=== PATIENT | female | born 1960 | race Caucasian/White ===

== ENCOUNTER 2019-07-09 09:11 | Outpatient (CLI) | payer OTHER, SELFPAY ==
--- NOTE | 2019-07-09 10:08 | CT_ITS ---
WS: [id number] CT CHEST TECHNIQUE: Contrast enhanced CT of the chest with coronal and sagittal reformatted images. CLINICAL INFORMATION: SMOKING HISTORY COMPARISON: None. DLP: 583.[address] scans at [facility] use at least one of these dose optimization techniques: automat ed exposure control; mA and/or kV adjustment per patient size (includes targeted exams where dose is matched to clinical indication); or iterative reconstruction. FINDINGS: Mild chronic emphysematous changes. No acute pulmonary infiltrates. No suspicious pulmonary parenchym al opacities. No pleural fluid. No mediastinal or hilar lymphadenopathy. Small hepatic cyst left hepa tic lobe measuring 8 mm. Mild diffuse fatty infiltration of the liver. Small esophageal hiatal hernia . Normal caliber thoracic aorta. Proximal pulmonary arteries appear normal. Laminectomy defects lower thoracic spine. CT/CT chest w con* [id number] IMPRESSION: 1. No suspicious pulmonary parenchymal opacities today. 2. No acute pulmonary infiltrates. No consolidation or pleural fluid. 3. No mediastinal or hilar lymphadenopathy. 4. Small esophageal hiatal hernia. 5. Mild diffuse infiltration of the liver with a stable small left hepatic cys t measuring 8 mm. 6. No other significant changes from previous.
[2019-07-09] MEDS: iohexol 300 mg/mL 100 mL Btl IV (11:16)
== END 2019-07-09 09:12 | disposition home or self-care (01) ==
LOC: RAD 09:17
PROVIDERS: Family Provider Family Medicine; PCP Family Medicine; Visit Provider Family Medicine
DX: Z87.891 Personal history of nicotine dependence (principal); K44.9 Diaphragmatic hernia without obstruction or gangrene; K76.89 Other specified diseases of liver
CPT/HCPCS: 71260

== ENCOUNTER 2019-10-16 09:20 | Emergency (ER) | payer OTHER, SELFPAY ==
[2019-10-16 09:25] VITALS: BMI 32.0
--- NOTE | 2019-10-16 09:28 | XR_ITS ---
WS: [id number] RIGHT SHOULDER: 3 VIEW(S) TECHNIQUE: Internal and external rotation with Y view. HISTORY: shoulder and arm pain COMPARISON: None available. No fracture or dislocation or soft tissue abnormality. Mild AC joint and glenohumeral joint arthritis. XR/XR shoulder RT min 2V* [id number] IMPRESSION: Mild AC joint and glenohumeral joint arthritis.
[2019-10-16 09:34] VITALS: BP 175/121; PULSE 89; RESP 18; TEMP 36.9; O2SAT 98
--- NOTE | 2019-10-16 10:05 | ED_ITS ---
HPI - Extremity Problem General: Chief complaint: Extremity Problem,Nontraumatic Stated complaint: RIGHT ARM PAIN Time Seen by Provider: 10/16/19 09:22 History of Present Illness: HPI Narrative: Severe right shoulder pain radiates down the right arm. This started 3 days ago. Patient does not give a history of any trauma. Complaint: extremity pain Onset (ago): day(s) Pain Consistency: constant Location: right and upper extremity Quality: burning, aching and constant Radiation: distal Relieving factors: nothing Exacerbating factors: range of motion Associated symptoms: Reports arthralgias Review of Systems General: Reports: 10 or more systems reviewed and unremarkable except in HPI and below Musc: Reports: extremity pain, joint pain, joint stiffness and limited range of motion PFSH ED PFSH: Social History Smoking and tobacco status: current every day smoker Physical Exam Extremity: COMMON NORMALS: normal capillary refill and no clubbing, cyanosis or edema RIGHT UPPER EXTREMITY: Yes shoulder joint Right shoulder: Yes pa lpation and Yes ROM (Decreased due to pain) Course Vital Signs: Vital signs: Vital Signs Temperature 98.4 F 10/16/19 09:34 Pulse Rate 89 10/16/19 09:34 Respiratory Rate 18 10/16/19 09:34 Blood Pressure 175/121 10/16/19 09:34 Pulse Oximetry 98 10/16/19 09:34 Discharge Plan Discharge Patient Disposition: Home, Self-Care Clinical Impression: Degenerative joint disease of right shoulder Qualifiers: Osteoarthritis type: primary Qualified Code(s): M19.011 - Primary o steoarthritis, right shoulder Condition: Stable Prescriptions: New cyclobenzaprine 10 mg tablet 10 mg PO Q8H PRN (Reason: muscle spasm) Qty: 20 RF: 0 hydrocodone-acetaminophen 5-325 mg tablet 1 tab PO Q4H PRN (Reason: pain) Qty: 10 RF: 0 No Action gabapentin RF: 0 Ativan RF: 0 ibuprofen 800 mg Tablet RF: 0 Imitrex RF: 0 atenolol RF: 0 metformin RF: 0 Discharge Orders: Discharge Order (Routine); Ordered 10/16/19 Ordered By: David Loving Referrals: Alli Barbour MD [Primary Care Provider] - Patient Instructions: Arthralgia (ED) Coding Level of Care Code ED Computer Engineering Technician for Chg Fwd Exam Problem Focused
[2019-10-16 10:24] VITALS: BP 213/122; PULSE 83; RESP 18; O2SAT 98
[2019-10-16 10:28] VITALS: BP 213/122; PULSE 83; RESP 18; O2SAT 98
== END 2019-10-16 10:15 | disposition home or self-care (01) ==
PROVIDERS: Emergency Provider Family Medicine; Family Provider Family Medicine; PCP Family Medicine
DX: M19.011 Primary osteoarthritis, right shoulder (principal); F17.210 Nicotine dependence, cigarettes, uncomplicated
CPT/HCPCS: 12345; 73030; 99281; 99282

== ENCOUNTER 2020-02-26 16:11 | Outpatient (CLI) | payer OTHER, SELFPAY ==
--- NOTE | 2020-02-26 16:29 | MR_ITS ---
WS: [id number] MRI LEFT HIP NONCONTRAST TECHNIQUE: Axial T1, axial T2 fat sat, coronal T1, coronal STIR, sagittal T2 fat sat, sagittal T1, an d sagittal T2 fat sat, of both hips. CLINICAL INFORMATION: LEFT HIP PAIN COMPARISON: None. FINDINGS: Normal anatomic alignment. No acute fractures. Normal bone marrow signal in the femoral heads and nec ks. Proximal femurs demonstrate normal bone marrow signal. Sacrum and sacral ala are normal. Mild deg enerative arthritis with joint space narrowing. No evidence of avascular necrosis or subchondral racheal apse. No significant joint effusion. Normal acetabulum. Normal visualized soft tissues. No drainable fluid collection or subcutaneous edema. Sigmoid diverticulosis. No evidence of acute diverticulitis. No inguinal lymphadenopathy. MR/MR hip LT wo con* [id number] IMPRESSION: 1. Mild joint space narrowing both hips. No acute fractures. 2. No evidence of subchondral edema or subchondral collapse. No evidence of av ascular necrosis. 3. No edema in the left femoral head or neck. 4. Normal subcutaneous soft tissues. 5. No significant joint effusion.
== END 2020-02-26 16:12 | disposition home or self-care (01) ==
LOC: RADSHAW 16:16
PROVIDERS: Family Provider Family Medicine; PCP Family Medicine; Visit Provider Family Medicine
DX: M25.552 Pain in left hip (principal)
CPT/HCPCS: 73721

== ENCOUNTER → 2020-03-05 08:46 | Outpatient (BNVA) | payer OTHER, SELFPAY | PROVIDERS: Family Provider Family Medicine; PCP Family Medicine; Referring Provider Family Medicine; Visit Provider Podiatrist Foot & Ankle Surgery | DX: M79.671 Pain in right foot (principal) | CPT/HCPCS: 73630 ==

== ENCOUNTER 2020-04-06 09:28 | Emergency (ER) | payer OTHER, SELFPAY ==
--- NOTE | 2020-04-06 09:31 | XRR_ITS ---
PROCEDURE INFORMATION: Exam: XR Chest, 1 View Exam date and time: 04/06/2020 10:07 AM Age: 59 years old Clinical indication: Shortness of breath; Additional info: Covid and SOB TECHNIQUE: Imaging protocol: XR of the chest Views: 1 view. COMPARISON: CT chest w con* [id number] 07/09/2019 11:22 AM FINDINGS: Lungs: Unremarkable. No consolidation. Pleural space: Unremarkable. No evidence of pleural effusion or pneumothorax. Heart/Mediastinum: Unremarkable. No cardiomegaly. Bones/joints: Unremarkable. XR/XR chest 1V portable [id number] IMPRESSION: No acute findings.
[2020-04-06 09:41] VITALS: BP 166/81; PULSE 85; RESP 17; O2SAT 98; BMI 31.6
--- NOTE | 2020-04-06 09:49 | W.ED.SOB ---
HPI - SOB/Dyspnea General: Chief Complaint: Shortness of Breath/Dyspnea Stated Complaint: SOB/COVID+ Time Seen by Provider: 04/06/20 09:30 Source: patient Mode of arrival: ambulatory Limitations: no limitations History of Present Illness: HPI Narrative: 59-year-old female who tested positive for COVID 2 days ago. She states she has been checking her oxygen and this morning got below 95% she was concerned. Patient's here room air oxygen is 98%. She has had a mild fever and cough. She does have a history of COPD. Patient is able speak in full senses. She denies any chest pain. Associated symptoms: Deny abdominal pain, chest pain, fever(s), nausea or vomiting Review of Systems Const: Denies: fever(s), chills, body aches or change in appetite Eyes: Denies: blurry vision or eye discomfort ENMT: Denies: throat pain or dental pain Card: Denies: chest pain Resp: Reports: dyspnea and non-productive cough GI: Denies: abdominal pain, nausea, vomiting or diarrhea : Denies: dysuria Musc: Denies: neck pain or back pain Skin/Breast: Denies: rash Neuro: Denies: headache(s) Psych: Denies: depression Dayne/Lymph: Denies: easy bruising All/Imm: Denies: urticaria PFSH ED PFSH: Medical History COPD (chronic obstructive pulmonary disease) Diabetes Hypertension Tumor Surgical History H/O: hysterectomy History of appendectomy Hx of tonsillectomy Social History Smoking and tobacco status: current every day smoker Physical Exam Const: COMMON NORMALS: no acute distress, patient oriented x3 and healthy appearing HENMT: COMMON NORMALS: normocephalic and atraumatic HEAD & SCALP: normocephalic and atraumatic Eye: COMMON NORMALS: Equal, round and reactive pupils present and EOMs intact bilaterally PUPIL: Yes Equal, round and reactive pupils present Neck/C-Spine: COMMON NORMALS: full ROM and supple Chest: COMMONS NORMALS: normal inspection of the chest and normal palpation of entire chest wall Resp: COMMON NORMALS: normal respiratory effort, No retractions, No use of accessory muscles and clear to auscultation bilaterally AUSCULTATION: clear to auscultation bilaterally Cardio: COMMON NORMALS: regular rate, regular rhythm and No murmurs present (Cardio) RATE: regular rate RHYTHM: regular rhythm GI: COMMON NORMALS: Normal to inspection, nondistended, normoactive bowel sounds present, Soft to palpation, non-tender and no masses PALPATION: Yes Soft to palpation Extremity: COMMON NORMALS: normal to inspection and full ROM Neuro: COMMON NORMALS: patient oriented x3, moves all extremities and no focal motor deficits Psych: COMMON NORMALS: mental status grossly normal, Normal thought process present and cooperative THOUGHT PROCESS: Normal thought process present Skin: COMMON NORMALS: no rashes or lesions noted and no wounds GENERAL SKIN EXAM: no rashes or lesions noted Course Vital Signs: Vital signs: Vital Signs Pulse Rate 85 04/06/20 09:41 Respiratory Rate 17 04/06/20 09:41 Blood Pressure 166/81 04/06/20 09:41 Pulse Oximetry 98 04/06/20 09:41 MDM - SOB/Dyspnea MDM Narrative: Medical decision making narrative: Patient presents here with coronavirus. Patient is well-appearing here and oxygenation saturations have been in the mid 90s. She is in minimal distress here. We will give her Decadron and sent her home on albuterol. She has no signs of severe pneumonia. She is stable for discharge and is to follow-up with her PCP in 3 to 5 days and return if worsening. She is to continue to monitor her oxygen at home. Discharge Plan Discharge Patient Disposition: Home Clinical Impression: Pneumonia due to COVID-19 virus Condition: Stable Prescriptions: New albuterol sulfate 2.5 mg /3 mL (0.083 %) solution for nebulization 2.5 mg INHALATION Q4H PRN (Reason: shortness of breath or wheezing) Qty: 90 RF: 0 No Action (DME) Sole supports See Rx Instructions .Route .MEDSUPPLY Qty: 1 RF: 0 gabapentin RF: 0 Ativan RF: 0 ibuprofen 800 mg Tablet RF: 0 Imitrex RF: 0 atenolol RF: 0 metformin RF: 0 cyclobenzaprine 10 mg tablet 10 mg PO Q8H PRN (Reason: muscle spasm) Qty: 20 RF: 0 hydrocodone-acetaminophen 5-325 mg tablet 1 tab PO Q4H PRN (Reason: pain) Qty: 10 RF: 0 Discharge Orders: Discharge Order (Routine); Ordered 04/06/20 Ordered By: Abdoul Munson Referrals: Alli Barbour MD [Primary Care Provider] - 1-3 days Discharge Diet: Advance as tolerated Discharge Activity: Resume usual activity Patient Instructions: Upper Respiratory Infection (ED) Coding Level of Care Code ED Behavior Support Specialist for Chg Fwd Exam Comprehensive
[2020-04-06 10:21] VITALS: PULSE 78; RESP 18; O2SAT 93
[2020-04-06] MEDS: albuterol 8 gm MDI 2 PUFF INHALATION (10:21)
[2020-04-06 10:34] VITALS: BP 135/83; PULSE 84; RESP 18; O2SAT 98
== END 2020-04-06 10:35 | disposition home or self-care (01) ==
LOC: ER 10:11
PROVIDERS: Emergency Provider Emergency Medicine; PCP Family Medicine
DX: J44.0 Chronic obstructive pulmonary disease with (acute) lower respiratory infection (principal); U07.1 COVID-19; J12.89 Other viral pneumonia; E11.9 Type 2 diabetes mellitus without complications; I10 Essential (primary) hypertension; F17.210 Nicotine dependence, cigarettes, uncomplicated
CPT/HCPCS: 12345; 71045; 94640; 99281; 99283; J3535

== ENCOUNTER 2020-04-11 09:45 | Inpatient (IN) | payer OTHER, SELFPAY ==
[2020-04-11] VITALS (12 sets, daily range): BP systolic 99–157; BP diastolic 64–95; PULSE 61–90; RESP 18–24; TEMP 36.3–37.3; O2SAT 91–96; BMI 30.7
--- NOTE | 2020-04-11 10:09 | XR_ITS ---
WS: [id number] Portable AP upright chest, 04/11/2020 Clinical Data: dyspnea/COVID + Comparison: Portable chest, 04/06/2020. Findings: No nodules, masses or effusions are seen. The heart is normal. The pulmonary vascularity is not increased. No pneumonia or pneumothorax is seen. XR/XR chest 1V portable [id number] Impression: Negative chest.
[2020-04-11 10:29] LABS: ABG PCO2 31.7 mmHg (35-45); ABG PH Result 7.46 (7.35-7.45); Arterial Blood Gas Hematocrit 44.4 % (37-47); Base Excess ABG -0.5 mmol/L (-2.0-2.0); Blood Gas Allen Test Pos; Blood Gas Operator Identificat CAK; Blood Gas Sample Site Radial, left; Blood Gas Sample Type Arterial; HCO3 ABG 22.5 mmol/L (22-26); Oxygen Device ROOM AIR; PO2 ABG 60.2 mmHg (80.0-100.0)
--- NOTE | 2020-04-11 10:45 | W.ED.FEVER ---
HPI - Fever General: Chief Complaint: Fever Stated Complaint: covid symptoms Time Seen by Provider: 04/11/20 09:51 History of Present Illness: HPI Narrative: Pleasant 59-year-old female patient presents to the emergency department, tested positive for COVID-19 on 04/05/2020 at [place]. She was seen in the emergency department on 04/06/2020 due to O2 saturation monitoring at home readings of less than 95% yet greater than 90. She reports onset of hypoxia, O2 saturations maintaining in the 80s at home. She reports increased shortness of breath past 12 hours. She is diabetic, takes metformin for her diabetes. She reports nausea, decreased appetite. MD elicited complaint: fever and weakness Exacerbating factors: exertion Relieving factors: rest Associated symptoms: Reports chills, cough, nausea and weight loss; Deny abdominal pain, chest pain, diarrhea, dysuria, headache(s) or vomiting Review of Systems General: Reports: 10 or more systems reviewed and unremarkable except in HPI and below Const: Reports: fever(s), chills, fatigue and malaise Eyes: Denies: blurry vision or eye redness ENMT: Denies: throat pain, dental pain or disequilibrium Card: Denies: chest pain, palpitations or irregular heart rhythm Resp: Denies: dyspnea, productive cough, non-productive cough or wheezing GI: Reports: nausea; Denies: abdominal pain, vomiting or diarrhea : Denies: difficulty voiding or dysuria Musc: Reports: muscle weakness; Denies: neck pain or back pain Skin/Breast: Denies: rash or pruritus Neuro: Denies: headache(s), weakness in extremities or behavioral changes Psych: Reports: anxiety (Related to COVID diagnosis) Dayne/Lymph: Denies: easy bruising [facility] ED PFSH: Medical History (Updated 04/11/20 @ 17:31 by Deirdre Rodgers DO) COPD (chronic obstructive pulmonary disease) Diabetes Hypertension Tumor Surgical History H/O: hysterectomy History of appendectomy Hx of tonsillectomy Social History Smoking and tobacco status: current every day smoker Physical Exam Const: COMMON NORMALS: no acute distress, patient oriented x3 and alert GENERAL APPEARANCE: cooperative, frail appearing and well hydrated NUTRITIONAL APPEARANCE: obese ORIENTATION/CONSCIOUSNESS: Yes awake, Yes oriented to person, Yes oriented to place and Yes oriented to time HENMT: COMMON NORMALS: normocephalic and Normal external nose present HEAD & SCALP: normocephalic NOSE: Normal external nose present MOUTH: other (Dry mucous membranes present) Eye: COMMON NORMALS: Equal, round and reactive pupils present and EOMs intact bilaterally GENERAL EYE: appearance normal, both eyes and all related structures PUPIL: Yes Equal, round and reactive pupils present Neck/C-Spine: COMMON NORMALS: full ROM and no lymphadenopathy GENERAL: Yes normal visual inspection, Yes trachea midline and No lymphadenopathy CERVICAL SPINE: Yes cervical ROM normal and No Cervical spine tenderness Lymph: LYMPHATIC: no lymphadenopathy noted Chest: COMMONS NORMALS: normal inspection of the chest and normal palpation of entire chest wall Resp: COMMON NORMALS: normal respiratory effort EFFORT & INSPECTION: Yes able to speak in complete sentences, Yes labored and Yes uses accessory muscles (Mild) AUSCULTATION: rhonchi and diminished lung sounds (Bases) Cardio: COMMON NORMALS: regular rhythm, S1 normal heart sound present, S2 normal heart sound present and Peripheral pulses 2+ throughout RHYTHM: regular rhythm HEART SOUNDS: S1 normal heart sound present and S2 normal heart sound present PERIPHERAL PULSES: Peripheral pulses 2+ throughout GI: COMMON NORMALS: Normal to inspection, nondistended, normoactive bowel sounds present, Soft to palpation and non-tender INSPECTION: Yes normal to inspection PALPATION: Yes Soft to palpation : COMMON NORMALS: Yes no CVA tenderness BLADDER/KIDNEY EXAM: Yes no CVA tenderness Back/Pelvis: COMMON NORMALS: no CVA tenderness and thoracic and lumbar spine normal to inspection Extremity: COMMON NORMALS: normal to inspection and capillary refill normal Neuro: COMMON NORMALS: patient oriented x3 and no focal motor deficits SENSORIUM/ORIENTATION: Yes alert, Yes oriented to person, Yes oriented to place and Yes oriented to time Psych: COMMON NORMALS: mental status grossly normal, Normal thought process present and cooperative ACTIVITY/MOTOR BEHAVIOR: Yes appropriate eye contact THOUGHT PROCESS: Normal thought process present Skin: COMMON NORMALS: no rashes or lesions noted GENERAL SKIN EXAM: no rashes or lesions noted and turgor decreased Course ED course: Case discussed Dr. Bautista, patient will need admission secondary to hypoxia with supplemental O2, positive COVID, transfer of care Vital Signs: Vital signs: Vital Signs Temperature 97.7 F 04/11/20 16:06 Pulse Rate 64 04/11/20 16:06 Respiratory Rate 20 H 04/11/20 16:06 Blood Pressure 133/64 04/11/20 16:06 Pulse Oximetry 96 04/11/20 16:06 MDM - Fever Lab Data: Labs: Lab Results 04/11/20 04/11/20 04/11/20 Range/Units 10:18 10:35 10:35 WBC 5.9 (4.0-10.0) 10^3/ uL RBC 4.85 (4.1-5.3) 10^6/u L Hgb 14.6 (11.5-15.3) g/dL Hct 43.5 (37.0-47.0) % MCV 89.7 (81-99) fL MCH 30.1 (28.0-34.0) pg MCHC 33.6 (30.0-36.0) g/dL RDW 12.6 (12.1-15.1) % Plt Count 113 L (130-400) 10^3/c mm MPV 10.9 H (7.4-10.4) fL Neut % (Auto) 51.3 % Lymph % (Auto) 34.4 % Alexander % (Auto) 12.8 % Eos % (Auto) 0.3 % Baso % (Auto) 0.3 % Neut # (Auto) 3.02 (1.8-7.7) 10^3/u L Lymph # (Auto) 2.0 (0.8-4.8) 10^3/u L Alexander # (Auto) 0.8 (0.2-0.9) 10^3/u L Eos # (Auto) 0.0 (0.0-0.8) 10^3/u L Baso # (Auto) 0.0 (0.0-0.1) 10^3/u L Nucleated RBC % (a uto) 0 % Nucleated RBCs # 0.0 /100WBC PT 12.80 (12.1-14.9) SECO NDS INR 0.94 (0.8-1.2) APTT 29.0 (23.9-36.7) SECO NDS Fibrinogen 548 H (174-498) mg/dL D-Dimer 0.45 (0-0.59) ug/mIFE U Specimen Type Arterial Sample Site Radial, left ABG pH 7.46 H (7.35-7.45) ABG pCO2 31.7 L (35-45) mmHg ABG pO2 60.2 L (80.0-100.0) mmH g ABG HCO3 22.5 (22-26) mmol/L ABG Base Excess -0.5 (-2.0-2.0) mmol/ L Jensen Test Pos Hematocrit 44.4 (37-47) % O2 Delivery Device Room air FiO2 21.0 % Gis Physical Scientist ID Cak Sodium (136-145) mmol/L Potassium (3.5-5.1) mmol/L Chloride (98-107) mmol/L Carbon Dioxide (22-29) mmol/L Anion Gap (5-19) BUN (8-23) mg/dL Creatinine (0.5-0.9) mg/dL GFR Calculation (90-130) mL/min Glucose (65-115) mg/dL Calculated Osmolal ity (285-295) mOsm/k g Lactic Acid (0.5-2.2) mmol/L Calcium (8.5-10.5) mg/dL Magnesium (1.7-2.3) mg/dL Ferritin (15-150) ng/mL Total Bilirubin (0.15-1.2) mg/dL AST (0-32) U/L ALT (0-33) U/L Alkaline Phosphata se (35-105) IU/L Lactate Dehydrogen ase (135-214) U/L Creatine Kinase (26-192) U/L C-Reactive Protein (0.0-4.9) mg/L Total Protein (6.6-8.7) g/dL Albumin (3.5-5.2) g/dL Globulin (1.3-4.6) g/dL Procalcitonin (0-0.5) ng/mL SARS-CoV-2 Ag (Rap id) (Negative) 04/11/20 04/11/20 04/11/20 Range/Units 10:35 10:35 11:25 WBC (4.0-10.0) 10^3/ uL RBC (4.1-5.3) 10^6/u L Hgb (11.5-15.3) g/dL Hct (37.0-47.0) % MCV (81-99) fL MCH (28.0-34.0) pg MCHC (30.0-36.0) g/dL RDW (12.1-15.1) % Plt Count (130-400) 10^3/c mm MPV (7.4-10.4) fL Neut % (Auto) % Lymph % (Auto) % Alexander % (Auto) % Eos % (Auto) % Baso % (Auto) % Neut # (Auto) (1.8-7.7) 10^3/u L Lymph # (Auto) (0.8-4.8) 10^3/u L Alexander # (Auto) (0.2-0.9) 10^3/u L Eos # (Auto) (0.0-0.8) 10^3/u L Baso # (Auto) (0.0-0.1) 10^3/u L Nucleated RBC % (a uto) % Nucleated RBCs # /100WBC PT (12.1-14.9) SECO NDS INR (0.8-1.2) APTT (23.9-36.7) SECO NDS Fibrinogen (174-498) mg/dL D-Dimer (0-0.59) ug/mIFE U Specimen Type Sample Site ABG pH (7.35-7.45) ABG pCO2 (35-45) mmHg ABG pO2 (80.0-100.0) mmH g ABG HCO3 (22-26) mmol/L ABG Base Excess (-2.0-2.0) mmol/ L Jensen Test Hematocrit (37-47) % O2 Delivery Device FiO2 % Gis Physical Scientist ID Sodium 139 (136-145) mmol/L Potassium 3.0 L (3.5-5.1) mmol/L Chloride 104 (98-107) mmol/L Carbon Dioxide 22 (22-29) mmol/L Anion Gap 16.0 (5-19) BUN 16 (8-23) mg/dL Creatinine 0.6 (0.5-0.9) mg/dL GFR Calculation 102.0 (90-130) mL/min Glucose 106 (65-115) mg/dL Calculated Osmolal ity 290 (285-295) mOsm/k g Lactic Acid 1.2 (0.5-2.2) mmol/L Calcium 8.9 (8.5-10.5) mg/dL Magnesium 2.1 (1.7-2.3) mg/dL Ferritin 271 H (15-150) ng/mL Total Bilirubin 0.4 (0.15-1.2) mg/dL AST 22 (0-32) U/L ALT 20 (0-33) U/L Alkaline Phosphata se 88 (35-105) IU/L Lactate Dehydrogen ase 173 (135-214) U/L Creatine Kinase 47 (26-192) U/L C-Reactive Protein 17.4 H (0.0-4.9) mg/L Total Protein 7.0 (6.6-8.7) g/dL Albumin 4.1 (3.5-5.2) g/dL Globulin 2.9 (1.3-4.6) g/dL Procalcitonin 0.03 (0-0.5) ng/mL SARS-CoV-2 Ag (Rap id) Positive H (Negative) Discharge Plan Discharge Prescriptions: No Action albuterol sulfate 2.5 mg /3 mL (0.083 %) solution for nebulization 2.5 mg INHALATION Q4H PRN (Reason: shortness of breath or wheezing) Qty: 90 RF: 0 gabapentin 600 mg Tablet 600 mg PO TID RF: 0 metformin 500 mg Tablet 500 mg PO BID RF: 0 ibuprofen 800 mg Tablet 800 mg PO TID PRN (Reason: Fever) RF: 0 sumatriptan succinate 25 mg Tablet 25 mg PO Q2H PRN (Reason: Migraine Headache) RF: 0 lorazepam 1 mg Tablet 1 mg PO DAILY PRN (Reason: Anxiety) RF: 0 cyclobenzaprine 10 mg tablet 10 mg PO Q8H PRN (Reason: muscle spasm) Qty: 20 RF: 0 atorvastatin 80 mg tablet 80 mg PO BEDTIME RF: 0 atenolol-chlorthalidone 50-25 mg tablet 1 tab PO DAILY RF: 0 venlafaxine 150 mg capsule,extended release 24hr 150 mg PO DAILY RF: 0 acetaminophen 500 mg Tablet 500 - 1,000 mg PO BID PRN (Reason: Fever) RF: 0 trazodone 100 mg tablet 100 mg PO BEDTIME RF: 0 albuterol sulfate 90 mcg/actuation Hfa Aerosol Inhaler 1 inh INHALATION QID PRN (Reason: Shortness Of Breath) RF: 0 lisinopril 40 mg tablet 40 mg PO DAILY RF: 0 topiramate 50 mg tablet 50 mg PO BID RF: 0 Mucinex 600 mg Tablet Extended Release 12hr 600 mg PO Q12H PRN (Reason: Congestion) RF: 0 Coding Level of Care Code ED Security Systems Specialist for Chg Fwd Exam Comprehensive
[2020-04-11 10:47] LABS: Basophils % 0.3 %; Eosinophils % 0.3 %; Hematocrit 43.5 % (37.0-47.0); Hemoglobin 14.6 g/dL (11.5-15.3); Lymphocytes % 34.4 %; Mean Corpuscular HGB Conc 33.6 g/dL (30.0-36.0); Mean Corpuscular Hemoglobin 30.1 pg (28.0-34.0); Mean Corpuscular Volume 89.7 fL (81-99); Mean Platelet Volume 10.9 fL (7.4-10.4); Monocytes # 0.8 10^3/uL (0.2-0.9); Monocytes % 12.8 %; Neutrophils # 3.02 10^3/uL (1.8-7.7); Neutrophils % 51.3 %; Nucleated Red Blood Cells % 0 %; Platelet Count 113 10^3/cmm (130-400); Red Blood Count 4.85 10^6/uL (4.1-5.3); Red Cell Distribution Width 12.6 % (12.1-15.1); White Blood Count 5.9 10^3/uL (4.0-10.0)
[2020-04-11] MEDS: sodium chloride 0.9% 1,000 ML 999 ML IV ×2 (10:49→12:23)
[2020-04-11 10:58] LABS: INR 0.94 (0.8-1.2)
[2020-04-11 10:59] LABS: Fibrinogen 548 mg/dL (174-498)
[2020-04-11 11:02] LABS: D Dimer 0.45 ug/mIFEU (0-0.59)
[2020-04-11 11:05] LABS: Lactic Sepsis W/Reflex 1.2 mmol/L (0.5-2.2)
[2020-04-11 11:13] LABS: Procalcitonin 0.03 ng/mL (0-0.5)
[2020-04-11 11:25] LABS: Alanine Aminotransferase 20 U/L (0-33); Albumin Level 4.1 g/dL (3.5-5.2); Alkaline Phosphatase 88 IU/L (35-105); Aspartate Amino Transferase 22 U/L (0-32); Blood Urea Nitrogen 16 mg/dL (8-23); C Reactive Protein 17.4 mg/L (0.0-4.9); Calcium 8.9 mg/dL (8.5-10.5); Carbon Dioxide 22 mmol/L (22-29); Chloride 104 mmol/L (98-107); Creatine Phosphokinase 47 U/L (26-192); Ferritin 271 ng/mL (15-150); Globulin 2.9 g/dL (1.3-4.6); Glucose 106 mg/dL (65-115); Lactate Dehydrogenase 173 U/L (135-214); Magnesium 2.1 mg/dL (1.7-2.3); Osmolality Calculated 290 mOsm/kg (285-295); Sodium 139 mmol/L (136-145); Total Bilirubin 0.4 mg/dL (0.15-1.2)
[2020-04-11 12:13] LABS: SARS Covid-2 Antigen Positive (Negative)
[2020-04-11] MEDS: acetaminophen 500 mg Tablet 1000 MG PO (12:22)
--- NOTE | 2020-04-11 17:27 | PM.HP ---
Providers/Chief Complaint Primary Care Provider: Alli Barbour MD Chief Complaint: covid symptoms History of Present Illness Mary Ann Donohue is a 59 year old female with a past medical history of hypertension, migraine headaches and COPD that presents to the emergency department today for increasing shortness of breath. Patient reported that she has been having symptoms over the past 1 week. She stated that she was tested for COVID-19 and returned positive. She believes that it is community spread. She reports increasing cough, nonproductive, no hemoptysis. Stated that she lives at home with her and he has not had any symptoms. She also reports loss of taste and smell as well as diarrhea. Decreased appetite over the past 1 week. Reports she has not been taking any of her medications this week due to not feeling well. Patient was sent home with a pulse oxygen monitor and noted that her oxygen level went into the 80s therefore she came back into the hospital for further evaluation and treatment. Patient reported that she quit smoking 2 days ago Review of Systems Const: Reports: fever(s), body aches, fatigue and malaise; Denies: chills Eyes: Denies: change in vision ENMT: Reports: nasal congestion Card: Denies: chest pain, palpitations or edema Resp: Reports: dyspnea and non-productive cough; Denies: productive cough or hemoptysis GI: Reports: diarrhea; Denies: abdominal pain, nausea, vomiting, constipation, hematochezia or melena : Denies: dysuria or hematuria Musc: Denies: extremity pain or muscle cramps Skin/Breast: Denies: rash or new lesions Neuro: Denies: headache(s) or dizziness Psych: Denies: anxiety or depression Endo: Denies: polyuria or hot flashes Dayne/Lymph: Denies: easy bruising or easy bleeding Medications/Allergies Home Medications Medication Instructions Recorded Confirmed Last Taken Type cyclobenzaprine 10 mg PO Q8H PRN #20 tab 10/16/19 04/11/20 Unknown Rx gabapentin 600 mg PO TID 10/16/19 04/11/20 Unknown History ibuprofen 800 mg PO TID PRN 10/16/19 04/11/20 04/10/20 History lorazepam 1 mg PO DAILY PRN 10/16/19 04/11/20 Unknown History metformin 500 mg PO BID 10/16/19 04/11/20 Unknown History sumatriptan succinate 25 mg PO Q2H PRN 10/16/19 04/11/20 Unknown History albuterol sulfate 2.5 mg INHALATION Q4H PRN #90 ml 04/06/20 04/11/20 04/11/20 Rx acetaminophen 500 - 1,000 mg PO BID PRN 04/11/20 04/11/20 04/10/20 History albuterol sulfate 1 inh INHALATION QID PRN 04/11/20 04/11/20 04/11/20 History atenolol-chlorthalidone 1 tab PO DAILY 04/11/20 04/11/20 Unknown History atorvastatin 80 mg PO BEDTIME 04/11/20 04/11/20 04/10/20 History guaifenesin [Mucinex] 600 mg PO Q12H PRN 04/11/20 04/11/20 04/11/20 History lisinopril 40 mg PO DAILY 04/11/20 04/11/20 Unknown History topiramate 50 mg PO BID 04/11/20 04/11/20 Unknown History trazodone 100 mg PO BEDTIME 04/11/20 04/11/20 Unknown History venlafaxine 150 mg PO DAILY 04/11/20 04/11/20 Unknown History Allergies Allergy/AdvReac Type Severity Reaction Status Date / Time No Known Allergies Allergy Verified 04/11/20 10:01 PFSH Acute PFSH: Medical History COPD (chronic obstructive pulmonary disease) Diabetes Hypertension Tumor Surgical History H/O: hysterectomy History of appendectomy Hx of tonsillectomy Social History Smoking and tobacco status: current every day smoker Vitals/I&O/Wt Last Vital Signs Temp 97.7 F 04/11/20 16:06 Pulse 64 04/11/20 16:06 Resp 20 H 04/11/20 16:06 BP 133/64 04/11/20 16:06 Pulse Ox 96 04/11/20 16:06 04/11/20 04/11/20 04/11/20 06:59 14:59 22:59 Intake Total 1000 / 1000 Balance 1000 / 1000 Weight last 48 hrs Weight 76.204 kg Physical Exam Const: COMMON NORMALS: patient oriented x3 and alert GENERAL APPEARANCE: cooperative ORIENTATION/CONSCIOUSNESS: Yes awake, Yes oriented to person, Yes oriented to place and Yes oriented to time HENMT: COMMON NORMALS: normocephalic and atraumatic HEAD & SCALP: normocephalic and atraumatic Eye: COMMON NORMALS: Equal, round and reactive pupils present PUPIL: Yes Equal, round and reactive pupils present Neck/C-Spine: COMMON NORMALS: supple GENERAL: Yes normal visual inspection Resp: EFFORT & INSPECTION: Yes tachypneic and Yes uses accessory muscles AUSCULTATION: clear to auscultation bilaterally, no rhonchi and wheezes Cardio: COMMON NORMALS: regular rate, regular rhythm and No murmurs present (Cardio) RATE: regular rate RHYTHM: regular rhythm GI: COMMON NORMALS: Soft to palpation and non-tender INSPECTION: No abdominal distension AUSCULTATION: Yes normoactive bowel sounds PALPATION: Yes Soft to palpation Extremity: COMMON NORMALS: no clubbing, cyanosis or edema and no calf tenderness Neuro: COMMON NORMALS: patient oriented x3, CN's II-XII intact bilaterally, moves all extremities and no focal motor deficits SENSORIUM/ORIENTATION: Yes alert, Yes oriented to person, Yes oriented to place and Yes oriented to time SPEECH: speech normal Psych: COMMON NORMALS: mental status grossly normal and cooperative Skin: COMMON NORMALS: no rashes or lesions noted GENERAL SKIN EXAM: no rashes or lesions noted Data : 04/11/20 10:35 04/11/20 10:35 CXR: I personally reviewed and interpreted this imaging study as follows: Radiologist's impression: Portable AP upright chest, 04/11/2020 Clinical Data: dyspnea/COVID + Comparison: Portable chest, 04/06/2020. Findings: No nodules, masses or effusions are seen. The heart is normal. The pulmonary vascularity is not increased. No pneumonia or pneumothorax is seen. XR/XR chest 1V portable [id number] Impression: Negative chest. A&P Assessment and plan (1) Pneumonia due to COVID-19 virus: Admit to medical floor Isolation precautions with droplet and contact precautions On COVID-19 precautions patient tested positive prior to admission Continue with respiratory therapy to assess and treat, oxygen per protocol We will start on room?severe and dexamethasone, discussed with patient and her via telephone conference the risk and benefits of medication, they verbalized understanding and agreed with plan. Status: Acute (2) Diabetes: Low-dose sliding scale insulin as needed, hold home metformin Status: Acute (3) COPD (chronic obstructive pulmonary disease): With COVID-19 viral pneumonia as noted above, plan as above Status: Acute (4) Hypertension: Patient has been off of her lisinopril with decreased oral intake over the past week, continue on atenolol along with chlorthalidone, hold lisinopril Status: Acute Additional A&P Information Prophylaxis: Lovenox Diet: Carbohydrate consistent CODE STATUS: Do Not Resuscitate/DNI this was discussed with patient on admission, her was on face time during this conversation, no further questions at this time Attestations Medical Necessity Statement*: Patient requires hospitalization due to COVID-19 viral pneumonia Coding Level of Care Code 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
[2020-04-11] MEDS: dexamethasone 4 mg/mL INJ 6 MG IVP (18:23)
[2020-04-11] MEDS: enoxaparin 40 mg/0.4 mL Syringe SUBCUT (18:23)
[2020-04-11 19:36] LABS: Thyroid Stimulating Hormone 2.97 uIU/mL (0.27-4.20)
[2020-04-11 21:17] LABS: Glucose Point of Care 116 mg/dL (70-110)
[2020-04-11] MEDS: gabapentin 300 mg Capsule 600 MG PO (22:14)
[2020-04-11] MEDS: trazodone 100 mg Tablet PO (22:14)
[2020-04-11] MEDS: topiramate 100 mg Tablet 50 MG PO ×2 (22:25→22:44)
[2020-04-11] MEDS: sodium chloride 0.9% 1,000 ML 50 ML IV (22:29)
[2020-04-12] VITALS (10 sets, daily range): BP systolic 111–134; BP diastolic 69–81; PULSE 54–71; RESP 16–22; TEMP 36.4–36.9; O2SAT 89–98
[2020-04-12 06:23] LABS: Basophils % 0.3 %; Hematocrit 41.1 % (37.0-47.0); Hemoglobin 13.6 g/dL (11.5-15.3); Lymphocytes # 1.2 10^3/uL (0.8-4.8); Lymphocytes % 32.2 %; Mean Corpuscular HGB Conc 33.1 g/dL (30.0-36.0); Mean Corpuscular Hemoglobin 30.8 pg (28.0-34.0); Mean Platelet Volume 11.6 fL (7.4-10.4); Monocytes # 0.1 10^3/uL (0.2-0.9); Monocytes % 3.3 %; Neutrophils # 2.28 10^3/uL (1.8-7.7); Neutrophils % 63.4 %; Nucleated Red Blood Cells % 0 %; Platelet Count 139 10^3/cmm (130-400); Red Blood Count 4.42 10^6/uL (4.1-5.3); Red Cell Distribution Width 12.9 % (12.1-15.1); White Blood Count 3.6 10^3/uL (4.0-10.0)
[2020-04-12 06:40] LABS: Alanine Aminotransferase 22 U/L (0-33); Albumin Level 3.8 g/dL (3.5-5.2); Alkaline Phosphatase 87 IU/L (35-105); Aspartate Amino Transferase 24 U/L (0-32); Blood Urea Nitrogen 12 mg/dL (8-23); Calcium 8.4 mg/dL (8.5-10.5); Carbon Dioxide 20 mmol/L (22-29); Chloride 109 mmol/L (98-107); Creatinine Clr Calc Pharmacy 144.4443; Globulin 3.1 g/dL (1.3-4.6); Glomerular Filtration Rate 162.8 mL/min (90-130); Glucose 138 mg/dL (65-115); Osmolality Calculated 292 mOsm/kg (285-295); Sodium 140 mmol/L (136-145); Total Bilirubin 0.2 mg/dL (0.15-1.2); Total Protein 6.9 g/dL (6.6-8.7)
[2020-04-12] MEDS: albuterol 8 gm MDI 2 PUFF INHALATION ×2 (09:50→16:14)
[2020-04-12] MEDS: chlorthalidone 25 mg Tablet PO (10:00)
[2020-04-12] MEDS: atenolol 50 mg Tablet PO (10:00)
[2020-04-12] MEDS: topiramate 100 mg Tablet 50 MG PO ×2 (10:01→17:09)
[2020-04-12] MEDS: gabapentin 300 mg Capsule 600 MG PO ×3 (10:01→21:23)
[2020-04-12] MEDS: venlafaxine ER (24HR) 150 mg Capsule PO (10:01)
[2020-04-12 10:25] LABS: Glucose Point of Care 128 mg/dL (70-110)
--- NOTE | 2020-04-12 11:31 | PM.PN ---
Subjective Subjective: Interval history: Patient awake sitting in the chair at time of exam today. She reported some continued cough and shortness of breath. Reported continued loss of taste and smell. Stated that she was able to drink a little bit of water and eat some crackers today. Diarrhea has resolved. Vitals/I&O/Wt Last Vital Signs Temp 97.5 F L 04/12/20 07:19 Pulse 63 04/12/20 09:50 Resp 18 04/12/20 09:50 BP 128/69 04/12/20 07:19 Pulse Ox 94 04/12/20 09:50 04/11/20 04/12/20 04/12/20 22:59 06:59 14:59 Intake Total 120 / 120 Output Total 300 / 300 200 / 500 550 / 550 Balance -300 / 700 -200 / 500 -430 / -430 Weight last 48 hrs Weight 77.791 kg Weight 76.204 kg Physical Exam Const: COMMON NORMALS: patient oriented x3 and alert GENERAL APPEARANCE: cooperative ORIENTATION/CONSCIOUSNESS: Yes awake, Yes oriented to person, Yes oriented to place and Yes oriented to time HENMT: COMMON NORMALS: normocephalic and atraumatic HEAD & SCALP: normocephalic and atraumatic Eye: COMMON NORMALS: Equal, round and reactive pupils present PUPIL: Yes Equal, round and reactive pupils present Neck/C-Spine: COMMON NORMALS: supple GENERAL: Yes normal visual inspection Resp: COMMON NORMALS: clear to auscultation bilaterally EFFORT & INSPECTION: Yes tachypneic and Yes uses accessory muscles AUSCULTATION: clear to auscultation bilaterally, no rhonchi and wheezes Cardio: COMMON NORMALS: regular rate, regular rhythm and No murmurs present (Cardio) RATE: regular rate RHYTHM: regular rhythm Extremity: COMMON NORMALS: no clubbing, cyanosis or edema and no calf tenderness Neuro: COMMON NORMALS: patient oriented x3, CN's II-XII intact bilaterally, moves all extremities and no focal motor deficits SENSORIUM/ORIENTATION: Yes alert, Yes oriented to person, Yes oriented to place and Yes oriented to time SPEECH: speech normal Psych: COMMON NORMALS: mental status grossly normal and cooperative Data : 04/12/20 05:50 04/12/20 05:50 A&P Assessment and plan (1) Pneumonia due to COVID-19 virus: Isolation precautions with droplet and contact precautions On COVID-19 precautions patient tested positive prior to admission Continue with respiratory therapy to assess and treat, oxygen per protocol Continue on Remdesivir and dexamethasone. Status: Acute (2) Diabetes: Low-dose sliding scale insulin as needed, hold home metformin Status: Acute (3) COPD (chronic obstructive pulmonary disease): With COVID-19 viral pneumonia as noted above, plan as above Status: Acute (4) Hypertension: Patient has been off of her lisinopril with decreased oral intake over the past week, continue on atenolol along with chlorthalidone, hold lisinopril Status: Acute Additional A&P Information Prophylaxis: Lovenox Diet: Carbohydrate consistent CODE STATUS: Do Not Resuscitate/DNI this was discussed with patient on admission, her was on face time during this conversation, no further questions at this time Attestations Medical Necessity Statement*: Patient requires further hospitalization due to COVID-19 viral pneumonia Coding Level of Care Code 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
[2020-04-12 11:52] LABS: Glucose Point of Care 107 mg/dL (70-110)
[2020-04-12 16:54] LABS: Glucose Point of Care 108 mg/dL (70-110)
[2020-04-12] MEDS: dexamethasone 4 mg/mL INJ 6 MG IVP (17:09)
[2020-04-12] MEDS: enoxaparin 40 mg/0.4 mL Syringe SUBCUT (17:13)
[2020-04-12 20:35] LABS: Glucose Point of Care 160 mg/dL (70-110)
[2020-04-12] MEDS: ondansetron 4 MG Tablet PO (20:47)
[2020-04-12] MEDS: trazodone 100 mg Tablet PO (21:23)
[2020-04-13] VITALS (8 sets, daily range): BP systolic 97–119; BP diastolic 60–69; PULSE 48–69; RESP 14–23; TEMP 36.3–36.9; O2SAT 92–96
[2020-04-13 06:03] LABS: Hematocrit 38.9 % (37.0-47.0); Hemoglobin 12.8 g/dL (11.5-15.3); Lymphocytes # 1.5 10^3/uL (0.8-4.8); Lymphocytes % 35.8 %; Mean Corpuscular HGB Conc 32.9 g/dL (30.0-36.0); Mean Corpuscular Hemoglobin 30.3 pg (28.0-34.0); Mean Platelet Volume 11.5 fL (7.4-10.4); Monocytes # 0.4 10^3/uL (0.2-0.9); Monocytes % 9.1 %; Neutrophils # 2.28 10^3/uL (1.8-7.7); Neutrophils % 54.4 %; Nucleated Red Blood Cells % 0 %; Platelet Count 128 10^3/cmm (130-400); Red Blood Count 4.23 10^6/uL (4.1-5.3); White Blood Count 4.2 10^3/uL (4.0-10.0)
[2020-04-13 06:28] LABS: Alanine Aminotransferase 17 U/L (0-33); Albumin Level 3.8 g/dL (3.5-5.2); Alkaline Phosphatase 79 IU/L (35-105); Anion Gap 13.1 (5-19); Aspartate Amino Transferase 16 U/L (0-32); Blood Urea Nitrogen 13 mg/dL (8-23); Carbon Dioxide 24 mmol/L (22-29); Chloride 107 mmol/L (98-107); Globulin 2.6 g/dL (1.3-4.6); Glucose 147 mg/dL (65-115); Osmolality Calculated 293 mOsm/kg (285-295); Potassium 4.1 mmol/L (3.5-5.1); Sodium 140 mmol/L (136-145); Total Bilirubin 0.2 mg/dL (0.15-1.2); Total Protein 6.4 g/dL (6.6-8.7)
[2020-04-13 06:46] LABS: Glucose Point of Care 130 mg/dL (70-110)
--- NOTE | 2020-04-13 09:24 | PM.PN ---
Subjective Subjective: Interval history: Patient awake in bed at time of exam this morning. She denied any chest pain. Reported continued cough, scant amount of sputum production reported. Patient noted able to slightly taste her food today. Denied any further diarrhea. Vitals/I&O/Wt Last Vital Signs Temp 97.8 F 04/13/20 08:00 Pulse 67 04/13/20 08:47 Resp 22 H 04/13/20 08:47 BP 114/68 04/13/20 08:00 Pulse Ox 94 04/13/20 08:47 04/12/20 04/13/20 04/13/20 22:59 06:59 14:59 Intake Total 1460 / 1580 Output Total 880 / 1730 400 / 2130 Balance 580 / -150 -400 / -550 Weight last 48 hrs Weight 77.791 kg Weight 77.791 kg Weight 76.204 kg Physical Exam Const: COMMON NORMALS: patient oriented x3 and alert GENERAL APPEARANCE: cooperative ORIENTATION/CONSCIOUSNESS: Yes awake, Yes oriented to person, Yes oriented to place and Yes oriented to time HENMT: COMMON NORMALS: normocephalic and atraumatic HEAD & SCALP: normocephalic and atraumatic Eye: COMMON NORMALS: Equal, round and reactive pupils present PUPIL: Yes Equal, round and reactive pupils present Neck/C-Spine: COMMON NORMALS: supple GENERAL: Yes normal visual inspection Resp: COMMON NORMALS: clear to auscultation bilaterally EFFORT & INSPECTION: Yes tachypneic and Yes uses accessory muscles AUSCULTATION: clear to auscultation bilaterally, no rhonchi and wheezes Cardio: COMMON NORMALS: regular rate, regular rhythm and No murmurs present (Cardio) RATE: regular rate RHYTHM: regular rhythm Extremity: COMMON NORMALS: no clubbing, cyanosis or edema and no calf tenderness Neuro: COMMON NORMALS: patient oriented x3, CN's II-XII intact bilaterally, moves all extremities and no focal motor deficits SENSORIUM/ORIENTATION: Yes alert, Yes oriented to person, Yes oriented to place and Yes oriented to time SPEECH: speech normal Psych: COMMON NORMALS: mental status grossly normal and cooperative Data : 04/13/20 05:53 04/13/20 05:53 A&P Assessment and plan (1) Pneumonia due to COVID-19 virus: Isolation precautions with droplet and contact precautions On COVID-19 precautions patient tested positive prior to admission Continue with respiratory therapy to assess and treat, oxygen per protocol Continue on Remdesivir and dexamethasone. Currently on 1 L of oxygen, will continue to wean as tolerated Status: Acute (2) Diabetes: Low-dose sliding scale insulin as needed, hold home metformin Status: Acute (3) COPD (chronic obstructive pulmonary disease): With COVID-19 viral pneumonia as noted above, plan as above Goal oxygen saturation of 90 to 92% due to underlying COPD Status: Acute (4) Hypertension: Patient has been off of her lisinopril with decreased oral intake over the past week, continue on atenolol along with chlorthalidone, hold lisinopril Status: Acute Additional A&P Information Thrombocytopenia: Continue to monitor closely, no evidence of any active bleeding Prophylaxis: Lovenox Diet: Carbohydrate consistent CODE STATUS: Do Not Resuscitate/DNI this was discussed with patient on admission, her was on face time during this conversation, no further questions at this time Attestations Medical Necessity Statement*: Patient requires continued hospitalization due to COVID-19 viral pneumonia Coding Level of Care Code 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
[2020-04-13] MEDS: venlafaxine ER (24HR) 150 mg Capsule PO (10:15)
[2020-04-13] MEDS: chlorthalidone 25 mg Tablet PO (10:16)
[2020-04-13] MEDS: gabapentin 300 mg Capsule 600 MG PO ×3 (10:16→21:27)
[2020-04-13] MEDS: topiramate 100 mg Tablet 50 MG PO ×2 (10:17→17:03)
[2020-04-13] MEDS: atenolol 50 mg Tablet PO (10:19)
[2020-04-13 10:40] LABS: Glucose Point of Care 119 mg/dL (70-110)
[2020-04-13] MEDS: dexamethasone 4 mg/mL INJ 6 MG IVP (17:04)
[2020-04-13 17:16] LABS: Glucose Point of Care 111 mg/dL (70-110)
[2020-04-13] MEDS: enoxaparin 40 mg/0.4 mL Syringe SUBCUT (18:42)
[2020-04-13] MEDS: trazodone 100 mg Tablet PO (21:27)
[2020-04-13 21:32] LABS: Glucose Point of Care 164 mg/dL (70-110)
[2020-04-14] VITALS (8 sets, daily range): BP systolic 92–108; BP diastolic 56–68; PULSE 43–71; RESP 14–21; TEMP 36.5–37.1; O2SAT 1–94
[2020-04-14 06:17] LABS: Glucose Point of Care 129 mg/dL (70-110)
[2020-04-14] MEDS: albuterol 8 gm MDI 2 PUFF INHALATION ×2 (08:04→20:00)
[2020-04-14] MEDS: topiramate 100 mg Tablet 50 MG PO ×2 (08:27→17:44)
[2020-04-14] MEDS: gabapentin 300 mg Capsule 600 MG PO ×3 (08:27→20:33)
[2020-04-14] MEDS: venlafaxine ER (24HR) 150 mg Capsule PO (08:27)
[2020-04-14 11:46] LABS: Glucose Point of Care 92 mg/dL (70-110)
[2020-04-14] MEDS: sodium chloride 0.9% 500 ML IV (13:09)
[2020-04-14] MEDS: guaiFENesin 600 mg Tablet PO (13:09)
[2020-04-14] MEDS: phenol oral Spray 177 mL 3 SPRAY MUCOUS MEM (13:09)
--- NOTE | 2020-04-14 15:13 | PC.RESP ---
SMOKING CESSATION AND PULMONARY REHAB INFORMATION SENT TO PATIENT.
--- NOTE | 2020-04-14 16:32 | PM.PN ---
Subjective Subjective: Interval history: Patient awake in bed at time of exam. Reported feeling lightheaded and dizzy this afternoon. Reported continued cough, no sputum production. Vitals/I&O/Wt Last Vital Signs Temp 98.3 F 04/14/20 12:00 Pulse 51 L 04/14/20 12:00 Resp 21 H 04/14/20 12:00 BP 92/56 04/14/20 12:00 Pulse Ox 1 L 04/14/20 12:00 04/14/20 04/14/20 04/14/20 06:59 14:59 22:59 Intake Total 600 / 600 Output Total 800 / 1625 Balance -800 / -865 600 / 600 Weight last 48 hrs Weight 77.428 kg Weight 77.791 kg Physical Exam Const: COMMON NORMALS: patient oriented x3 and alert GENERAL APPEARANCE: cooperative ORIENTATION/CONSCIOUSNESS: Yes awake, Yes oriented to person, Yes oriented to place and Yes oriented to time HENMT: COMMON NORMALS: normocephalic and atraumatic HEAD & SCALP: normocephalic and atraumatic Eye: COMMON NORMALS: Equal, round and reactive pupils present PUPIL: Yes Equal, round and reactive pupils present Neck/C-Spine: COMMON NORMALS: supple GENERAL: Yes normal visual inspection Resp: EFFORT & INSPECTION: Yes tachypneic and Yes uses accessory muscles AUSCULTATION: no rhonchi OTHER: Diminished breath sounds bilaterally, no appreciable wheezing today Cardio: COMMON NORMALS: regular rate, regular rhythm and No murmurs present (Cardio) RATE: regular rate RHYTHM: regular rhythm GI: COMMON NORMALS: Soft to palpation and non-tender INSPECTION: No abdominal distension AUSCULTATION: Yes normoactive bowel sounds PALPATION: Yes Soft to palpation Extremity: COMMON NORMALS: no clubbing, cyanosis or edema and no calf tenderness Neuro: COMMON NORMALS: patient oriented x3, CN's II-XII intact bilaterally, moves all extremities and no focal motor deficits SENSORIUM/ORIENTATION: Yes alert, Yes oriented to person, Yes oriented to place and Yes oriented to time SPEECH: speech normal Psych: COMMON NORMALS: mental status grossly normal and cooperative Skin: COMMON NORMALS: no rashes or lesions noted GENERAL SKIN EXAM: no rashes or lesions noted Data : 04/13/20 05:53 04/13/20 05:53 A&P Assessment and plan (1) Pneumonia due to COVID-19 virus: Isolation precautions with droplet and contact precautions On COVID-19 precautions patient tested positive prior to admission Continue with respiratory therapy to assess and treat, oxygen per protocol Continue on Remdesivir and dexamethasone. Currently still requiring some oxygen, will continue to wean as tolerated Status: Acute (2) Diabetes: Low-dose sliding scale insulin as needed, hold home metformin Status: Acute (3) COPD (chronic obstructive pulmonary disease): With COVID-19 viral pneumonia as noted above, plan as above Goal oxygen saturation of 90 to 92% due to underlying COPD Status: Acute (4) Hypertension: Patient has been off of her lisinopril with decreased oral intake over the past week, hold atenolol along with chlorthalidone, continue holding lisinopril Status: Acute Additional A&P Information Thrombocytopenia: Continue to monitor closely, no evidence of any active bleeding Hypotension: Given bolus of IV fluids today, continue close monitoring. 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
[2020-04-14] MEDS: dexamethasone 4 mg/mL INJ 6 MG IVP (17:43)
[2020-04-14] MEDS: enoxaparin 40 mg/0.4 mL Syringe SUBCUT (17:44)
[2020-04-14 18:06] LABS: Glucose Point of Care 90 mg/dL (70-110)
[2020-04-14] MEDS: trazodone 100 mg Tablet PO (20:33)
[2020-04-14 20:45] LABS: Glucose Point of Care 149 mg/dL (70-110)
[2020-04-15] VITALS (8 sets, daily range): BP systolic 88–114; BP diastolic 57–67; PULSE 44–68; RESP 16–18; TEMP 36.3–36.8; O2SAT 85–98
[2020-04-15 06:15] LABS: Basophils % 0.2 %; Hemoglobin 13.8 g/dL (11.5-15.3); Lymphocytes # 1.9 10^3/uL (0.8-4.8); Lymphocytes % 28.9 %; Mean Corpuscular HGB Conc 32.1 g/dL (30.0-36.0); Mean Corpuscular Hemoglobin 30.4 pg (28.0-34.0); Mean Corpuscular Volume 94.7 fL (81-99); Mean Platelet Volume 11.9 fL (7.4-10.4); Monocytes # 0.4 10^3/uL (0.2-0.9); Monocytes % 6.3 %; Neutrophils # 4.18 10^3/uL (1.8-7.7); Neutrophils % 63.8 %; Nucleated Red Blood Cells % 0 %; Platelet Count 129 10^3/cmm (130-400); Red Blood Count 4.54 10^6/uL (4.1-5.3); Red Cell Distribution Width 12.9 % (12.1-15.1); White Blood Count 6.5 10^3/uL (4.0-10.0)
[2020-04-15 06:19] LABS: Glucose Point of Care 134 mg/dL (70-110)
[2020-04-15 06:48] LABS: Blood Urea Nitrogen 17 mg/dL (8-23); Calcium 9.3 mg/dL (8.5-10.5); Carbon Dioxide 21 mmol/L (22-29); Chloride 107 mmol/L (98-107); Glucose 119 mg/dL (65-115); Osmolality Calculated 297 mOsm/kg (285-295); Sodium 142 mmol/L (136-145)
[2020-04-15 06:51] LABS: Anion Gap 17.8 (5-19); Potassium 3.8 mmol/L (3.5-5.1)
[2020-04-15] MEDS: venlafaxine ER (24HR) 150 mg Capsule PO (08:29)
[2020-04-15] MEDS: topiramate 100 mg Tablet 50 MG PO (08:30)
[2020-04-15] MEDS: gabapentin 300 mg Capsule 600 MG PO ×2 (08:31→15:39)
--- NOTE | 2020-04-15 09:30 | PM.DCS ---
Discharge Providers Date of Admission: 04/11/20 17:40 Date of Discharge: April 15, 2020 Attending Provider at Admission: Deirdre Rodgers DO Attending Provider at Discharge: Deirdre Rodgers DO Primary Care Provider: Alli Barbour MD Diagnoses at Discharge Discharge Diagnosis (1) Pneumonia due to COVID-19 virus: Status: Acute (2) Diabetes: Status: Acute (3) COPD (chronic obstructive pulmonary disease): Status: Acute (4) Hypertension: Status: Acute Reason for Visit Reason for Visit: covid symptoms Hospital Course Hospital Course: Patient was seen and evaluated in the emergency department noted to have concern for COVID-19 viral pneumonia. She was noted to have hypoxia and admitted to the hospital for further evaluation and treatment. Patient was educated on medications on emergency use authorization and after discussion with her on risk and benefits she agreed to treatment with dexamethasone and remdesivir. She was placed on 4 L of oxygen by nasal cannula and this was gradually weaned down over the course of her hospital stay. Patient was started on IV fluids and her home antihypertensives were held. She was noted to have some bradycardia but she remained asymptomatic, blood pressures continued to show improvement. Oxygen levels also continued to show improvement and she had improvement and developed sense of taste and smell. Patient completed course of remdesivir. And was also on dexamethasone during hospital stay. Discussed with her on date of discharge plan for discharge to home with [facility] for 2 weeks, discussed with her risk and benefits of medications including risk of bleeding, she verbalized understanding and agreed with plan. Patient reported that she was feeling much better and felt comfortable with discharge to home. Home oxygen evaluation was performed and patient qualified for 2L by NE with activity. Physical Exam Const: COMMON NORMALS: patient oriented x3 and alert GENERAL APPEARANCE: cooperative ORIENTATION/CONSCIOUSNESS: Yes awake, Yes oriented to person, Yes oriented to place and Yes oriented to time HENMT: COMMON NORMALS: normocephalic and atraumatic HEAD & SCALP: normocephalic and atraumatic Eye: COMMON NORMALS: Equal, round and reactive pupils present PUPIL: Yes Equal, round and reactive pupils present Neck/C-Spine: COMMON NORMALS: supple GENERAL: Yes normal visual inspection Resp: COMMON NORMALS: normal respiratory effort EFFORT & INSPECTION: Yes able to speak in complete sentences, Yes symmetric chest movement and Yes uses accessory muscles AUSCULTATION: no rhonchi OTHER: Diminished breath sounds bilaterally, no appreciable wheezing Cardio: COMMON NORMALS: regular rate, regular rhythm and No murmurs present (Cardio) RATE: regular rate RHYTHM: regular rhythm GI: COMMON NORMALS: Soft to palpation and non-tender INSPECTION: No abdominal distension AUSCULTATION: Yes normoactive bowel sounds PALPATION: Yes Soft to palpation Extremity: COMMON NORMALS: no clubbing, cyanosis or edema and no calf tenderness Neuro: COMMON NORMALS: patient oriented x3, CN's II-XII intact bilaterally, moves all extremities and no focal motor deficits SENSORIUM/ORIENTATION: Yes alert, Yes oriented to person, Yes oriented to place and Yes oriented to time SPEECH: speech normal Psych: COMMON NORMALS: mental status grossly normal and cooperative Skin: COMMON NORMALS: no rashes or lesions noted GENERAL SKIN EXAM: no rashes or lesions noted Discharge Data Data Completed and Pending: Completed Studies During Hospitalization Category Date Time Status XR chest 1V rachel ble [id number] Stat Exams 04/11/20 10:09 Completed Pending at discharge Category Date Time Status Sputum Culture an d Gram Stain Stat Lab 04/14/20 20:43 Received Labs from last 24 hours 04/15/20 04/15/20 04/15/20 06:11 05:40 05:40 WBC 6.5 RBC 4.54 Hgb 13.8 Hct 43.0 MCV 94.7 MCH 30.4 MCHC 32.1 RDW 12.9 Plt Count 129 L MPV 11.9 H Neut % (Auto) 63.8 Lymph % (Auto) 28.9 [place] % (Auto) 6.3 Eos % (Auto) 0.0 Baso % (Auto) 0.2 Neut # (Auto) 4.18 Lymph # (Auto) 1.9 [place] # (Auto) 0.4 Eos # (Auto) 0.0 Baso # (Auto) 0.0 Nucleated RBC % (a uto) 0 Nucleated RBCs # 0.0 Sodium 142 Potassium 3.8 Chloride 107 Carbon Dioxide 21 L Anion Gap 17.8 BUN 17 Creatinine 0.6 GFR Calculation 102.0 Glucose 119 H POC Glucose 134 Calculated Osmolal ity 297 H Calcium 9.3 04/14/20 04/14/20 04/14/20 20:36 17:49 11:43 WBC RBC Hgb Hct MCV MCH MCHC RDW Plt Count MPV Neut % (Auto) Lymph % (Auto) [place] % (Auto) Eos % (Auto) Baso % (Auto) Neut # (Auto) Lymph # (Auto) [place] # (Auto) Eos # (Auto) Baso # (Auto) Nucleated RBC % (a uto) Nucleated RBCs # Sodium Potassium Chloride Carbon Dioxide Anion Gap BUN Creatinine GFR Calculation Glucose POC Glucose 149 90 92 Calculated Osmolal ity Calcium Vitals: Last Vital Signs Temp 97.4 F L 04/15/20 07:50 Pulse 54 L 04/15/20 07:50 Resp 18 04/15/20 07:50 BP 114/64 04/15/20 07:50 Pulse Ox 94 04/15/20 07:50 Discharge Plan Discharge Patient Disposition: Home Condition: Stable Prescriptions: New dexamethasone 6 mg tablet 6 mg PO DAILY 2 Days Qty: 2 RF: 0 Eliquis 5 mg tablet 5 mg PO BID 14 Days Qty: 28 RF: 0 Continued albuterol sulfate 2.5 mg /3 mL (0.083 %) solution for nebulization 2.5 mg INHALATION Q4H PRN (Reason: shortness of breath or wheezing) Qty: 90 RF: 0 gabapentin 600 mg Tablet 600 mg PO TID RF: 0 metformin 500 mg Tablet 500 mg PO BID RF: 0 sumatriptan succinate 25 mg Tablet 25 mg PO Q2H PRN (Reason: Migraine Headache) RF: 0 lorazepam 1 mg Tablet 1 mg PO DAILY PRN (Reason: Anxiety) RF: 0 cyclobenzaprine 10 mg tablet 10 mg PO Q8H PRN (Reason: muscle spasm) Qty: 20 RF: 0 atorvastatin 80 mg tablet 80 mg PO BEDTIME RF: 0 venlafaxine 150 mg capsule,extended release 24hr 150 mg PO DAILY RF: 0 acetaminophen 500 mg Tablet 500 - 1,000 mg PO BID PRN (Reason: Fever) RF: 0 trazodone 100 mg tablet 100 mg PO BEDTIME RF: 0 albuterol sulfate 90 mcg/actuation Hfa Aerosol Inhaler 1 inh INHALATION QID PRN (Reason: Shortness Of Breath) RF: 0 topiramate 50 mg tablet 50 mg PO BID RF: 0 Mucinex 600 mg Tablet Extended Release 12hr 600 mg PO Q12H PRN (Reason: Congestion) RF: 0 Held atenolol-chlorthalidone 50-25 mg tablet 1 tab PO DAILY RF: 0 Hold Instructions: Resume on 04/22/20. lisinopril 40 mg tablet 40 mg PO DAILY RF: 0 Hold Instructions: Resume on 04/22/20. Discontinued ibuprofen 800 mg Tablet 800 mg PO TID PRN (Reason: Fever) RF: 0 Discharge Orders: Discharge Order (Routine); Ordered 04/15/20 Ordered By: Deirdre Rodgers Other Ambulatory Orders: DME: Oxygen (Order) Location: None Selected Ordered By: Deirdre Rodgers Referrals: [facility] [Outside] Alli Barbour MD [Primary Care Provider] - 04/16/20 11:00 am (appt on 04-16 at 1100. Jason Fajardo asks that you pull around to the backside of the building to be seen in your vehicle for COVID follow up ) Discharge Diet: Advance as tolerated Discharge Activity: Increase activity as tolerated and Oxygen as instructed Patient Instructions: COPD, Corticosteroids (By mouth), Apixaban (By mouth), COPD Stoplight, Pneumonia - Viral, Using Oxygen at Home Activity Restrictions/Additional Instructions: Follow-up with primary care provider in 24 to 48 hours with telehealth visit Continue with 2 L of oxygen as prescribed with activity Discharge to home on steroids, dexamethasone, 6 mg for an additional 2 days Completed course of Remdesivir Continue to encourage tobacco cessation Continue with inhalers as previously prescribed Continue to hold off on chlorthalidone, atenolol and lisinopril until follow-up with primary care provider and instructed to restart Discharge to home on Eliquis, blood thinner, for an additional 2 weeks. This was discussed on date of discharge to help minimize the risk of any DVT or PE during this acute period. Call your physician or present to the ED for any acute illness or concern Discharge Attestations Time Spent in Discharge Care*: greater than 30 min Specific Discharge Activities: Specific discharge activities: educating patient, educating and/or supporting family/caregiver, discussing with correctional case records supervisor/social workers/dc planners and documenting/other paperwork Time Spent in Smoking Cessation: Time spent discussing smoking cessation with patient: more than 10 minutes Details of Smoking Cessation Education: Discussion of COPD and need for tobacco cessation Quality Metrics Clinical Quality Measures During this hospital stay, did patient experience: None Coding Level of Care Code Acute Assistant Banquet Manager for Chg Fwd Exam Comprehensive 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
[2020-04-15 10:45] LABS: Glucose Point of Care 133 mg/dL (70-110)
== END 2020-04-15 17:43 | disposition home or self-care (01) | DRG 177 ==
LOC: ER 17:05 → MEDSURG 18:29
PROVIDERS: Admitting Provider Family Medicine; Emergency Provider Family Medicine; PCP Family Medicine; Visit Provider Family Medicine
DX: U07.1 COVID-19 (principal); J12.89 Other viral pneumonia; I10 Essential (primary) hypertension; J44.9 Chronic obstructive pulmonary disease, unspecified; F17.210 Nicotine dependence, cigarettes, uncomplicated; E11.9 Type 2 diabetes mellitus without complications; Z66 Do not resuscitate; D69.6 Thrombocytopenia, unspecified; I95.9 Hypotension, unspecified; Z79.51 Long term (current) use of inhaled steroids; Z79.84 Long term (current) use of oral hypoglycemic drugs
CPT/HCPCS: 12345; 36415; 36416; 36600; 71045; 80048; 80053; 82550; 82728; 82803; 82962; 83605; 83615; 83735; 84145; 84443; 85025; 85378; 85384; 85610; 85730; 86140; 87070; 87205; 87426; 94640; 94664; 96372; 96375; 99284; J1100; J1650; J1815; J3535; J7030; J7040; Q0162

== ENCOUNTER 2020-05-06 13:58 | Outpatient (CLI) | payer OTHER, SELFPAY | END 2020-05-06 13:59 | disposition home or self-care (01) | LOC: SPT 13:58 | PROVIDERS: PCP Family Medicine; Visit Provider Podiatrist Foot & Ankle Surgery | DX: Z46.89 Encounter for fitting and adjustment of other specified devices (principal); M19.072 Primary osteoarthritis, left ankle and foot | CPT/HCPCS: L3030 ==

== ENCOUNTER 2020-05-26 11:34 | Emergency (ER) | payer OTHER, SELFPAY ==
[2020-05-26] VITALS (8 sets, daily range): BP systolic 162–180; BP diastolic 116–117; PULSE 88–114; RESP 16–22; TEMP 37.5; O2SAT 87–95; BMI 24.2
--- NOTE | 2020-05-26 11:45 | XR_ITS ---
WS: [id number] XR chest 1V portable [id number] REASON FOR EXAM: SOB FINDINGS: The chest is unchanged compared to previous examination of 04/11/2020. The heart and mediastinum are w ithin normal limits for age. No active pulmonary parenchymal or pleural disease is noted. Mild changes of degenerative spondylosis in the mid and lower thoracic spine. XR/XR chest 1V portable [id number] IMPRESSION: No acute chest abnormality.
--- NOTE | 2020-05-26 12:22 | ED_ITS ---
HPI - SOB/Dyspnea General: Chief Complaint: Shortness of Breath/Dyspnea Stated Complaint: SOB/Unsteady O2 Time Seen by Provider: 05/26/20 11:57 Source: patient Mode of arrival: ambulatory Limitations: no limitations History of Present Illness: HPI Narrative: 59-year-old female who has a history of COPD and has recently gotten over Covid she tested positive early April. She states that over the last 4 to 5 days she started having an dry cough with increased wheezing and shortness of breath. Patient's pulse ox currently is 92% on room air. She denies any fever. Denies any worsening or improving factors. Associated symptoms: Deny abdominal pain, chest pain, fever(s), nausea or vomiting Review of Systems Const: Denies: fever(s), chills, body aches or change in appetite Eyes: Denies: blurry vision or eye discomfort ENMT: Denies: throat pain or dental pain Card: Denies: chest pain Resp: Reports: dyspnea and non-productive cough GI: Denies: abdominal pain, nausea, vomiting or diarrhea : Denies: dysuria Musc: Denies: neck pain or back pain Skin/Breast: Denies: rash Neuro: Denies: headache(s) Psych: Denies: depression Dayne/Lymph: Denies: easy bruising All/Imm: Denies: urticaria PFSH ED PFSH: Medical History COPD (chronic obstructive pulmonary disease) Diabetes Hypertension Pneumonia due to COVID-19 virus Tumor Surgical History H/O: hysterectomy History of appendectomy Hx of tonsillectomy Social History Smoking and tobacco status: current every day smoker Physical Exam Const: COMMON NORMALS: no acute distress, patient oriented x3 and healthy appearing HENMT: COMMON NORMALS: normocephalic and atraumatic HEAD & SCALP: normocephalic and atraumatic Eye: COMMON NORMALS: Equal, round and reactive pupils present and EOMs intact bilaterally PUPIL: Yes Equal, round and reactive pupils present Neck/C-Spine: COMMON NORMALS: full ROM and supple Chest: COMMONS NORMALS: normal inspection of the chest and normal palpation of entire chest wall Resp: COMMON NORMALS: normal respiratory effort, No retractions and No use of accessory muscles AUSCULTATION: wheezes Cardio: COMMON NORMALS: regular rate, regular rhythm and No murmurs present (Cardio) RATE: regular rate RHYTHM: regular rhythm GI: COMMON NORMALS: Normal to inspection, nondistended, normoactive bowel sounds present, Soft to palpation, non-tender and no masses PALPATION: Yes Soft to palpation Extremity: COMMON NORMALS: normal to inspection and full ROM Neuro: COMMON NORMALS: patient oriented x3, moves all extremities and no focal motor deficits Psych: COMMON NORMALS: mental status grossly normal, Normal thought process present and cooperative THOUGHT PROCESS: Normal thought process present Skin: COMMON NORMALS: no rashes or lesions noted and no wounds GENERAL SKIN EXAM: no rashes or lesions noted Course Vital Signs: Vital signs: Vital Signs Temperature 99.5 F 05/26/20 11:45 Pulse Rate 88 05/26/20 13:12 Respiratory Rate 16 05/26/20 13:10 Blood Pressure 180/117 05/26/20 12:40 Pulse Oximetry 87 L 05/26/20 13:39 MDM - SOB/Dyspnea MDM Narrative: Medical decision making narrative: Simran presents here with dyspnea likely COPD exacerbation with post Covid inflammation. She is well- appearing here and blood work and x-ray are normal. Her D-dimer is negative no signs of pulmonary embolism. She is slightly hypoxic we will set her up for home oxygen. We will start her on steroids. She is to follow-up with her PCP in 3 to 5 days return to ER if worsening. She understands agrees to plan. Lab Data: Labs: Lab Results 05/26/20 05/26/20 05/26/20 Range/Units 12:23 12:23 12:23 WBC 10.0 (4.0-10.0) 10^3/ uL RBC 4.72 (4.1-5.3) 10^6/u L Hgb 14.0 (11.5-15.3) g/dL Hct 43.0 (37.0-47.0) % MCV 91.1 (81-99) fL MCH 29.7 (28.0-34.0) pg MCHC 32.6 (30.0-36.0) g/dL RDW 13.4 (12.1-15.1) % Plt Count 195 (130-400) 10^3/c mm MPV 10.1 (7.4-10.4) fL Neut % (Auto) 70.8 % Lymph % (Auto) 14.6 % [place] % (Auto) 9.2 % Eos % (Auto) 4.5 % Baso % (Auto) 0.6 % Neut # (Auto) 7.05 (1.8-7.7) 10^3/u L Lymph # (Auto) 1.5 (0.8-4.8) 10^3/u L [place] # (Auto) 0.9 (0.2-0.9) 10^3/u L Eos # (Auto) 0.5 (0.0-0.8) 10^3/u L Baso # (Auto) 0.1 (0.0-0.1) 10^3/u L Nucleated RBC % (a uto) 0 % Nucleated RBCs # 0.0 /100WBC D-Dimer 0.30 (0-0.59) ug/mIFE U Sodium 142 (136-145) mmol/L Potassium 4.1 (3.5-5.1) mmol/L Chloride 106 (98-107) mmol/L Carbon Dioxide 24 (22-29) mmol/L Anion Gap 16.1 (5-19) BUN 11 (8-23) mg/dL Creatinine 0.5 (0.5-0.9) mg/dL GFR Calculation 125.9 (90-130) mL/min Glucose 111 (65-115) mg/dL Calculated Osmolal ity 294 (285-295) mOsm/k g Calcium 9.3 (8.5-10.5) mg/dL Total Bilirubin 0.7 (0.15-1.2) mg/dL AST 19 (0-32) U/L ALT 23 (0-33) U/L Alkaline Phosphata se 97 (35-105) IU/L NT-Pro-B Natriuret Pep 173 H (0-125) pg/mL Total Protein 7.4 (6.6-8.7) g/dL Albumin 4.6 (3.5-5.2) g/dL Globulin 2.8 (1.3-4.6) g/dL Imaging Data^: CXR: Attestation: I personally reviewed and interpreted this imaging study as follows: Radiologist's impression: [address] [address] XRay Report Signed Patient: Mary Ann Floyd Unit #: [id number] : 1960 Age/Sex: 59 / F ADM Date: 05/26/20 Loc: ER Room/Bed: Attending Dr: Ordering Provider/Ordering MD: Abdoul Munson MD Date of Service: 05/26/20 Procedure(s): XR chest 1V portable [id number] Accession Number(s): [id number] Report Number: [id number] WS: [id number] XR chest 1V portable [id number] REASON FOR EXAM: SOB FINDINGS: The chest is unchanged compared to previous examination of 04/11/2020. The heart and mediastinum are within normal limits for age. No active pulmonary parenchymal or pleural disease is noted. Mild changes of degenerative spondylosis in the mid and lower thoracic spine. XR/XR chest 1V portable [id number] IMPRESSION: No acute chest abnormality. Discharge Plan Discharge Patient Disposition: Home Clinical Impression: COPD (chronic obstructive pulmonary disease) Qualifiers: COPD type: COPD with acute exacerbation Qualified Code(s): J44.1 - Chronic obstructive pulmonary disease with (acute) exacerbation Condition: Stable Prescriptions: New Keflex 500 mg capsule 500 mg PO Q6H 7 Days Qty: 28 RF: 0 prednisone 50 mg tablet 50 mg PO DAILY Qty: 5 RF: 0 No Action (DME) Sole Supports See Rx Instructions .ROUTE .MEDSUPPLY Qty: 1 RF: 0 albuterol sulfate 2.5 mg /3 mL (0.083 %) solution for nebulization 2.5 mg INHALATION Q4H PRN (Reason: shortness of breath or wheezing) Qty: 90 RF: 0 gabapentin 600 mg Tablet 600 mg PO TID RF: 0 metformin 500 mg Tablet 500 mg PO BID RF: 0 sumatriptan succinate 25 mg Tablet 25 mg PO Q2H PRN (Reason: Migraine Headache) RF: 0 lorazepam 1 mg Tablet 1 mg PO DAILY PRN (Reason: Anxiety) RF: 0 cyclobenzaprine 10 mg tablet 10 mg PO Q8H PRN (Reason: muscle spasm) Qty: 20 RF: 0 atorvastatin 80 mg tablet 80 mg PO BEDTIME RF: 0 atenolol-chlorthalidone 50-25 mg tablet 1 tab PO DAILY RF: 0 Hold Instructions: Resume on 04/22/20. venlafaxine 150 mg capsule,extended release 24hr 150 mg PO DAILY RF: 0 acetaminophen 500 mg Tablet 500 - 1,000 mg PO BID PRN (Reason: Fever) RF: 0 trazodone 100 mg tablet 100 mg PO BEDTIME RF: 0 albuterol sulfate 90 mcg/actuation Hfa Aerosol Inhaler 1 inh INHALATION QID PRN (Reason: Shortness Of Breath) RF: 0 lisinopril 40 mg tablet 40 mg PO DAILY RF: 0 Hold Instructions: Resume on 04/22/20. topiramate 50 mg tablet 50 mg PO BID RF: 0 Mucinex 600 mg Tablet Extended Release 12hr 600 mg PO Q12H PRN (Reason: Congestion) RF: 0 Discharge Orders: Discharge Order (Routine); Ordered 05/26/20 Ordered By: Abdoul Munson Other Ambulatory Orders: DME: Oxygen (Order) Location: None Selected Ordered By: Abdoul Munson Referrals: Alli Barbour MD [Primary Care Provider] - 1-3 days Discharge Diet: Advance as tolerated Discharge Activity: Resume usual activity Coding Level of Care Code ED Automotive Electrician Helper for Chg Fwd Exam Comprehensive
[2020-05-26 12:34] LABS: Basophils # 0.1 10^3/uL (0.0-0.1); Basophils % 0.6 %; Eosinophils # 0.5 10^3/uL (0.0-0.8); Eosinophils % 4.5 %; Lymphocytes # 1.5 10^3/uL (0.8-4.8); Lymphocytes % 14.6 %; Mean Corpuscular HGB Conc 32.6 g/dL (30.0-36.0); Mean Corpuscular Hemoglobin 29.7 pg (28.0-34.0); Mean Corpuscular Volume 91.1 fL (81-99); Mean Platelet Volume 10.1 fL (7.4-10.4); Monocytes # 0.9 10^3/uL (0.2-0.9); Monocytes % 9.2 %; Neutrophils # 7.05 10^3/uL (1.8-7.7); Neutrophils % 70.8 %; Nucleated Red Blood Cells % 0 %; Platelet Count 195 10^3/cmm (130-400); Red Blood Count 4.72 10^6/uL (4.1-5.3); Red Cell Distribution Width 13.4 % (12.1-15.1)
[2020-05-26 13:01] LABS: Alanine Aminotransferase 23 U/L (0-33); Albumin Level 4.6 g/dL (3.5-5.2); Alkaline Phosphatase 97 IU/L (35-105); Anion Gap 16.1 (5-19); Aspartate Amino Transferase 19 U/L (0-32); Blood Urea Nitrogen 11 mg/dL (8-23); Calcium 9.3 mg/dL (8.5-10.5); Carbon Dioxide 24 mmol/L (22-29); Chloride 106 mmol/L (98-107); Creatinine Clr Calc Pharmacy 118.6139; Globulin 2.8 g/dL (1.3-4.6); Glomerular Filtration Rate 125.9 mL/min (90-130); Glucose 111 mg/dL (65-115); NT Pro B Type Natriuretic Pept 173 pg/mL (0-125); Osmolality Calculated 294 mOsm/kg (285-295); Potassium 4.1 mmol/L (3.5-5.1); Sodium 142 mmol/L (136-145); Total Bilirubin 0.7 mg/dL (0.15-1.2); Total Protein 7.4 g/dL (6.6-8.7)
[2020-05-26] MEDS: albuterol 8 gm MDI 2 PUFF INHALATION (13:09)
== END 2020-05-26 17:27 | disposition home or self-care (01) ==
PROVIDERS: Emergency Provider Emergency Medicine; PCP Family Medicine
DX: J44.1 Chronic obstructive pulmonary disease with (acute) exacerbation (principal); J44.9 Chronic obstructive pulmonary disease, unspecified; E11.9 Type 2 diabetes mellitus without complications; Z79.84 Long term (current) use of oral hypoglycemic drugs; I10 Essential (primary) hypertension; F17.210 Nicotine dependence, cigarettes, uncomplicated
CPT/HCPCS: 12345; 71045; 80053; 83880; 85025; 85378; 94640; 96374; 99283; J2930; J3535

== ENCOUNTER 2021-12-02 16:58 | Inpatient (IN) | payer OTHER, MEDICARE, SELFPAY ==
--- NOTE | 2021-12-02 17:00 | XRR_ITS ---
PROCEDURE INFORMATION: Exam: XR Chest Exam date and time: 12/02/2021 6:36 PM Age: 61 years old Clinical indication: Chest wall pain; Additional info: Chest pain TECHNIQUE: Imaging protocol: XR of the chest. Views: 1 view. COMPARISON: CR XR chest 1V portable [id number] 05/26/2020 11:54 AM FINDINGS: Lungs: No consolidation. Pleural spaces: Unremarkable. No pleural effusion. No pneumothorax. Heart/Mediastinum: No cardiomegaly. Bones/joints: No acute findings. XR/XR chest 1V portable [id number] IMPRESSION: No acute findings.
--- NOTE | 2021-12-02 17:00 | ECG_ITS ---
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 Measurements Intervals [place] Rate: 59 P: 58 [place]: 151 QRS: 33 QRSD: 90 T: 65 QT: 427 QTc: 426 Interpretive Statements SINUS BRADYCARDIA No previous ECG available for comparison Electronically Signed On 12-02-2021 19:45:18 CDT by Seda Dia M.D. [email or web address]
[2021-12-02 17:12] VITALS: BP 185/125; PULSE 56; RESP 16; TEMP 36.9; O2SAT 98
--- NOTE | 2021-12-02 19:00 | ECG_ITS ---
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 Measurements Intervals [place] Rate: 55 P: 65 [place]: 136 QRS: 64 QRSD: 93 T: 74 QT: 439 QTc: 421 Interpretive Statements SINUS BRADYCARDIA NONSPECIFIC T-WAVE ABNORMALITY Compared to ECG 12/02/2021 17:11:43 T-wave abnormality now present Electronically Signed On 12-03-2021 9:34:19 CDT by Ad Dodson M.D. [id number]
[2021-12-02 19:43] LABS: Basophils # 0.1 10^3/uL (0.0-0.1); Basophils % 0.7 %; Eosinophils # 0.3 10^3/uL (0.0-0.8); Eosinophils % 2.8 %; Hematocrit 47.2 % (37.0-47.0); Hemoglobin 15.3 g/dL (11.5-15.3); Lymphocytes # 4.7 10^3/uL (0.8-4.8); Lymphocytes % 42.9 %; Mean Corpuscular HGB Conc 32.4 g/dL (30.0-36.0); Mean Corpuscular Hemoglobin 29.7 pg (28.0-34.0); Mean Corpuscular Volume 91.5 fl (81-99); Mean Platelet Volume 10.5 fL (7.4-10.4); Monocytes # 0.8 10^3/uL (0.2-0.9); Monocytes % 7.1 %; Neutrophils # 5.02 10^3/uL (1.8-7.7); Nucleated Red Blood Cells % 0 %; Platelet Count 253 10^3/cmm (130-400); Red Blood Count 5.16 10^6/uL (4.1-5.3); Red Cell Distribution Width 14.3 % (12.1-15.1); White Blood Count 10.9 10^3/uL (4.0-10.0)
--- NOTE | 2021-12-02 19:51 | ED_ITS ---
HPI - General Adult General: Chief complaint: General Medical Stated complaint: High bp, numbness in legs, heaviness in chest Time Seen by Provider: 12/02/21 19:46 History of Present Illness: Patient is a 61-year-old female with a history of hypertension, hyperlipidemia, COPD, former smoking diabetes who presents to the emergency room for concerns of chest pressure and elevated blood pressure x1 day. Patient noticed chest pressure initially earlier this morning that is worse with exertion. Patient says the chest pressure still present and currently 7 out of 10. Patient denies any nausea/vomiting, diaphoresis, radiation to the back or pleuritic pain. Patient denies any fever or chills, cough runny still sore throat. In addition, patient also noted that her blood pressure has been running high today. Patient tells me that all pressure has been reading in the systolics over 200s. Patient tells me that he she normally takes atenolol for blood pressure has not skipped a dose today. Patient also reports exertional dyspnea for the last 3 days. No other complaints at this time Onset: chest pressure x 1 day Duration: ongoing Location:home Severity:moderate Associated symptoms: Deny chest pain, dyspnea, nausea, rash, palpitations or vomiting Review of Systems Const: Denies: fever(s) or chills Eyes: Denies: change in vision ENMT: Denies: mouth pain Card: Denies: chest pain or palpitations Resp: Denies: dyspnea or non-productive cough GI: Denies: abdominal pain, nausea, vomiting or diarrhea : Denies: dysuria Musc: Denies: extremity pain Skin/Breast: Denies: rash or new lesions Neuro: Denies: weakness in extremities Psych: Reports: other (Normal mood) Dayne/Lymph: Denies: easy bruising PFSH ED PFSH: Medical History COPD (chronic obstructive pulmonary disease) Diabetes Hypertension Pneumonia due to COVID-19 virus Tumor Surgical History H/O: hysterectomy History of appendectomy Hx of tonsillectomy Social History Smoking and tobacco status: current every day smoker Physical Exam Const: COMMON NORMALS: alert HENMT: COMMON NORMALS: atraumatic HEAD & SCALP: atraumatic MOUTH: moist mucous membranes not abnormal Eye: COMMON NORMALS: EOMs intact bilaterally and conjunctivae normal CONJUNCTIVA: Yes conjunctivae normal Neck/C-Spine: COMMON NORMALS: full ROM and supple Resp: COMMON NORMALS: normal respiratory effort and clear to auscultation bilaterally AUSCULTATION: clear to auscultation bilaterally Cardio: COMMON NORMALS: regular rate RATE: regular rate GI: COMMON NORMALS: Soft to palpation and non-tender PALPATION: Yes Soft to palpation Extremity: COMMON NORMALS: full ROM Neuro: SENSORIUM/ORIENTATION: Yes alert MOTOR EXAM: No Abnormal motor strength present and Other motor observations present (no focal motor deficits) Psych: COMMON NORMALS: speech normal SPEECH: Yes normal speech MOOD & AFFECT: Yes euthymic mood Course Vital Signs: Vital signs: Vital Signs Temperature 98.4 F 12/02/21 17:12 Pulse Rate 54 L 12/02/21 21:15 Respiratory Rate 16 12/02/21 21:15 Blood Pressure 192/94 12/02/21 21:15 Pulse Oximetry 95 12/02/21 21:15 MDM - General Adult Medical Decision Making 61-year-old female with history hypertension diabetes, COPD presents emergency room with chest pressure x 1 day. 01/10 currently. Patient received aspirin/nitro/morphine with mild improvement chest pain-free EKG is nonischemic, does not show any signs of ST elevation. Troponin x2 with delta less than 5. Patient continues to have elevated blood pressure despite multiple medications. CTA negative for any PE or dissection. Given heart score 4 (age, story, risk factors) persistent chest pain, have offered admission at this time, patient tells me she would like to come into the hospital. Disposition: admission Lab Data : 12/02/21 19:35 12/02/21 19:35 Radiology Impressions Chest X-Ray 12/02/21 17:00 IMPRESSION: No acute findings. Laboratory Results WBC 10.9 10^3/uL (4.0-10.0) H 12/02/21 19:35 RBC 5.16 10^6/uL (4.1-5.3) 12/02/21 19:35 Hgb 15.3 g/dL (11.5-15.3) 12/02/21 19:35 Hct 47.2 % (37.0-47.0) H 12/02/21 19:35 MCV 91.5 fl (81-99) 12/02/21 19:35 MCH 29.7 pg (28.0-34.0) 12/02/21 19:35 MCHC 32.4 g/dL (30.0-36.0) 12/02/21 19:35 RDW 14.3 % (12.1-15.1) 12/02/21 19:35 Plt Count 253 10^3/cmm (130-400) 12/02/21 19:35 MPV 10.5 fL (7.4-10.4) H 12/02/21 19:35 Neut % (Auto) 46.0 % 12/02/21 19:35 Lymph % (Auto) 42.9 % 12/02/21 19:35 [place] % (Auto) 7.1 % 12/02/21 19:35 Eos % (Auto) 2.8 % 12/02/21 19:35 Baso % (Auto) 0.7 % 12/02/21 19:35 Neut # (Auto) 5.02 10^3/uL (1.8-7.7) 12/02/21 19:35 Lymph # (Auto) 4.7 10^3/uL (0.8-4.8) 12/02/21 19:35 [place] # (Auto) 0.8 10^3/uL (0.2-0.9) 12/02/21 19:35 Eos # (Auto) 0.3 10^3/uL (0.0-0.8) 12/02/21 19:35 Baso # (Auto) 0.1 10^3/uL (0.0-0.1) 12/02/21 19:35 Nucleated RBC % (auto) 0 % 12/02/21 19:35 Nucleated RBCs # 0.0 /100WBC 12/02/21 19:35 Sodium 140 mmol/L (136-145) 12/02/21 19:35 Potassium 4.2 mmol/L (3.5-5.1) 12/02/21 19:35 Chloride 105 mmol/L (98-107) 12/02/21 19:35 Carbon Dioxide 22 mmol/L (22-29) 12/02/21 19:35 Anion Gap 17.2 (5-19) 12/02/21 19:35 BUN 10 mg/dL (8-23) 12/02/21 19:35 Creatinine 0.6 mg/dL (0.5-0.9) 12/02/21 19:35 GFR Calculation 101.3 mL/min (90-130) 12/02/21 19:35 Glucose 97 mg/dL (65-115) 12/02/21 19:35 Calculated Osmolality 289 mOsm/kg (285-295) 12/02/21 19:35 Calcium 9.4 mg/dL (8.5-10.5) 12/02/21 19:35 Troponin T Baseline 6 ng/L (0-10) 12/02/21 19:35 Troponin T 120 Minute 6.53 ng/L (0-10) 12/02/21 20:37 Imaging Data Other Imaging: Radiologist's impression: [place] [address] XRay Report Signed Patient: Mar yAnn Floyd Unit #: [id number] : 1960 Age/Sex: 61 / F ADM Date: 12/02/21 Loc: ER Room/Bed: Attending Dr: Ordering Provider/Ordering MD: Taye Raza MD Date of Service: 12/02/21 Procedure(s): XR chest 1V portable [id number] Accession Number(s): [id number] Report Number: [id number] PROCEDURE INFORMATION: Exam: XR Chest Exam date and time: 12/02/2021 6:36 PM Age: 61 years old Clinical indication: Chest wall pain; Additional info: Chest pain TECHNIQUE: Imaging protocol: XR of the chest. Views: 1 view. COMPARISON: CR XR chest 1V portable [id number] 05/26/2020 11:54 AM FINDINGS: Lungs: No consolidation. Pleural spaces: Unremarkable. No pleural effusion. No pneumothorax. Heart/Mediastinum: No cardiomegaly. Bones/joints: No acute findings.? XR/XR chest 1V portable [id number] IMPRESSION: No acute findings. ? 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
--- NOTE | 2021-12-02 19:59 | ECG_ITS ---
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 Measurements Intervals [place] Rate: 51 P: 65 HI: 137 QRS: 49 QRSD: 90 T: 63 QT: 386 QTc: 358 Interpretive Statements SINUS BRADYCARDIA Compared to ECG 12/02/2021 20:01:40 No significant changes Electronically Signed On 12-04-2021 22:36:37 CDT by Franky Deleon M.D. [id number]
[2021-12-02 20:02] LABS: Troponin(5th) Baseline 6 ng/L (0-10)
[2021-12-02 20:03] LABS: Blood Urea Nitrogen 10 mg/dL (8-23); Calcium 9.4 mg/dL (8.5-10.5); Carbon Dioxide 22 mmol/L (22-29); Chloride 105 mmol/L (98-107); Glomerular Filtration Rate 101.3 mL/min (90-130); Glucose 97 mg/dL (65-115); Osmolality Calculated 289 mOsm/kg (285-295); Sodium 140 mmol/L (136-145)
[2021-12-02] MEDS: aspirin 325 mg Tablet PO (20:24)
[2021-12-02] MEDS: NIFEdipine ER (24 hr) 30 mg Tablet 60 MG PO (20:26)
[2021-12-02 20:28] VITALS: RESP 20
[2021-12-02] MEDS: morphine 4 mg/mL SDV 1 mL IVP (20:28)
[2021-12-02 20:30] VITALS: BP 235/110; PULSE 58; RESP 15; O2SAT 96
[2021-12-02 20:34] LABS: Anion Gap 17.2 (5-19); Potassium 4.2 mmol/L (3.5-5.1)
[2021-12-02 21:00] VITALS: BP 234/116; PULSE 52; RESP 21; O2SAT 95
[2021-12-02 21:15] VITALS: BP 192/94; PULSE 54; RESP 16; O2SAT 95
[2021-12-02 21:17] LABS: Troponin 5 2HR 6.53 ng/L (0-10)
--- NOTE | 2021-12-02 21:20 | CTR_ITS ---
PROCEDURE INFORMATION: Exam: CTA Chest With Contrast Exam date and time: 12/02/2021 10:02 PM Age: 61 years old Clinical indication: Pain; Patient HX: C/O chest pressure with hypertension. ; Additional info: Chest pain TECHNIQUE: Imaging protocol: Computed tomographic angiography of the chest with contrast. 3D rendering (Not supervised by radiologist): MIP and/or 3D reconstructed images were created by the technologist. Radiation optimization: All CT scans at this facility use at least one of these dose optimization techniques: automated exposure control; mA and/or kV adjustment per patient size (includes targeted exams where dose is matched to clinical indication); or iterative reconstruction. Contrast material: OMNI 350; Contrast volume: 50 ml; Contrast route: INTRAVENOUS (IV); COMPARISON: CT chest w con* [id number] 07/09/2019 11:22 AM RADIATION DOSE METRICS: Total DLP (mGy-cm): 508.5 FINDINGS: Pulmonary arteries: Normal. No pulmonary emboli. Aorta: Unremarkable. No aortic aneurysm. No aortic dissection. Lungs: There is probable atelectasis/scar in the lungs. No lung mass or significant consolidation. Pleural spaces: Unremarkable. No pneumothorax. No pleural effusion. Heart: Cardiomegaly is identified. Lymph nodes: Unremarkable. No enlarged lymph nodes. Bones/joints: Degenerative change is identified in the spine. There is no evidence for acute fracture or malalignment. Soft tissues: Unremarkable. CT/CT angio chest PE protcl [id number] IMPRESSION: There are no acute concerning abnormalities.
[2021-12-02] MEDS: iohexol 350 mg/mL 100 mL Btl IV (22:03)
--- NOTE | 2021-12-02 22:48 | P.HP_ITS ---
Providers/Chief Complaint Admitting Physician: Enmanuel Amaro MD Primary Care Provider: Alli Barbour MD Chief Complaint: High bp, numbness in legs, heaviness in chest History of Present Illness Mary Ann Donohue is a 61 year old female with a past medical history of hypertension, hyperlipidemia, COPD, type 2 diabetes mellitus, who presents [facility] due to elevated blood pressures and chest pain and paresthesias. Patient tells me that 2 years ago she had COVID, after she had COVID, she had low blood pressures so she was taken off a lot of her blood pressure medications, now slowly her blood pressures have been elevated so they have been slowly adding blood pressure medications. She tells me that her blood pressures have been quite high for the last few days, she is taking atenolol with chlorthalidone, she is taking lisinopril. She tells me that with her L her blood pressure she has been having paresthesias in bilateral upper extremities and in her feet for some period of time. No facial droop, no slurring of words, no focal weakness. But she is also been having severe substernal chest pain, like something squeezing on her chest, she describes it as a vice, nonradiating, no shortness of breath, no lightheadedness, no dizziness, she tells me the pain is becoming more severe, more persistent. She decided to come to the emergency room today, because of chest pain has been persisting since 11 AM, Review of Systems Const: Denies: fever(s) Eyes: Denies: change in vision Resp: Denies: dyspnea, productive cough, non-productive cough or wheezing GI: Denies: abdominal pain, nausea, vomiting or hematemesis : Denies: dysuria Musc: Denies: back pain Neuro: Denies: headache(s), dizziness or vertigo Endo: Denies: polyuria or polydipsia Medications/Allergies Home Medications Medication Instructions Recorded Confirmed Last Taken Type cyclobenzaprine 10 mg tablet 10 mg PO Q8H PRN #20 tab 10/16/19 04/11/20 Unknown Rx gabapentin 600 mg tablet 600 mg PO TID 10/16/19 04/11/20 Unknown History lorazepam 1 mg tablet 1 mg PO DAILY PRN 10/16/19 04/11/20 Unknown History metformin 500 mg tablet 500 mg PO BID 10/16/19 04/11/20 Unknown History sumatriptan succinate 25 mg tablet 25 mg PO Q2H PRN 10/16/19 04/11/20 Unknown History albuterol sulfate 2.5 mg (3 mL) INHALATION Q4H PRN 04/06/20 04/11/20 04/11/20 Rx #90 ml acetaminophen 500 mg tablet 500 - 1,000 mg PO BID PRN 04/11/20 04/11/20 04/10/20 History albuterol sulfate 90 mcg/actuation 1 inh INHALATION QID PRN 04/11/20 04/11/20 04/11/20 History aerosol inhaler atenolol 50 mg-chlorthalidone 25 1 tab PO DAILY 04/11/20 04/11/20 Unknown History mg tablet atorvastatin 80 mg tablet 80 mg PO BEDTIME 04/11/20 04/11/20 04/10/20 History guaifenesin 600 mg tablet, 600 mg PO Q12H PRN 04/11/20 04/11/20 04/11/20 History extended release 12 hr (Mucinex) lisinopril 40 mg tablet 40 mg PO DAILY 04/11/20 04/11/20 Unknown History topiramate 50 mg tablet 50 mg PO BID 04/11/20 04/11/20 Unknown History trazodone 100 mg tablet 100 mg PO BEDTIME 04/11/20 04/11/20 Unknown History venlafaxine 150 mg 150 mg PO DAILY 04/11/20 04/11/20 Unknown History capsule,extended release 24 hr Sole Supports #1 each 05/06/20 Unknown Rx prednisone 50 mg tablet 50 mg PO DAILY #5 tab 05/26/20 Unknown Rx Allergies Allergy/AdvReac Type Severity Reaction Status Date / Time No Known Allergies Allergy Verified 12/02/21 17:16 PFSH Acute PFSH: Medical History COPD (chronic obstructive pulmonary disease) Diabetes Hypertension Pneumonia due to COVID-19 virus Tumor Surgical History H/O: hysterectomy History of appendectomy Hx of tonsillectomy Social History Smoking and tobacco status: current every day smoker Vitals/I&O/Wt Last Vital Signs Temp 98.4 F 12/02/21 17:12 Pulse 54 L 12/02/21 21:15 Resp 16 12/02/21 21:15 BP 192/94 12/02/21 21:15 Pulse Ox 95 12/02/21 21:15 Weight last 48 hrs Weight 84.822 kg Physical Exam Const: COMMON NORMALS: no acute distress and patient oriented x3 HENMT: COMMON NORMALS: normocephalic HEAD & SCALP: normocephalic Eye: COMMON NORMALS: Equal, round and reactive pupils present and EOMs intact bilaterally Neck/C-Spine: COMMON NORMALS: no JVD Resp: COMMON NORMALS: normal respiratory effort, No retractions, No use of accessory muscles and clear to auscultation bilaterally AUSCULTATION: clear to auscultation bilaterally Cardio: COMMON NORMALS: no JVD, regular rate, regular rhythm, S1 normal heart sound present and S2 normal heart sound present RATE: regular rate RHYTHM: regular rhythm HEART SOUNDS: S1 normal heart sound present and S2 normal heart sound present GI: COMMON NORMALS: Normal to inspection, nondistended, normoactive bowel sounds present, Soft to palpation, non-tender, No hepatosplenomegaly present, no masses and no bruits PALPATION: Yes Soft to palpation and Yes No hepatosplenomegaly present Extremity: COMMON NORMALS: capillary refill normal, no clubbing, cyanosis or edema, no calf tenderness and no pedal edema Neuro: COMMON NORMALS: patient oriented x3, CN's II-XII intact bilaterally, moves all extremities and no focal motor deficits Psych: COMMON NORMALS: mental status grossly normal Data : 12/02/21 19:35 12/02/21 19:35 A&P Assessment and plan (1) Hypertensive emergency: Status: Acute (2) Chest pain: Status: Acute Plan Hypertensive emergency -Currently with chest pain, with complaints of paresthesias -We will order CT of the head -Given persistent chest pain, and blood pressures 190s over 110, will start nitroglycerin drip -Goal lower systolic less than 160, diastolic less than 100, decrease mean arterial pressure by 25 to 30% -Continue home medications -Patient is DNR/DNI -Lovenox for DVT prophylaxis Chest pain -Sounds cardiac in nature -Initial troponin within normal limits, no acute ST-T wave changes, EKG showing sinus bradycardia -Serial EKGs, serial troponins, monitor for chest pain -Nitro drip as above -Cardiac echo -Cardiac stress test tomorrow morning Type 2 diabetes mellitus, low-dose sliding scale Attestations Medical Necessity Statement*: Patient requires hospitalization, outpatient with observation, for hypertensive emergency Coding Level of Care Code 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
--- NOTE | 2021-12-02 23:00 | ECG_ITS ---
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 Measurements Intervals [place] Rate: 52 P: 58 MS: 141 QRS: 34 QRSD: 93 T: 61 QT: 399 QTc: 374 Interpretive Statements SINUS BRADYCARDIA POSSIBLE LEFT ATRIAL ENLARGEMENT [-0.1mV P-WAVE IN V1/V2] NONSPECIFIC T-WAVE ABNORMALITY Compared to ECG 12/02/2021 20:01:40 No significant changes Electronically Signed On 12-03-2021 9:34:46 CDT by Ad Dodson M.D. [id number]
[2021-12-03] VITALS (69 sets, daily range): BP systolic 81–182; BP diastolic 51–107; PULSE 49–84; RESP 10–26; TEMP 36.1–36.6; O2SAT 91–97; BMI 30.3
[2021-12-03 00:09] LABS: Troponin 5 2HR Delta 0.53 ABS# (0-10)
--- NOTE | 2021-12-03 00:17 | USCV_ITS ---
JaydeHannahMary Ann Age: 61 Gender: F : 1960 Exam Date: 12/03/2021 01:28 Ordering Phys: Enmanuel Amaro MD Technologist: DELROY [place] [facility] [place]: Chest Pain BP: 138 / 85 HR: 51 Rhythm: Sinus Technical Quality: Adequate MEASUREMENTS (Male / Female) Normal Values 2D ECHO LV Diastolic Diameter PLAX 3.5 cm 4.2 - 5.9 / 3.9 - 5.3 cm LV Systolic Diameter PLAX 1.7 cm IVS Diastolic Thickness 1.4 cm 0.6 - 1.0 / 0.6 - 0.9 cm IVS Systolic Thickness 1.9 cm LVPW Diastolic Thickness 1.6 cm 0.6 - 1.0 / 0.6 - 0.9 cm LVPW Systolic Thickness 2.2 cm LVOT Diameter 1.9 cm LV Ejection Fraction 2D Teich 84.1 % LV Ejection Fraction MOD 2C 49.0 % LV Ejection Fraction 2C AL 48.5 % LA Diameter 4.1 cm LA Width 3.4 cm LA Height 5.3 cm RA Width 3.2 cm RA Height 4.1 cm Aorta at Sinotubular Diameter 1.9 cm IVC Diameter 0.9 cm M-MODE Aortic Annulus Diameter 3.0 cm LA Ao Ratio MM 1.4 MV E Point Septal Separation 0.5 cm DOPPLER AV Peak Velocity 112.5 cm/s LVOT Peak Velocity 90.0 cm/s AV Area Cont Eq vti 3.3 cm squared AV Area Cont Eq pk 2.2 cm squared MV Peak Velocity 81.0 cm/s MV Area PHT 3.0 cm squared Mitral E to A Ratio 1.0 MV E' Velocity 43.0 cm/s Mitral E to MV E' Ratio 12.2 Mitral E to LV E' Lateral Ratio 11.5 Mitral E to LV E' Septal Ratio 13.0 TR Peak Velocity 250.5 cm/s TR Peak Gradient 25.1 mmHg TR Mean Velocity 193.9 cm/s TR Mean Gradient 16.5 mmHg TR Velocity Time Integral 93.4 cm Right Atrial Pressure 10.0 mmHg Pulmonary Artery Systolic Pressu 35.1 mmHg PV Peak Velocity 51.3 cm/s RV Acceleration Time 0.2 s RV Ejection Time 0.4 s RV AcT/ET 0.5 FINDINGS Left Ventricle Normal left ventricular size, systolic function and wall thickness, with no regional wall motion abnormalities. Normal left ventricular wall thickness. Normal diastolic filling pattern. Left ventricular ejection fraction is estimated at 60 %. Right Ventricle The right ventricle is normal in size and function. Right Atrium The right atrium is normal in size. Left Atrium The left atrium is normal in size. Mitral Valve Structurally normal mitral valve without significant stenosis or prolapse. There is no mitral regurgitation. Aortic Valve Structurally normal aortic valve without significant sclerosis or stenosis. There is no aortic regurgitation. Tricuspid Valve Structurally normal tricuspid valve without significant stenosis or regurgitation. Pulmonary artery systolic pressure is normal. Pulmonic Valve Structurally normal pulmonic valve without significant stenosis. There is no pulmonic regurgitation. Pericardium Normal pericardium without effusion. Aorta Normal ascending aorta dimension. IVC The inferior vena cava pulmonary and hepatic veins appear normal. CONCLUSIONS Normal transthoracic echocardiogram. Dr. Ad Dodson MD (Electronically Signed) Final Date: 03 December 2021 09:29 S
--- NOTE | 2021-12-03 00:17 | CTR_ITS ---
PROCEDURE INFORMATION: Exam: CT Head Without Contrast Exam date and time: 12/03/2021 12:52 AM Age: 61 years old Clinical indication: Weakness, extremity; Bilateral; Patient HX: C/O numbness/weakness to all four extremities. Patient currently on nitro drip with bradycardia. ; Additional info: Paresthesia TECHNIQUE: Imaging protocol: Computed tomography of the head without contrast. Radiation optimization: All CT scans at this facility use at least one of these dose optimization techniques: automated exposure control; mA and/or kV adjustment per patient size (includes targeted exams where dose is matched to clinical indication); or iterative reconstruction. COMPARISON: No relevant prior studies available. RADIATION DOSE METRICS: Total DLP (mGy-cm): 846.61 FINDINGS: Brain: Normal. No hemorrhage. Unremarkable white matter. No mass effect. Cerebral ventricles: No ventriculomegaly. Paranasal sinuses: Small left maxillary sinus mucous retention cyst or polyp. Mastoid air cells: Visualized mastoid air cells are well aerated. Bones/joints: Unremarkable. No acute fracture. Soft tissues: Unremarkable. CT/CT head wo con* [id number] IMPRESSION: Negative for acute intracranial abnormality.
[2021-12-03] MEDS: nitroglycerin drip 50 MG/250 ML PREMIX IV (00:36)
[2021-12-03 01:08] LABS: Amphetamines Screen Urine Negative (Negative); Barbiturates Screen Urine Negative (Negative); Benzodiazepines Screen Urine Negative (Negative); Cocaine Screen Urine Negative (Negative); Opiate Screen Urine Positive (Negative); PCP Screen Urine Negative (Negative); THC Screen Urine Negative (Negative)
[2021-12-03] MEDS: pantoprazole 40 mg SDV IVP ×2 (01:10→23:42)
[2021-12-03] MEDS: enoxaparin 40 mg/0.4 mL Syringe SUBCUT (01:18)
[2021-12-03 04:02] LABS: Basophils # 0.1 10^3/uL (0.0-0.1); Basophils % 0.7 %; Eosinophils # 0.4 10^3/uL (0.0-0.8); Eosinophils % 3.3 %; Hematocrit 48.1 % (37.0-47.0); Hemoglobin 15.7 g/dL (11.5-15.3); Lymphocytes # 5.8 10^3/uL (0.8-4.8); Lymphocytes % 45.2 %; Mean Corpuscular HGB Conc 32.6 g/dL (30.0-36.0); Mean Corpuscular Hemoglobin 29.7 pg (28.0-34.0); Mean Corpuscular Volume 90.9 fl (81-99); Mean Platelet Volume 10.5 fL (7.4-10.4); Monocytes # 0.8 10^3/uL (0.2-0.9); Monocytes % 6.2 %; Neutrophils # 5.68 10^3/uL (1.8-7.7); Neutrophils % 44.1 %; Nucleated Red Blood Cells % 0 %; Platelet Count 271 10^3/cmm (130-400); Red Blood Count 5.29 10^6/uL (4.1-5.3); Red Cell Distribution Width 13.4 % (12.1-15.1); White Blood Count 12.9 10^3/uL (4.0-10.0)
[2021-12-03 04:17] LABS: Estmated Average Glucose 117; Hemoglobin A1C 5.7 % (4.0-6.0)
[2021-12-03 04:40] LABS: Alanine Aminotransferase 29 U/L (0-33); Albumin Level 4.6 g/dL (3.5-5.2); Alkaline Phosphatase 96 IU/L (35-105); Anion Gap 16.6 (5-19); Aspartate Amino Transferase 23 U/L (0-32); Blood Urea Nitrogen 11 mg/dL (8-23); Calcium 9.6 mg/dL (8.5-10.5); Carbon Dioxide 24 mmol/L (22-29); Chloride 101 mmol/L (98-107); Chol HDL Ratio 5.23 mg/dL (0.0-4.40); Cholesterol 246 mg/dL (0-200); Globulin 3.1 g/dL (1.3-4.6); Glomerular Filtration Rate 84.8 mL/min (90-130); Glucose 121 mg/dL (65-115); HDL Cholesterol 47 mg/dL (60-100); LDL Cholesterol Calculated 137 mg/dL (50-129); LDL HDL Ratio 2.91 RATIO (0.00-3.22); Magnesium 2.6 mg/dL (1.7-2.3); NT Pro B Type Natriuretic Pept 517 pg/mL (0-125); Osmolality Calculated 287 mOsm/kg (285-295); Phosphorus 3.9 mg/dL (2.5-4.5); Potassium 3.6 mmol/L (3.5-5.1); Sodium 138 mmol/L (136-145); Thyroid Stimulating Hormone 3.95 uIU/mL (0.27-4.20); Total Bilirubin 0.5 mg/dL (0.15-1.2); Total Protein 7.7 g/dL (6.6-8.7); Triglycerides 310 mg/dL (0-150)
[2021-12-03] MEDS: morphine 4 mg/mL SDV 1 mL 2 MG IVP (05:33)
--- NOTE | 2021-12-03 05:57 | CTR_ITS ---
PROCEDURE INFORMATION: Exam: CT Head Without Contrast Exam date and time: 12/03/2021 6:09 AM Age: 61 years old Clinical indication: Weakness, facial; Additional info: Stroke. Left sided weakness and facial droop TECHNIQUE: Imaging protocol: Computed tomography of the head without contrast. Total images: 2 Radiation optimization: All CT scans at this facility use at least one of these dose optimization techniques: automated exposure control; mA and/or kV adjustment per patient size (includes targeted exams where dose is matched to clinical indication); or iterative reconstruction. Other technique: STROKE PROTOCOL was implemented. COMPARISON: CT head wo con* [id number] 12/03/2021 12:52 AM RADIATION DOSE METRICS: Total DLP (mGy-cm): 907.81 FINDINGS: Brain: Senescent calcifications in the basal ganglia. Cerebral ventricles: No ventriculomegaly. Paranasal sinuses: Visualized sinuses are unremarkable. No fluid levels. Mastoid air cells: Visualized mastoid air cells are well aerated. Bones/joints: Unremarkable. No acute fracture. Soft tissues: Unremarkable. CT/CT head wo con* [id number] IMPRESSION: No acute intracranial abnormality. ASSESSMENT: ASPECTS ([place] Stroke Program Early CT Score) is 10.
[2021-12-03 05:58] LABS: Glucose Point of Care 113 mg/dL (70-110)
--- NOTE | 2021-12-03 06:03 | PM.CCNAC ---
Critical Care Event Note At roughly 5:40 PM nurses noted that patient had left facial droop, slight slurring of her words, left-sided deficits, NIH stroke scale of 6, I was called for assessment, stroke code was called, upon my evaluation, patient was alert oriented x3, following all commands, present with left facial droop, pupils equal round reactive to light, she does have left upper extremity weakness 4 out of 5 compared to 5 out of 5 on the right, no trouble coordinating, slight slurring of her words, [id number] abnormal on the left, [id number] intact, her left lower extremity, left leg, drifts but does not hit bed, no sensation losses, her NIH stroke scale is 4, she has a history of complex migraines, her son is on the phone at the same time, he tells me that the last time this happened, roughly 2 weeks ago, she gets left-sided deficits with her migraines, she was on a nitro drip overnight, it was stopped at roughly 2:30 in the morning, no more chest pain, but she does complain of a severe 10 out of 10 headache, severe migraine headache, currently her blood pressure 160/100, normal sinus rhythm, saturating high 90s on room air. Her CT on admission was within normal limits. I spoke to Dr. Enrique over the phone, she feels that these are likely complex migraines, advised to give patient 500 mg of Depacon, to see if resolution of her symptoms if they do not we can repeat. She did not feel that this was stroke elated, likely complex migraine, likely she was on the nitro drip and this worsened her headaches. Plan is to give her 500 mg of Depacon, I have followed for the pharmacy, that there is a backorder on Depacon, will only 1 dose available. We will give it to her. CT of the head ordered she is going off to CT right now to rule intracranial hemorrhage. We will monitor her symptoms as she is getting Depacon, will reassess with neurology as time progresses and reassess patient. She is not on any anticoagulant therapy, she does take aspirin at home, but intermittently, her INR was in the normal limits, Hemoccult within normal limits, no history of bleeding. The high probability of a clinically significant, sudden or life threatening deterioration of the patient's [] system(s) required my full and direct attention, intervention and personal management. The critical care time is as shown. This time is in addition to time spent performing any reported procedures but includes the following: [x] Data and vital sign review and interpretation [x] Patient assessment, examination and intervention [x] Documentation [x] Medication orders and management Critical Care Time Code activated: No Critical Care Time (min): 50 Coding Level of Care Code Acute Communications Equipment Installer for Carina White
[2021-12-03] MEDS: valproic acid inj 500 MG in sodium chloride 0.9% 50 ML 55 MG IV (06:05)
--- NOTE | 2021-12-03 06:20 | PC.NURSE ---
Dr. Amaro gave verbal order to cancel stress test. Radiology notified.
[2021-12-03] MEDS: gabapentin 300 mg Capsule 600 MG PO ×4 (06:35→20:16)
[2021-12-03] MEDS: topiramate 25 mg Tablet 50 MG PO ×3 (06:35→19:00)
--- NOTE | 2021-12-03 07:27 | PC.NURSE ---
Neurological Change At 0533, patient complained of severe headache, PRN morphine administered per SEP. At 0540, patient still in pain but neurologically the same as previously. At 0543, patient noted to have a prominent left sided facial droop, mild left sided weakness with drift in both left arm and leg, mild slurring of speech, and mild loss of sensation. Patient stated this droop happens when I have migraines at home. Dr. Amaro contacted and stroke alert called. Dr. Amaro at bedside, Dr. Jailyn Enrique called for consultation. Order placed for head CT and Depacon [address] completed, medication administered per SEP. Dr. Amaro at bedside of patient several times for further evaluation. At 06, verbal order received from Dr. Amaro to administer first dose of Topamax and Gabapentin now. Medication administration per SEP. Upon last evaluation, patient's droop and weakness less prominent, with more articulate speech.
[2021-12-03 08:20] LABS: Glucose Point of Care 115 mg/dL (70-110)
--- NOTE | 2021-12-03 10:06 | P.PN_ITS ---
Subjective Subjective: Morning events noted, at the time of evaluation patient was drowsy after getting morphine and Depakote However she still has left-sided mild facial droop She is able to move all of her extremities, she stated her HPI again to me but kept saying that she is forgetting She was complaining of chest tightness and pressure-like sensation 3/10, stress test was canceled this morning, I requested Dr. Deleon to evaluate the patient as well, tropes are unremarkable Echo is unremarkable She is describing her chest pain as pressure-like sensation substernally not radiating, it stays for more than 30 minutes at a time, I did not appreciate any slurring or word NIH will be 1 for mild left-sided facial droop is at the bedside Please note her heart rate is in 50s and blood pressure is 119/60 mmHg, My concern is related to aggressive lowering of blood pressure that might cause drowsiness Nitro drip has been turned off We will keep her n.p.o. until cardiac evaluation Vitals/I&O/Wt Last Vital Signs Temp 96.9 F L 12/03/21 07:30 Pulse 56 L 12/03/21 08:04 Resp 16 12/03/21 08:04 BP 127/74 12/03/21 08:00 Pulse Ox 94 12/03/21 08:04 12/02/21 12/03/21 12/03/21 22:59 06:59 14:59 Intake Total 2.6 / 2.6 55 / 55 Output Total 310 / 310 450 / 450 Balance -307.4 / -307.4 -395 / -395 Weight last 48 hrs Weight 85.275 kg Weight 85.275 kg Weight 84.822 kg Physical Exam Narrative: Patient is laying flat Complaining of chest pain 3/10 substernally Blood pressure 119/60 mmHg, heart rate in 55, NIH 1 Left-sided mild facial droop No slurring of speech No tongue deviation Able to move all lower extremities Finger-nose test unremarkable Gait was not tested S1, S2 sinus bradycardia Abdomen soft Saturating well on room air Following commands No signs of meningitis Data : 12/03/21 03:24 12/03/21 03:24 A&P Assessment and plan (1) Hypertensive emergency: Status: Acute (2) Chest pain: Status: Acute (3) Hypertension: Status: Acute (4) COPD (chronic obstructive pulmonary disease): Status: Acute (5) Hypertension: Status: Acute (6) Diabetes: Status: Acute (7) Facial droop: Status: Acute Plan Unstable angina Coronary artery disease risk factors include, age, hypertension, diabetes, Patient is describing chest tightness which stays more than 30 minutes improved with morphine Tropes unremarkable, echo did not show wall motion abnormality Asked Dr. Deleon for evaluation as well Cardiac stress counseled because of active chest pain She became bradycardic with nitro however EKG not consistent with inferior wall GA Left-sided facial droop NIH 1 for mild left-sided facial droop, no slurring of speech, no signs of meningitis, no skin rash, Concern for complex migraine CT head unremarkable Patient stating she has seen this before with her high blood pressure and migraine in the past Currently her blood pressure is low normally her systolic blood pressure range is above 140, concern for press syndrome Will do MRI brain once I know what cardiology has recommended We will keep her n.p.o. until cardiac evaluation For complex migraine avoid sumatriptan because of active chest pain Continue Topamax She is very drowsy, hold valproic acid for now Hypertensive emergency: Nitro drip has been turned off, Avoid aggressive lowering of blood pressure DVT prophylaxis Lovenox Patient is full code Goals of care DNR/DNI discussed by the admitting physician Attestations Medical Necessity Statement*: 35mins Time Spent in Patient Care: 40mins Coding Level of Care Code Acute Hydrogenation Still Operator for Chg 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 Hypertension I10 COPD (chronic obstructive pulmonary disease) J44.9 Hypertension I10 Diabetes E11.9 Facial droop R29.810
--- NOTE | 2021-12-03 10:48 | PM.CONSULT ---
Providers/Reason For Consult Consulting Physician/Specialty*: Franky Deleon MD/ Cardiology Reason for Consult*: Chest pain/ hypertensive urgency Requesting Physician: Dr Coates Attending Physician: Enmanuel Amaro MD Primary Care Provider: Alli Barbour MD History of Present Illness History of Present Illness Mary Ann Donohue is a 61 year old female with past medical history of hypertension, diabetes and hyperlipidemia who presented to the hospital with chest pain and numbness in the arms. Her blood pressure was very high at the time presented to the hospital. Troponins did not trend up. EKG does not show significant ischemic changes. Chest pain is central and nonexertional. Cardiology was consulted to evaluate her chest discomfort symptoms. Review of Systems Const: Denies: fever(s) Eyes: Denies: change in vision Card: Reports: chest pain Resp: Denies: dyspnea, productive cough, non-productive cough or wheezing GI: Denies: abdominal pain, nausea, vomiting or hematemesis : Denies: dysuria Musc: Denies: back pain Neuro: Denies: headache(s), dizziness or vertigo Endo: Denies: polyuria or polydipsia Medications/Allergies Home Medications Medication Instructions Recorded Confirmed Last Taken Type gabapentin 600 mg tablet 600 mg PO TID 10/16/19 12/03/21 Unknown History lorazepam 1 mg tablet 1 mg PO DAILY PRN 10/16/19 12/03/21 Unknown History metformin 500 mg tablet 500 mg PO BID PRN 10/16/19 12/03/21 Unknown History sumatriptan succinate 25 mg tablet 25 mg PO Q2H PRN 10/16/19 12/03/21 Unknown History albuterol sulfate 2.5 mg (3 mL) INHALATION Q4H PRN 04/06/20 12/03/21 04/11/20 Rx #90 ml acetaminophen 500 mg tablet 500 - 1,000 mg PO BID PRN 04/11/20 12/03/21 04/10/20 History albuterol sulfate 90 mcg/actuation 1 inh INHALATION QID PRN 04/11/20 12/03/21 04/11/20 History aerosol inhaler atenolol 50 mg-chlorthalidone 25 1 tab PO DAILY 04/11/20 12/03/21 Unknown History mg tablet atorvastatin 80 mg tablet 80 mg PO BEDTIME 04/11/20 12/03/21 12/02/21 History guaifenesin 600 mg tablet, 600 mg PO Q12H PRN 04/11/20 12/03/21 04/11/20 History extended release 12 hr (Mucinex) topiramate 50 mg tablet 50 mg PO BID 04/11/20 12/03/21 Unknown History trazodone 100 mg tablet 100 mg PO BEDTIME 04/11/20 12/03/21 Unknown History venlafaxine 150 mg 150 mg PO DAILY 04/11/20 12/03/21 Unknown History capsule,extended release 24 hr Sole Supports #1 each 05/06/20 12/03/21 Unknown Rx ibuprofen 800 mg tablet 800 mg PO Q8H PRN 12/03/21 12/03/21 Unknown History tiotropium 2.5 mcg-olodaterol 2.5 1 inh INHALATION DAILY 12/03/21 12/03/21 Unknown History mcg/actuation mist for inhalation (Stiolto Respimat) Allergies Allergy/AdvReac Type Severity Reaction Status Date / Time No Known Allergies Allergy Verified 12/02/21 17:16 Current Medications Generic Name Dose Route Start Last Admin Trade Name Freq PRN Reason Stop Dose Admin Enoxaparin Sodium 40 mg 12/03/21 01:15 12/03/21 01:18 Enoxaparin 40 Mg/0.4 Ml Syringe SUBCUT 40 mg Q24H EMIR Administration Gabapentin 600 mg 12/03/21 06:30 12/03/21 08:11 Gabapentin 300 Mg Capsule PO 600 mg TID EMIR Administration Nitroglycerin/Dextrose 50 mg in 250 mls @ 0 mls/hr 12/03/21 00:17 12/03/21 02:20 Nitroglycerin Drip IV 0 mcg/min .Q0M EMIR 0 mls/hr Titration Protocol Per Protocol Valproic Acid 500 mg/ Sodium 55 mls @ 55 mls/hr 12/03/21 06:00 12/03/21 07:14 Chloride IV Infused Q12H EMIR Infusion Insulin Human Lispro 0 unit 12/03/21 08:00 12/03/21 08:07 Insulin Lispro 100 Unit/1 Ml SUBCUT Not Given TIDWM EMIR Protocol Morphine Sulfate 2 mg 12/03/21 00:17 12/03/21 05:33 Morphine 4 Mg/Ml Sdv 1 Ml IVP 2 mg Q4H PRN Administration SEVERE PAIN Pantoprazole Sodium 40 mg 12/03/21 00:17 12/03/21 01:10 Pantoprazole 40 Mg Sdv IVP 40 mg Q24H EMIR Administration Topiramate 50 mg 12/03/21 06:30 12/03/21 08:11 Topiramate 25 Mg Tablet PO 50 mg BID EMIR Administration Venlafaxine HCl 150 mg 12/03/21 09:00 12/03/21 08:25 Venlafaxine Er (24hr) 150 Mg Capsule PO Not Given DAILY EMIR PFSH Acute PFSH: Medical History COPD (chronic obstructive pulmonary disease) Diabetes Hypertension Pneumonia due to COVID-19 virus Tumor Surgical History H/O: hysterectomy History of appendectomy Hx of tonsillectomy Social History Smoking and tobacco status: current every day smoker Vitals/I&O/Wt Last Vital Signs Temp 96.9 F L 12/03/21 07:30 Pulse 56 L 12/03/21 08:04 Resp 16 12/03/21 08:04 BP 127/74 12/03/21 08:00 Pulse Ox 94 12/03/21 08:04 12/02/21 12/03/21 12/03/21 22:59 06:59 14:59 Intake Total 2.6 / 2.6 55 / 55 Output Total 310 / 310 450 / 450 Balance -307.4 / -307.4 -395 / -395 Weight last 48 hrs Weight 188 lb Weight 188 lb Weight 187 lb Physical Exam Narrative: GENERAL: Patient is alert, awake and oriented x3. [] NECK: No jugular vein distension. [] HEENT: No cyanosis. No icterus. No pallor. [] HEART: Regular S1 and S2. No murmur, rub or gallop. [] LUNGS: Clear to auscultate bilaterally. [] ABDOMEN: Soft, nontender and nondistended. Positive bowel sounds. No guarding, rebound or tenderness. [] CENTRAL NERVOUS SYSTEM: Grossly nonfocal. [] EXTREMITIES: Lower extremities with 1+ edema bilaterally. Pulses palpable in the lower extremities, both dorsalis pedis and posterior tibial. [] Data : 12/04/21 03:15 12/04/21 03:15 A&P Assessment and plan (1) Chest pain: Status: Acute (2) Hypertension: Status: Acute (3) COPD (chronic obstructive pulmonary disease): Status: Acute (4) Hypertension: Status: Acute (5) Diabetes: Status: Acute (6) Hypertensive emergency: Status: Acute Plan Patient is chest pain-free at this time. Her EKG is not showing any significant ischemic changes. We will recommend a stress test to rule out CAD as chest pain likely related to hypertensive emergency. Echocardiogram shows normal LV systolic function. Blood pressure is better controlled now. Continue antihypertensive medications. Low sodium diet. Thank you for involving us with care of this patient. We will continue to follow. Please call with questions. Consult Attestations Medical Necessity Statement: Care expected to cross 2 midnights. Coding Level of Care Code Acute Economic Historian for Carina White Diagnoses Chest pain R07.9 Hypertension I10 COPD (chronic obstructive pulmonary disease) J44.9 Hypertension I10 Diabetes E11.9 Hypertensive emergency I16.1
[2021-12-03] MEDS: potassium chloride ER 20 mEq Tablet PO (11:13)
[2021-12-03 11:19] LABS: Glucose Point of Care 112 mg/dL (70-110)
[2021-12-03 17:15] LABS: Glucose Point of Care 98 mg/dL (70-110)
--- NOTE | 2021-12-03 17:37 | PC.NURSE ---
Pt has been resting in bed this shift with at bedside. Left sided facial droop still present and organ pipe voicer are equal. No other deficits are noted. She has been able to transfer herself to bedside commode. Pt has complained of an uncomfortable feeling in her chest at a 2/10 but requested no pain medications. Stress test scheduled for tomorrow morning. Pt aware.
[2021-12-03 19:08] LABS: Glucose Point of Care 114 mg/dL (70-110)
[2021-12-03] MEDS: trazodone 100 mg Tablet PO (20:16)
[2021-12-03] MEDS: atorvastatin 40 mg Tablet 80 MG PO (20:16)
[2021-12-03] MEDS: cyclobenzaprine 10 mg Tablet PO (20:36)
--- NOTE | 2021-12-03 23:29 | PC.NURSE ---
Blood Pressure Patient's blood pressure 81/51 with a MAP of 61 at 2300 and 84/54 with a MAP of [address] Amaro notified; verbal order received to administer 500 ml NS bolus once now. Medication administered per SEP.
[2021-12-03] MEDS: sodium chloride 0.9% 500 ML 999 ML IV (23:42)
[2021-12-04] VITALS (34 sets, daily range): BP systolic 86–135; BP diastolic 47–80; PULSE 50–83; RESP 13–27; TEMP 36.1–36.8; O2SAT 91–99; BMI 30.7
[2021-12-04 00:43] LABS: Glucose Point of Care 111 mg/dL (70-110)
[2021-12-04] MEDS: enoxaparin 40 mg/0.4 mL Syringe SUBCUT (00:43)
--- NOTE | 2021-12-04 02:15 | PC.NURSE ---
Blood Pressure Patient's BP still soft. Dr. Amaro contacted and order placed by Dr. Amaro for Midodrine. Medication administered per SEP.
[2021-12-04] MEDS: midodrine 5 mg TABLET PO ×3 (02:29→17:41)
[2021-12-04 04:04] LABS: Basophils # 0.1 10^3/uL (0.0-0.1); Basophils % 0.5 %; Eosinophils # 0.3 10^3/uL (0.0-0.8); Eosinophils % 2.3 %; Hematocrit 41.6 % (37.0-47.0); Hemoglobin 13.3 g/dL (11.5-15.3); Lymphocytes # 3.4 10^3/uL (0.8-4.8); Lymphocytes % 30.9 %; Mean Corpuscular Hemoglobin 29.7 pg (28.0-34.0); Mean Corpuscular Volume 92.9 fl (81-99); Mean Platelet Volume 10.4 fL (7.4-10.4); Monocytes # 0.7 10^3/uL (0.2-0.9); Monocytes % 6.7 %; Neutrophils # 6.52 10^3/uL (1.8-7.7); Nucleated Red Blood Cells % 0 %; Platelet Count 229 10^3/cmm (130-400); Red Blood Count 4.48 10^6/uL (4.1-5.3); Red Cell Distribution Width 13.5 % (12.1-15.1); White Blood Count 11.1 10^3/uL (4.0-10.0)
[2021-12-04 04:28] LABS: Alanine Aminotransferase 27 U/L (0-33); Albumin Level 3.7 g/dL (3.5-5.2); Alkaline Phosphatase 79 IU/L (35-105); Aspartate Amino Transferase 19 U/L (0-32); Blood Urea Nitrogen 24 mg/dL (8-23); Calcium 8.9 mg/dL (8.5-10.5); Carbon Dioxide 20 mmol/L (22-29); Chloride 102 mmol/L (98-107); Globulin 2.8 g/dL (1.3-4.6); Glomerular Filtration Rate 50.3 mL/min (90-130); Glucose 119 mg/dL (65-115); Magnesium 2.5 mg/dL (1.7-2.3); Osmolality Calculated 289 mOsm/kg (285-295); Phosphorus 5.5 mg/dL (2.5-4.5); Sodium 137 mmol/L (136-145); Total Bilirubin 0.5 mg/dL (0.15-1.2); Total Protein 6.5 g/dL (6.6-8.7)
[2021-12-04 04:32] LABS: Anion Gap 18.8 (5-19); Potassium 3.8 mmol/L (3.5-5.1)
--- NOTE | 2021-12-04 05:20 | PC.NURSE ---
Urine Output Patient's urine output 40 ml throughout the night. Bladder scan performed; [address] Amaro notified of continuing soft BP, cap refill >3 seconds, low output, increased BUN/Ophthalmologist Retina Specialist, and bladder scan results. Orders received to insert a ferreira catheter and start NS maintenance fluids at 100 ml/hr. Ferreira placed, 225 ml of urine returned. See MAR for medication administration.
[2021-12-04] MEDS: sodium chloride 0.9% 1,000 ML 100 ML IV ×2 (05:30→15:35)
--- NOTE | 2021-12-04 07:00 | PM.PN ---
Subjective Subjective: Patient has been having doing good. No complaints of chest pain. Stress test is normal. Vitals/I&O/Wt Last Vital Signs Temp 97.7 F 12/04/21 04:00 Pulse 56 L 12/04/21 06:30 Resp 17 12/04/21 06:30 BP 98/51 12/04/21 06:30 Pulse Ox 94 12/04/21 06:30 12/03/21 12/04/21 12/04/21 22:59 06:59 14:59 Intake Total 930 / 1345 1049.5 / 2394.5 Output Total 300 / 750 265 / 1015 Balance 630 / 595 784.5 / 1379.5 Weight last 48 hrs Weight 190 lb Weight 188 lb Weight 188 lb Weight 187 lb Physical Exam Narrative: GENERAL: Patient is alert, awake and oriented x3. [] NECK: No jugular vein distension. [] HEENT: No cyanosis. No icterus. No pallor. [] HEART: Regular S1 and S2. No murmur, rub or gallop. [] LUNGS: Clear to auscultate bilaterally. [] ABDOMEN: Soft, nontender and nondistended. Positive bowel sounds. No guarding, rebound or tenderness. [] CENTRAL NERVOUS SYSTEM: Grossly nonfocal. [] EXTREMITIES: Lower extremities with 1+ edema bilaterally. Pulses palpable in the lower extremities, both dorsalis pedis and posterior tibial. [] Urinary Catheter Management: Deshpande: Cath Placed During This Visit: yes Reason for Continuing Indwelling Catheter: Accurate Measurement of Urinary Output in Critically Ill Patients Urinary Catheter Date of Insertion: 12/04/21 Urinary Catheter Time of Insertion: 05:47 Data : 12/04/21 03:15 12/04/21 03:15 A&P Assessment and plan (1) Chest pain: Status: Acute (2) Hypertension: Status: Acute (3) COPD (chronic obstructive pulmonary disease): Status: Acute (4) Hypertension: Status: Acute (5) Diabetes: Status: Acute (6) Hypertensive emergency: Status: Acute Plan Patient is chest pain-free at this time. Her EKG is not showing any significant ischemic changes. Stress test is negative for ischemia.Chest pain is secondary to hypertensive emergency. Resolved now. Medical therapy for blood pressure control Echocardiogram shows normal LV systolic function. Blood pressure is better controlled now. Continue antihypertensive medications. Low sodium diet. Thank you for involving us with care of this patient. Please call with questions. Attestations Medical Necessity Statement*: Care expected to cross 2 midnights. Coding Level of Care Code Acute Patient Assessment Coordinator for Carina White Diagnoses Chest pain R07.9 Hypertension I10 COPD (chronic obstructive pulmonary disease) J44.9 Hypertension I10 Diabetes E11.9 Hypertensive emergency I16.1
--- NOTE | 2021-12-04 07:01 | PC.NURSE ---
Fluid Bolus Dr. Deleon at patient bedside; blood pressure, urine output, ferreira placement, and HR discussed. Verbal order received to deliver another 500 ml bolus of NS at 999 ml/hr. Bolus delivered per SEP.
--- NOTE | 2021-12-04 07:20 | ECG_ITS ---
[facility] Test Date: 2021-12-04 Pat Name: Mary Ann Donohue Department: Room: [facility] Gender: Female Burner Technician: Sherlyn Jacob : 1960 Requested By: Enmanuel Amaro Order Number: [id number] Dottie MD: Seda Dia M.D. Interpretive Statements NAME OF STUDY: LEXISCAN SESTAMIBI STRESS TEST INDICATION: Ua, PROCEDURE: At the baseline, the EKG revealed sinus bradycardia at a rate of 59 bpm. Nonspecific T wave changes. The baseline blood pressure was 114/63 mm Hg with a heart rate of 59 beats/min. Lexiscan was infused over a period of 20 seconds. A total of 0.4 milligrams of Lexiscan was infused. The stress phase was continued for a total of 5 minutes. Heart rate at the end of the stress phase was 87 with a blood pressure 101/63. The EKG at the peak infusion revealed no significant changes. Sestamibi was injected 20 seconds after the Lexiscan infusion. Blood pressure at the end of the recovery phase was 106/64 with a heart rate of 81 per minute. CONCLUSION: 1. No significant EKG changes with the LexiScan infusion 2. No LexiScan induced chest pain or cardiac arrhythmia 3. Normal blood pressure and heart rate response 4. Sestamibi/sestamibi perfusion scan pending; see separate report. Electronically Signed On 12-04-2021 13:32:36 CDT by Seda Dia M.D. [id number]
[2021-12-04] MEDS: regadenoson 0.4 Mg/5 ml Syringe IVP (08:16)
--- NOTE | 2021-12-04 08:49 | PM.PN ---
Subjective Subjective: 560 urine output, low blood pressure and bradycardia, however patient chest pain, shortness of breath is improved, she is not endorsing overnight events Overnight she was given 500 mm bolus, this morning I have given another 500 mL bolus total 1 L She did not require nitrate overnight Vitals/I&O/Wt Last Vital Signs Temp 97.7 F 12/04/21 04:00 Pulse 83 12/04/21 08:33 Resp 13 12/04/21 07:00 BP 106/64 12/04/21 08:33 Pulse Ox 95 12/04/21 07:00 12/03/21 12/04/21 12/04/21 22:59 06:59 14:59 Intake Total 930 / 1345 1049.5 / 2394.5 Output Total 300 / 750 265 / 1015 Balance 630 / 595 784.5 / 1379.5 Weight last 48 hrs Weight 86.183 kg Weight 85.275 kg Weight 85.275 kg Weight 84.822 kg Physical Exam Narrative: Pleasant cooperative female laying flat No active neurological deficits Saturating well on room air S1, S2 Sinus bradycardia Blood pressure 106/64 No active chest pain shortness of breath confusion Very pleasant and cooperative during evaluation Left-sided facial droop is improved Urinary Catheter Management: Deshpande: Cath Placed During This Visit: yes Reason for Continuing Indwelling Catheter: Accurate Measurement of Urinary Output in Critically Ill Patients Urinary Catheter Date of Insertion: 12/04/21 Urinary Catheter Time of Insertion: 05:47 Data : 12/04/21 03:15 12/04/21 03:15 A&P Assessment and plan (1) Facial droop: Status: Acute (2) Hypertensive emergency: Status: Acute (3) Chest pain: Status: Acute (4) COPD (chronic obstructive pulmonary disease): Status: Acute (5) Diabetes: Status: Acute Plan Unstable angina Stress test today Echo is unremarkable Troponin unremarkable EKG without ischemic or infarctive changes Patient is sinus bradycardia with MAP of 65-66 Not on any AV tanvi blocking agents TSH is normal Check D-dimer Patient is dehydrated that will explain her hypotension Responded very well to IV fluids Creatinine jumped up as well VICKY related to dehydration Anticipate improvement with IV fluid Her BNP is 517 however echo is unremarkable Close monitor for any signs of worsening fluid overload She is saturating well on room air Complex migraine: Neurological symptoms improved Hold Flexeril, blood pressure is soft DNR/DNI N.p.o. for stress test Attestations Medical Necessity Statement*: 30mins Coding Level of Care Code Acute Access Coordinator for Chg Fwd Diagnoses Facial droop R29.810 Hypertensive emergency I16.1 Chest pain R07.9 COPD (chronic obstructive pulmonary disease) J44.9 Diabetes E11.9
--- NOTE | 2021-12-04 09:27 | PC.CHAP ---
Pastoral Care Encounter/Spiritual Assessment Type of Contact [] Declined spray machine operator visit [] Patient/Family/Request visit [] Outpatient visit [] Follow-up visit [] Physician referral [] Code/Alert [x] Routine visit [] Staff referral [] Actively dying [] Patient sleeping [x] Family support [] [x] Out of room [] Palliative care [] [] Receiving care in room [] Pre-surgical visit [] Trauma [] Long length of stay [x] ICU visit [x] Other: out for testing Relational/Emotional Strength [] Patient feels connected with others/family/visitors/staff [] Distress [] Loneliness/isolation [] Abandonment Spirituality of Patient [] Person of Casie [] Attends [employer] of their Casie [] Believes in Prayer [] Reads Bible or Religion materials [] There are Spiritual issues to be addressed Rim Technician Interventions [x] Prayer [] Active listening [] Non-anxious presence [] Spiritual/emotional support [] Crisis/trauma care [] Spiritual counseling [] Bereavement support [] Provided bereavement packet [] Provided Bible/devotional materials [] Provided toy/stuffed animal, coloring book to patient or family member [] Provided Communion [] Anointing/[place] [] Salvation [x] Completed spiritual assessment [] Other: Impact on Illness or Injury [] Angry [] Fearful [] Anxious [] Often cries [] Exhaustion [] Unable to work [] Unable to attend orthodox [] Unable to walk/stand [] Unable to read [] Unable to drive [] Unable to eat/drink [] Unable to sleep [] Unable to be with family [] Patient intubated [] Other: Summary Time spent with patient
[2021-12-04 09:44] LABS: Glucose Point of Care 103 mg/dL (70-110)
[2021-12-04] MEDS: topiramate 25 mg Tablet 50 MG PO ×2 (09:55→17:41)
[2021-12-04] MEDS: gabapentin 300 mg Capsule 600 MG PO ×3 (09:55→20:53)
--- NOTE | 2021-12-04 10:45 | PC.NURSE ---
Pt was offered a peanut butter and jelly sandwich and she refused stating she would wait for lunch.
[2021-12-04 11:08] LABS: D Dimer 0.46 ug/mIFEU (0-0.59)
[2021-12-04 11:36] LABS: Glucose Point of Care 112 mg/dL (70-110)
--- NOTE | 2021-12-04 11:50 | NMCV_ITS ---
NM vi perf SPECT r/s* [id number] Mary Ann Donohue Age: 61 Gender: F : 1960 Exam Date: 12/04/2021 11:50 Ordering Phys: Elham Coates MD Technologist: AVA Albright Exam Location: [facility] Indications: CHEST PAIN STRESS TEST Please see separate stress test report in [facility] for full findings IMAGE PROTOCOL Rest/Stress 1 Lexiscan Day Radiopharmaceutical Dose (mCi) Administration Site Administered by Rest: Tc-99m 10.8 IV AVA Esqueda Sestamibi Stress:Tc-99m 32.8 IV AVA Albright Sestaminany Rest: 04-Dec-2021 60 Discovery 630 Stress: 04-Dec-2021 30 Discovery 630 0.4mg Lexiscan. Supine position only as patient was unable to lay prone. SPECT RESULTS Technical Quality: Excellent Raw Data Analysis: Normal Image Corrections: No attenuation or motion correction applied Summed Stress Score: 0 Summed Rest Score: 12 Summed Difference Score: 0 PERFUSION FINDINGS Reduced radiotracer uptake is seen in the apical, apical inferior and inferolateral ansari on rest that resolved on stress images. This is consistent with attenuation artifact. Overall normal myocardial perfusion imaging. FUNCTIONAL RESULTS (calculated via Gated SPECT) Stress Image LV EF (%): 77 Stress EDV (mL):53 TID: 0.84 Stress ESV (mL):12 FUNCTIONAL FINDINGS: There is normal left ventricular systolic function. IMPRESSIONS 1. Normal myocardial perfusion imaging with no evidence of ischemia. Attenuation artifact is seen in the apical, apical inferior and inferolateral ansari 2. LV systolic function is normal Franky Deleon MD (Electronically Signed) Final Date: 04 December 2021 10:13 S
--- NOTE | 2021-12-04 16:40 | PC.NURSE ---
Pt was transferred to [facility] with all belongings on room air. All deficits resolved. No chest pain voiced this shift.
[2021-12-04 17:40] LABS: Glucose Point of Care 125 mg/dL (70-110)
[2021-12-04] MEDS: trazodone 100 mg Tablet PO (20:53)
[2021-12-04] MEDS: atorvastatin 40 mg Tablet 80 MG PO (20:53)
[2021-12-04 21:01] LABS: Glucose Point of Care 127 mg/dL (70-110)
[2021-12-05] VITALS: BP 103/58; PULSE 65; RESP 18; TEMP 36.7; O2SAT 94
[2021-12-05] MEDS: pantoprazole 40 mg SDV IVP (01:05)
[2021-12-05] MEDS: midodrine 5 mg TABLET PO ×2 (01:45→10:38)
[2021-12-05] MEDS: enoxaparin 40 mg/0.4 mL Syringe SUBCUT (01:45)
[2021-12-05] MEDS: sodium chloride 0.9% 1,000 ML 100 ML IV (01:45)
[2021-12-05 04:00] VITALS: BP 106/56; PULSE 62; RESP 18; TEMP 36.5; O2SAT 93
[2021-12-05 06:13] LABS: Basophils # 0.1 10^3/uL (0.0-0.1); Basophils % 0.5 %; Eosinophils # 0.3 10^3/uL (0.0-0.8); Eosinophils % 3.4 %; Hematocrit 37.2 % (37.0-47.0); Hemoglobin 12.2 g/dL (11.5-15.3); Lymphocytes # 3.8 10^3/uL (0.8-4.8); Lymphocytes % 39.3 %; Mean Corpuscular HGB Conc 32.8 g/dL (30.0-36.0); Mean Corpuscular Volume 91.4 fl (81-99); Mean Platelet Volume 11.1 fL (7.4-10.4); Monocytes # 0.7 10^3/uL (0.2-0.9); Monocytes % 7.7 %; Neutrophils # 4.64 10^3/uL (1.8-7.7); Neutrophils % 48.4 %; Nucleated Red Blood Cells % 0 %; Platelet Count 201 10^3/cmm (130-400); Red Blood Count 4.07 10^6/uL (4.1-5.3); Red Cell Distribution Width 13.5 % (12.1-15.1); White Blood Count 9.6 10^3/uL (4.0-10.0)
[2021-12-05 06:19] LABS: Glucose Point of Care 102 mg/dL (70-110)
[2021-12-05 06:24] LABS: Alanine Aminotransferase 22 U/L (0-33); Albumin Level 3.6 g/dL (3.5-5.2); Alkaline Phosphatase 71 IU/L (35-105); Anion Gap 15.6 (5-19); Aspartate Amino Transferase 14 U/L (0-32); Blood Urea Nitrogen 21 mg/dL (8-23); Calcium 8.4 mg/dL (8.5-10.5); Carbon Dioxide 17 mmol/L (22-29); Chloride 110 mmol/L (98-107); Globulin 2.3 g/dL (1.3-4.6); Glomerular Filtration Rate 84.8 mL/min (90-130); Glucose 106 mg/dL (65-115); Magnesium 2.3 mg/dL (1.7-2.3); Osmolality Calculated 291 mOsm/kg (285-295); Phosphorus 3.8 mg/dL (2.5-4.5); Potassium 3.6 mmol/L (3.5-5.1); Sodium 139 mmol/L (136-145); Total Bilirubin 0.3 mg/dL (0.15-1.2); Total Protein 5.9 g/dL (6.6-8.7)
[2021-12-05] MEDS: venlafaxine ER (24HR) 150 mg Capsule PO (07:42)
[2021-12-05] MEDS: gabapentin 300 mg Capsule 600 MG PO (07:42)
[2021-12-05] MEDS: topiramate 25 mg Tablet 50 MG PO (07:42)
[2021-12-05 07:52] VITALS: BP 134/80; PULSE 64; RESP 14; TEMP 36.6; O2SAT 96
[2021-12-05 08:00] VITALS: PULSE 65; RESP 16; O2SAT 96
--- NOTE | 2021-12-05 11:27 | P.DS_ITS ---
Discharge Providers Date of Admission: 12/03/21 06:03 Date of Discharge: December 05, 2021 Attending Provider at Admission: Enmanuel Amaro MD Attending Provider at Discharge: Elham Coates MD Primary Care Provider: Alli Barbour MD Diagnoses at Discharge Discharge Diagnosis (1) Chest pain: Status: Acute (2) Hypertension: Status: Acute (3) COPD (chronic obstructive pulmonary disease): Status: Acute (4) Hypertension: Status: Acute (5) Diabetes: Status: Acute (6) Hypertensive emergency: Status: Acute Reason for Visit Reason for Visit: High bp, numbness in legs, heaviness in chest Hospital Course Hospital Course 61-year female who was admitted for management and evaluation of chest pain. During her hospitalization left-sided facial droop was noticed during her migraine episode. CT head unremarkable, neurologist recommended treatment for her migraine and treated as complex migraine patient. She was not a candidate of tPA. Her symptoms improved with better control of blood pressure. She was complaining of chest pain, stress test was unremarkable, cardiology was consulted. Echo was unremarkable as well. TSH normal. Her symptoms improved with improvement of blood pressure with IV fluids. Her heart rate remained below 60. I will discharge on event monitor. At home she does take atenolol. Chest CTA ruled out PE. I have discontinued her atenolol chlorthalidone combination, will give her amlodipine for her hypertension history. Physical Exam Narrative: Pleasant cooperative female Saturating well on room air S1, S2 Sinus bradycardia improved, heart rate has remained in 60s Blood pressure improved as well No active chest pain shortness of breath confusion Very pleasant and cooperative during evaluation Left-sided facial droop is improved Abdomen soft Euvolemic at the bedside Urinary Catheter Management: Deshpande: Cath Placed During This Visit: yes Reason for Continuing Indwelling Catheter: Accurate Measurement of Urinary Output in Critically Ill Patients Urinary Catheter Date of Insertion: 12/04/21 Urinary Catheter Time of Insertion: 05:47 Discharge Data Studies Completed and Pending Completed Studies During Hospitalization Category Date Time Status CT head wo con* [id number] Routine Cat Scan 12/03/21 00:[address] head wo con* [id number] Urgent Cat Scan 12/03/21 05:57 Completed CTA chest [CT angio chest PE protcl [id number]] Urgent Cat Scan 12/02/21 21:20 Completed Sestamibi Stress Test Request Routine Exams 12/04/21 07:20 Completed XR chest 1V portable [id number] Stat Exams 12/02/21 17:00 Completed NM vi perf SPECT r/s* [id number] Routine Nuc Med 12/04/21 11:50 Completed CV. echo complete* [id number] Routine Ultrasound 12/03/21 00:17 Completed Pending at discharge Category Date Time Status Sestamibi Stress Test Request Routine Exams 12/03/21 00:17 Ordered Sestamibi Stress Test Request Routine Exams 12/03/21 11:50 Stop Req Radiology Impressions Chest X-Ray 12/02/21 17:00 IMPRESSION: No acute findings. Chest CTA 12/02/21 21:20 IMPRESSION: There are no acute concerning abnormalities. Head CT 12/03/21 05:57 IMPRESSION: No acute intracranial abnormality. ASSESSMENT: ASPECTS ([place] Stroke Program Early CT Score) is 10. Laboratory Results WBC 9.6 10^3/uL (4.0-10.0) 12/05/21 04:25 RBC 4.07 10^6/uL (4.1-5.3) L 12/05/21 04:25 Hgb 12.2 g/dL (11.5-15.3) 12/05/21 04:25 Hct 37.2 % (37.0-47.0) 12/05/21 04:25 MCV 91.4 fl (81-99) 12/05/21 04:25 MCH 30.0 pg (28.0-34.0) 12/05/21 04:25 MCHC 32.8 g/dL (30.0-36.0) 12/05/21 04:25 RDW 13.5 % (12.1-15.1) 12/05/21 04:25 Plt Count 201 10^3/cmm (130-400) 12/05/21 04:25 MPV 11.1 fL (7.4-10.4) H 12/05/21 04:25 Neut % (Auto) 48.4 % 12/05/21 04:25 Lymph % (Auto) 39.3 % 12/05/21 04:25 [place] % (Auto) 7.7 % 12/05/21 04:25 Eos % (Auto) 3.4 % 12/05/21 04:25 Baso % (Auto) 0.5 % 12/05/21 04:25 Neut # (Auto) 4.64 10^3/uL (1.8-7.7) 12/05/21 04:25 Lymph # (Auto) 3.8 10^3/uL (0.8-4.8) 12/05/21 04:25 [place] # (Auto) 0.7 10^3/uL (0.2-0.9) 12/05/21 04:25 Eos # (Auto) 0.3 10^3/uL (0.0-0.8) 12/05/21 04:25 Baso # (Auto) 0.1 10^3/uL (0.0-0.1) 12/05/21 04:25 Nucleated RBC % (auto) 0 % 12/05/21 04:25 Nucleated RBCs # 0.0 /100WBC 12/05/21 04:25 D-Dimer 0.46 ug/mIFEU (0-0.59) 12/04/21 10:34 Sodium 139 mmol/L (136-145) 12/05/21 04:25 Potassium 3.6 mmol/L (3.5-5.1) 12/05/21 04:25 Chloride 110 mmol/L (98-107) H 12/05/21 04:25 Carbon Dioxide 17 mmol/L (22-29) L 12/05/21 04:25 Anion Gap 15.6 (5-19) 12/05/21 04:25 BUN 21 mg/dL (8-23) 12/05/21 04:25 Creatinine 0.7 mg/dL (0.5-0.9) 12/05/21 04:25 GFR Calculation 84.8 mL/min (90-130) L 12/05/21 04:25 Glucose 106 mg/dL (65-115) 12/05/21 04:25 POC Glucose 102 mg/dL (70-110) 12/05/21 06:09 Estimat Average Glucose 117 12/03/21 03:24 Hemoglobin A1c 5.7 % (4.0-6.0) 12/03/21 03:24 Calculated Osmolality 291 mOsm/kg (285-295) 12/05/21 04:25 Calcium 8.4 mg/dL (8.5-10.5) L 12/05/21 04:25 Phosphorus 3.8 mg/dL (2.5-4.5) 12/05/21 04:25 Magnesium 2.3 mg/dL (1.7-2.3) 12/05/21 04:25 Total Bilirubin 0.3 mg/dL (0.15-1.2) 12/05/21 04:25 AST 14 U/L (0-32) 12/05/21 04:25 ALT 22 U/L (0-33) 12/05/21 04:25 Alkaline Phosphatase 71 IU/L (35-105) 12/05/21 04:25 Troponin T Baseline 6 ng/L (0-10) 12/02/21 19:35 Troponin T 120 Minute 6.53 ng/L (0-10) 12/02/21 20:37 Delta Troponin T 0.53 ABS# (0-10) 12/02/21 20:37 NT-Pro-B Natriuret Pep 517 pg/mL (0-125) H 12/03/21 03:24 Total Protein 5.9 g/dL (6.6-8.7) L 12/05/21 04:25 Albumin 3.6 g/dL (3.5-5.2) 12/05/21 04:25 Globulin 2.3 g/dL (1.3-4.6) 12/05/21 04:25 Triglycerides 310 mg/dL (0-150) H 12/03/21 03:24 Cholesterol 246 mg/dL (0-200) H 12/03/21 03:24 LDL Cholesterol, Calc 137 mg/dL (50-129) H 12/03/21 03:24 HDL Cholesterol 47 mg/dL (60-100) L 12/03/21 03:24 LDL/HDL Ratio 2.91 RATIO (0.00-3.22) 12/03/21 03:24 Cholesterol/HDL Ratio 5.23 mg/dL (0.0-4.40) H 12/03/21 03:24 TSH 3.95 uIU/mL (0.27-4.20) 12/03/21 03:24 Urine Opiates Screen Positive ng/mL (Negative) H 12/02/21 23:37 Ur Barbiturates Screen Negative ng/mL (Negative) 12/02/21 23:37 Ur Phencyclidine Scrn Negative ng/mL (Negative) 12/02/21 23:37 Ur Amphetamines Screen Negative ng/mL (Negative) 12/02/21 23:37 U Benzodiazepines Scrn Negative ng/mL (Negative) 12/02/21 23:37 Urine Cocaine Screen Negative ng/mL (Negative) 12/02/21 23:37 U Marijuana (THC) Screen Negative ng/mL (Negative) 12/02/21 23:37 Vitals Last Vital Signs Temp 97.9 F 12/05/21 07:52 Pulse 65 12/05/21 08:00 Resp 16 12/05/21 08:00 BP 134/80 12/05/21 07:52 Pulse Ox 96 12/05/21 08:00 Discharge Plan Discharge Patient Disposition: Home Condition: Stable Prescriptions: New amlodipine 5 mg tablet 5 mg PO DAILY Qty: 10 0RF Continued (DME) Sole Supports See Rx Instructions .ROUTE .MEDSUPPLY Qty: 1 0RF Rx Instructions: As directed albuterol sulfate 2.5 mg /3 mL (0.083 %) solution for nebulization 2.5 mg INHALATION Q4H PRN (Reason: shortness of breath or wheezing) Qty: 90 0RF gabapentin 600 mg Tablet 600 mg PO TID 0RF metformin 500 mg Tablet 500 mg PO BID PRN (Reason: blood sugar) 0RF sumatriptan succinate 25 mg Tablet 25 mg PO Q2H PRN (Reason: Migraine Headache) 0RF lorazepam 1 mg Tablet 1 mg PO DAILY PRN (Reason: Anxiety) 0RF atorvastatin 80 mg tablet 80 mg PO BEDTIME 0RF venlafaxine 150 mg capsule,extended release 24hr 150 mg PO DAILY 0RF acetaminophen 500 mg Tablet 500 - 1,000 mg PO BID PRN (Reason: Fever) 0RF trazodone 100 mg tablet 100 mg PO BEDTIME 0RF albuterol sulfate 90 mcg/actuation Hfa Aerosol Inhaler 1 inh INHALATION QID PRN (Reason: Shortness Of Breath) 0RF topiramate 50 mg tablet 50 mg PO BID 0RF guaifenesin [Mucinex] 600 mg Tablet Extended Release 12hr 600 mg PO Q12H PRN (Reason: Congestion) 0RF Stiolto Respimat 2.5-2.5 mcg/actuation mist 1 inh INHALATION DAILY 0RF Held ibuprofen 800 mg tablet 800 mg PO Q8H PRN (Reason: Pain) 0RF Hold Instructions: Resume on 12/18/21. Discontinued atenolol-chlorthalidone 50-25 mg tablet 1 tab PO DAILY 0RF Hold Instructions: Resume on 04/22/20. Rx Instructions: (PT STATES SHE HAS NOT BEEN TAKING MEDS REGULARLY THIS WEEK DUE TO ILLNESS) Discharge Orders: Discharge Order (Routine); Ordered 12/05/21 Ordered By: Elham Coates Other Ambulatory Orders: MCT/Event Monitor 14 Days (Routine) Timeframe: 14 Day Facility: [facility] - Location: Radiology Ordered By: Elham Coates Referrals: Alli Barbour MD [Primary Care Provider] - 4-7 days (Please call Tuesday to schedule a follow up appointment.) Discharge Diet: Cardiac Discharge Activity: Increase activity as tolerated Patient Instructions: Amlodipine (By mouth), Chest Pain (DC), Hypertensive Crisis (GEN), Chest Pain Stoplight Activity Restrictions/Additional Instructions: If you have not heart from [facility] by Tuesday, please call them at [phone] about your heart monitor to be placed. The order has been faxed over to them and they should be in contact with you. Discharge Attestations Time Spent in Discharge Care*: less than 30 min Quality Metrics Clinical Quality Measures [ No reported AMI, CVA or VTE this stay] Coding Level of Care Code Acute Chg FW DC note Diagnoses Chest pain R07.9 Hypertension I10 COPD (chronic obstructive pulmonary disease) J44.9 Hypertension I10 Diabetes E11.9 Hypertensive emergency I16.1
[2021-12-05 12:00] VITALS: BP 133/71; PULSE 62; RESP 16; TEMP 36.5; O2SAT 93
[2021-12-05 12:04] LABS: Glucose Point of Care 133 mg/dL (70-110)
== END 2021-12-05 12:19 | disposition home or self-care (01) | DRG 305 ==
LOC: ER 20:45 → ICU 12-03 02:11 → MEDSURG 12-04 16:41
PROVIDERS: Admitting Provider Family Medicine; Emergency Provider Emergency Medicine; PCP Family Medicine; Visit Provider Internal Medicine
DX: I16.1 Hypertensive emergency (principal); I20.0 Unstable angina; I10 Essential (primary) hypertension; E78.5 Hyperlipidemia, unspecified; J44.9 Chronic obstructive pulmonary disease, unspecified; E11.9 Type 2 diabetes mellitus without complications; Z87.01 Personal history of pneumonia (recurrent); Z86.16 Personal history of COVID-19; F17.200 Nicotine dependence, unspecified, uncomplicated; G43.109 Migraine with aura, not intractable, without status migrainosus; Z79.891 Long term (current) use of opiate analgesic; Z79.51 Long term (current) use of inhaled steroids; I95.9 Hypotension, unspecified; E86.0 Dehydration
CPT/HCPCS: 36415; 36416; 51702; 70450; 71045; 71275; 78452; 80048; 80053; 80061; 80306; 82962; 83036; 83735; 83880; 84100; 84443; 84484; 85025; 85378; 93005; 93017; 93306; 94664; 96372; 96374; 99285; A9500; C9113; G0378; J1650; J2270; J2785; J3490; J7030; J7040; Q9967

== ENCOUNTER 2025-01-08 08:06 | Outpatient (CLI) | payer OTHER, SELFPAY ==
--- NOTE | 2025-01-08 08:18 | MM_ITS ---
WS: [id number] BILATERAL 3D TOMOSYNTHESIS DIGITAL SCREENING MAMMOGRAPHY WITH CAD CLINICAL INFORMATION: SCREENING HISTORY: Screening mammogram. No current complaints. COMPARISON: 2016 TECHNIQUE: Bilateral CC and MLO views. FINDINGS: Scattered fibroglandular densities bilaterally. No suspicious focal mass, asymmetry, calcifications, or architectural distortion. No evidence of malignancy. Incidental benign calcifications RIGHT breast MM/MM scr BI tomosynthesis [id number] IMPRESSION: DENSITY: There are scattered areas of fibroglandular density. BI-RADS: 2 - Benign. FOLLOW UP: 1 Year Follow-up Recommend return to annual screening mammography.
== END 2025-01-08 08:07 | disposition home or self-care (01) ==
LOC: RAD 08:09
PROVIDERS: PCP Family Medicine; Visit Provider Family Medicine
DX: Z12.31 Encounter for screening mammogram for malignant neoplasm of breast (principal); R92.323 Mammographic fibroglandular density, bilateral breasts; R92.1 Mammographic calcification found on diagnostic imaging of breast
CPT/HCPCS: 77063; 77067

== ENCOUNTER 2025-01-10 11:33 | Emergency (ER) | payer MEDICARE, SELFPAY ==
[2025-01-10 11:38] VITALS: BP 230/116; PULSE 80; RESP 16; O2SAT 99; BMI 34.7
--- OUTSIDE RECORDS SUMMARY | 2025-01-10 11:40 | XMS_ITS | Encounter Summary ---
Author Organization [facility] Address [address] [place] [address] Care Team Providers Care Motorized Squad Commanding Officer Name Role Phone Alli Barbour MD Primary Care Provider +- [phone] Encounter Details Date Type Department Care Team (Latest Contact Info) Description 02/09/2002 Outpatient Historical [facility] [address] [place] [address] Carlos Hill MD NO ADDRESS ON FILE SURGERY FOLLOWUP, UNSPEC (Primary Dx) Social History Tobacco Use Types Packs/Day Years Used Date Smoking Tobacco: Never Assessed Comments Unknown Sex and Gender Information Value Date Recorded Sex Assigned at Not on file 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
--- OUTSIDE RECORDS SUMMARY | 2025-01-10 11:40 | XMS_ITS | Encounter Summary ---
Author Organization [facility] Address [address] [place] [address] Care Team Providers Care Home Health Clinician Name Role Phone Alli Barbour MD Primary Care Provider +1- [phone] Encounter Details Date Type Department Care Team (Latest Contact Info) Description 12/15/2001 Outpatient Historical [facility] [address] [place] [address] Carlos Hill MD NO ADDRESS ON FILE PREOP EXAM OTHER SPECIFIED (Primary Dx); OVARIAN CYST NEC/NOS; FEM PELV PERITON ADHES POSTOP/INFEC Social History Tobacco Use Types Packs/Day Years Used Date Smoking Tobacco: Never Assessed Comments Unknown Sex and Gender Information Value Date Recorded Sex Assigned at Not on file 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
--- OUTSIDE RECORDS SUMMARY | 2025-01-10 11:40 | XMS_ITS | Encounter Summary ---
Author Organization [facility] Address [address] [place] [address] Care Team Providers Care Marketing Trainee Name Role Phone Alli Barbour MD Primary Care Provider +1- [phone] Encounter Details Date Type Department Care Team (Latest Contact Info) Description 11/20/2001 Outpatient Historical [facility] [place] [address] [place] [address] Carlos Hill MD NO ADDRESS ON FILE ENDOMETRIOSIS NOS (Primary Dx); ABDOMINAL PAIN RLQ Social History Tobacco Use Types Packs/Day Years Used Date Smoking Tobacco: Never Assessed Comments Unknown Sex and Gender Information Value Date Recorded Sex Assigned at Not on file 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
--- OUTSIDE RECORDS SUMMARY | 2025-01-10 11:40 | XMS_ITS | Encounter Summary ---
Author Organization [facility] Address [address] [place] [address] Care Team Providers Care Comfort Filler Name Role Phone Alli Barbour MD Primary Care Provider +1- [phone] Encounter Details Date Type Department Care Team (Late st Contact Info) Description 11/29/2003 Outpatient [facility] [place] [address] [place] [address] Carlos Hill MD NO ADDRESS ON FILE Social History Tobacco Use Types Packs/Day Years Used Date Smoking Tobacco: Never Assessed Comments Unknown Sex and Gender Information Value Date Recorded Sex Assigned at Not on file 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
--- OUTSIDE RECORDS SUMMARY | 2025-01-10 11:40 | XMS_ITS | Encounter Summary ---
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) Social History Tobacco Use Types Packs/Day Years Used Date Smoking Tobacco: Never Assessed Comments Unknown Sex and Gender Information Value Date Recorded Sex Assigned at Not on file Legal Sex Female 5:18 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
--- OUTSIDE RECORDS SUMMARY | 2025-01-10 11:40 | XMS_ITS | Encounter Summary ---
Author Organization [facility] Address [address] [place] [address] Care Team Providers Care Wax Blender Name Role Phone Alli Barbour MD Primary Care Provider +1- [phone] Encounter Details Date Type Department Care Team (Latest Contact Info) Description 11/10/2001 Outpatient Historical [facility] [place] [address] [place] [address] Carlos Hill MD NO ADDRESS ON FILE Gynecologic examination (Primary Dx); Atrophic vaginitis Social History Tobacco Use Types Packs/Day Years Used Date Smoking Tobacco: Never Assessed Comments Unknown Sex and Gender Information Value Date Recorded Sex Assigned at Not on file Legal Sex Female 5:18 AM LAWNMOWER MECHANIC Gender Identity Not on file Sexual Orientation Not on file documented as of this encounter Plan of Treatment Not on file documented as of this encounter Visit Diagnoses Diagnosis Gynecologic examination- Primary Gynecological examination Atrophic vaginitis Postmenopausal atrophic vaginitis documented in this encounter Care Teams Wax Blender Relationship Specialty Start Date End Date Alli Barbour MD [address] [facility] 1 [place] [phone] PCP - General Family Practice 09/11/17 documented as of this encounter
--- OUTSIDE RECORDS SUMMARY | 2025-01-10 11:40 | XMS_ITS | Encounter Summary ---
Author Organization [facility] Address [address] [place] [address] Care Team Providers Care Heading Maker Name Role Phone Alli Barbour MD Primary Care Provider +1- [phone] Encounter Details Date Type Department Care Team (Latest Contact Info) Description 01/07/2003 Outpatient Historical [facility] [place] [address] [place] [address] Carlos Hill MD NO ADDRESS ON FILE SCREENING MAMM-MAILG NEOPL-OTHER (Primary Dx) Social History Tobacco Use Types Packs/Day Years Used Date Smoking Tobacco: Never Assessed Comments Unknown Sex and Gender Information Value Date Recorded Sex Assigned at Not on file Legal Sex Female 5:18 AM CHIEF TECHNOLOGY OFFICER Gender Identity Not on file Sexual Orientation Not on file documented as of this encounter Plan of Treatment Not on file documented as of this encounter Visit Diagnoses Diagnosis Other screening mammogram- Primary documented in this encounter Care Teams Heading Maker Relationship Specialty Start Date End Date Alli Barbour MD [address] [facility] [place] 1 [place] [phone] PCP - General Family Practice 09/11/17 documented as of this encounter
--- OUTSIDE RECORDS SUMMARY | 2025-01-10 11:40 | XMS_ITS | Encounter Summary ---
Author Organization [facility] Address 5 [facility] Attn: [place] [address] Care Team Providers Care Slope Hoist Operator Name Role Phone Alli Barbour MD Primary Care Provider +1- [phone] Encounter Details Date Type Department Care Team (Late st Contact Info) Description 12/21/2001 Inpatient Historical Carlos Hill MD NO ADDRESS ON FILE Social History Tobacco Use Types Packs/Day Years Used Date Smoking Tobacco: Never Assessed Comments Unknown Sex and Gender Information Value Date Recorded Sex Assigned at Not on file Legal Sex Female 5:18 AM SAMPLE TAKER OPERATOR Gender Identity Not on file Sexual Orientation Not on file documented as of this encounter Plan of Treatment Not on file documented as of this encounter Visit Diagnoses Not on filedocumented in this encounter Care Teams Slope Hoist Operator Relationship Specialty Start Date End Date Alli Barbour MD [address] [place] [address] 1 [place] [phone] PCP - General Family Practice 09/11/17 documented as of this encounter
--- OUTSIDE RECORDS SUMMARY | 2025-01-10 11:40 | XMS_ITS | Encounter Summary ---
Author Organization [facility] Address [address] [place] [address] Care Team Providers Care Gun Stocker Name Role Phone Alli Barbour MD Primary Care Provider +- [phone] Encounter Details Date Type Department Care Team (Late st Contact Info) Description 10/14/2004 Outpatient Historical [facility] Occupational Medicine-[facility] [address] [place] [address] Rober Chen MD [address] 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
--- OUTSIDE RECORDS SUMMARY | 2025-01-10 11:40 | XMS_ITS | Encounter Summary ---
Author Organization [facility] Address [address] [facility] Attn: [place] [address] Care Team Providers Care Med Admin Name Role Phone Alli Barbour MD Primary Care Provider +1- [phone] Encounter Details Date Type Department Care Team (Late st Contact Info) Description 01/25/2003 Outpatient Historical Lauri Johnson MD [address] [place] [address] ABN INVOLUN MOVEMENT NEC (Primary Dx) Social History Tobacco Use Types Packs/Day Years Used Date Smoking Tobacco: Never Assessed Comments Unknown Sex and Gender Information Value Date Recorded Sex Assigned at Not on file 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
--- OUTSIDE RECORDS SUMMARY | 2025-01-10 11:40 | XMS_ITS | Encounter Summary ---
Author Organization [facility] Address [address] [place] [address] Care Team Providers Care Rig Manager Name Role Phone Alli Barbour MD Primary Care Provider +- [phone] Encounter Details Date Type Department Care Team (Latest Contact Info) Description 11/27/2002 Outpatient Historical [facility] [address] [place] [address] Carlos Hill MD NO ADDRESS ON FILE Routine medical exam (Primary Dx); Gynecologic examination Social History Tobacco Use Types Packs/Day Years Used Date Smoking Tobacco: Never Assessed Comments Unknown Sex and Gender Information Value Date Recorded Sex Assigned at Not on file Legal Sex Female 5:18 AM FLUID POWER MECHANIC Gender Identity Not on file Sexual Orientation Not on file documented as of this encounter Plan of Treatment Not on file documented as of this encounter Visit Diagnoses Diagnosis Routine medical exam- Primary Routine general medical examination at a health care facility Gynecologic examination Gynecological examination documented in this encounter Care Teams Rig Manager Relationship Specialty Start Date End Date Alli Barbour MD [address] [phone] PCP - General Family Practice 09/11/17 documented as of this encounter
--- OUTSIDE RECORDS SUMMARY | 2025-01-10 11:40 | XMS_ITS | Encounter Summary ---
Author Organization [facility] Address [address] [place] [address] Care Team Providers Care Violent Crimes Detective Name Role Phone Alli Barbour MD Primary Care Provider +1- [phone] Encounter Details Date Type Department Care Team (Latest Contact Info) Description 03/18/2003 Outpatient Historical [facility] [address], [address] [place] [address] [place] [address] [place] [address] Skin sensation disturb (Primary Dx) Social History Tobacco Use Types Packs/Day Years Used Date Smoking Tobacco: Never Assessed Comments Unknown Sex and Gender Information Value Date Recorded Sex Assigned at Not on file 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
--- OUTSIDE RECORDS SUMMARY | 2025-01-10 11:40 | XMS_ITS | Encounter Summary ---
Author Organization [facility] Address [address] [place] [address] Care Team Providers Care Field Seismologist Name Role Phone Alli Barbour MD Primary Care Provider +- [phone] Encounter Details Date Type Department Care Team (Latest Contact Info) Description 01/08/2002 Outpatient Historical [facility] [address] [place] [address] Carlos Hill MD NO ADDRESS ON FILE SURGERY FOLLOWUP, UNSPEC (Primary Dx) Social History Tobacco Use Types Packs/Day Years Used Date Smoking Tobacco: Never Assessed Comments Unknown Sex and Gender Information Value Date Recorded Sex Assigned at Not on file 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
--- OUTSIDE RECORDS SUMMARY | 2025-01-10 11:40 | XMS_ITS | Encounter Summary ---
Author Organization [facility] Address [address] [place] [address] Care Team Providers Care Butter Production Supervisor Name Role Phone Alli Barbour MD Primary Care Provider +- [phone] Encounter Details Date Type Department Care Team (Latest Contact Info) Description 11/29/2003 Outpatient Historical [facility] [address] [place] [address] Carlos Hill MD NO ADDRESS ON FILE Routine medical exam (Primary Dx); Gynecologic examination Social History Tobacco Use Types Packs/Day Years Used Date Smoking Tobacco: Never Assessed Comments Unknown Sex and Gender Information Value Date Recorded Sex Assigned at Not on file 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
--- OUTSIDE RECORDS SUMMARY | 2025-01-10 11:40 | XMS_ITS | Clinical Summary ---
Author Organization [facility] Address [address] [facility] Attn: [place] [address] Care Team Providers Care Terra Cotta Mold Maker Name Role Phone Alli Barbour MD Primary Care Provider [phone]- [phone] Allergies No known active allergies Medications lisinopriL (PRINIVIL) 10 mg tablet Take 10 mg by mouth daily. 09/11/2017 Active atorvastatin (LIPITOR) 80 mg tablet Take 80 mg by mouth late in the day. 09/11/2017 Active escitalopram oxalate (LEXAPRO) 10 mg tablet Take 20 mg by mouth daily . 09/11/2017 Active atenoloL (TENORMIN) 25 mg tablet Take 25 mg by mouth daily. 09/11/2017 Active traZODone (DESYREL) 100 mg tablet Take 100 mg by mouth daily at bedtime. 09/11/2017 Active metFORMIN (GLUCOPHAGE) 500 mg tablet Take 500 mg by mouth 2 times daily with meals. 09/11/2017 Active gabapentin (NEURONTIN) 600 mg tablet Take 600 mg by mouth 3 times daily. 09/11/2017 Active raNITIdine (ZANTAC) 300 mg tablet Take 300 mg by mouth daily at bedtime. 09/11/2017 Active metoclopramide HCl (REGLAN) 5 mg tablet Take 5 mg by mouth 4 times daily before meals and at bedtime. 09/11/2017 Active LORazepam (ATIVAN) 1 mg tablet Take 1 mg by mouth every 6 hours as needed for Anxiety. 09/11/2017 Active ibuprofen (MOTRIN) 800 mg tablet Take 800 mg by mouth every 6 hours as needed for Pain, Mild. 09/11/2017 Active topiramate (TOPAMAX) 50 mg tablet Take 50 mg by mouth 2 times daily. 09/11/2017 Active Active Problems Problem Noted Date Diagnosed Date Closed nondisplaced fracture of medial cuneiform of right foot 04/12/2018 Tenosynovitis of right foot 03/01/2018 Primary osteoarthritis of right foot 03/01/2018 Controlled type 2 diabetes m ellitus without complication, without long-term current use of insulin 03/01/2018 Social History Tobacco Use Types Packs/Day Years Used Date Smoking Tobacco: Every Day Cigarettes Smokeless Tobacco: Never Alcohol Use Standard Drinks/Week Comments No 0 (1 standard drink = 0.6 oz pur e alcohol) Comments Unknown Sex and Gender Information Value Date Recorded Sex Assigned at Not on file Legal Sex Female 4:29 AM WIRE BENDER Gender Identity Not on file Sexual Orientation Not on file Last Filed Vital Signs Vital Sign Reading Time Taken Comments Blood Pressure 141/127 05/10/2018 1:31 PM WIRE BENDER Pulse 70 05/10/2018 1:31 PM WIRE BENDER Temperature 36.7 C (98.1 F) 09/11/2017 3:30 PM CDT Respiratory Rate 18 09/11/2017 3:30 PM CDT Oxygen Saturation - - Inhaled Oxygen Concentration - - Weight 85.3 kg (188 lb) 05/10/2018 1:31 PM WIRE BENDER Height 157.5 cm (5' 2 ) 05/10/2018 1:31 PM WIRE BENDER Body Mass Index 34.39 05/10/2018 1:31 PM WIRE BENDER Plan of Treatment Health Maintenance Due Date Last Done Comments DIABETES ANNUAL RETINAL EXAM 1977 DIABETES HBA1C Q 6 MONTHS 1977 DIABETES MICROALBUMIN ANNUAL SCREEN 1977 LDL CHOLESTEROL ANNUAL 1977 DTAP/TDAP/TD VACCINES (1 - Tdap) 1978 PNEUMOCOCCAL VACCINE 50+ YEARS (1 of 2 - PCV) 07/29/18 79 BREAST CANCER SCREENING 1999 COLORECTAL SCREENING 2004 Colorectal Cancer Screening 2004 FIT-DNA Q 3 years 2004 FIT/FOBT Q 1 year 2004 Flex Sig/CT Colonography Q 5 years 2004 ZOSTER VACCINE (1 of 2) 2009 DIABETES ANNUAL FOOT EXAM 03/07/2019 03/07/2018 OSTEOPOROSIS SCREENING 2024 INFLUENZA VACCINE (#1) 2025 RSV VACCINE (60+ or ) (1 - 1-dose 75+ series) 2034 Care Teams Terra Cotta Mold Maker Relationship Specialty Start Date End Date Alli Barbour MD [address] [phone] PCP - General Family Practice 09/11/17
--- OUTSIDE RECORDS SUMMARY | 2025-01-10 11:40 | XMS_ITS | Encounter Summary ---
Author Organization [facility] Address [address] [place] [address] Care Team Providers Care Passenger Booking Clerk Name Role Phone Alli Barbour MD Primary Care Provider +- [phone] Encounter Details Date Type Department Care Team (Latest Contact Info) Description 12/21/2001 Outpatient Historical [facility] [address] [place] [address] Carlos Hill MD NO ADDRESS ON FILE FEM PELV PERITON ADHES POSTOP/INFEC (Primary Dx); OVARIAN CYST NEC/NOS; FEMALE GENITAL SYMPTOMS NOS; DYSMENORRHEA Social History Tobacco Use Types Packs/Day Years Used Date Smoking Tobacco: Never Assessed Comments Unknown Sex and Gender Information Value Date Recorded Sex Assigned at Not on file 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 Sex Female 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 Gender Identity Not on file Sexual Orientation Not on file documented as of this encounter Plan of Treatment Not on file documented as of this encounter Visit Diagnoses Diagnosis Pelvic peritoneal adhesions, female (postoperative) (postinfection)- Primary Other and unspecified ovarian cyst Unspecified symptom associated with female genital organs Dysmenorrhea documented in this encounter Care Teams Passenger Booking Clerk Relationship Specialty Start Date End Date Alli Barbour MD [address] [facility] 1 [place] [phone] PCP - General Family Practice 09/11/17 documented as of this encounter
--- OUTSIDE RECORDS SUMMARY | 2025-01-10 11:40 | XMS_ITS | Encounter Summary ---
Author Organization [facility] Address [address] [place] [address] Care Team Providers Care Biodiesel Plant Operations Engineer Name Role Phone Alli Barbour MD Primary Care Provider +- [phone] Encounter Details Date Type Department Care Team (Late st Contact Info) Description 10/21/2004 Outpatient Historical [facility]ational [facility] [address] [place] [address] Rober Chen MD [address] [place] [address] Sprain thoracic region (Primary Dx) Social History Tobacco Use Types Packs/Day Years Used Date Smoking Tobacco: Never Assessed Comments Unknown Sex and Gender Information Value Date Recorded Sex Assigned at Not on file Legal Sex Female 5:18 AM MOLD HOLDER Gender Identity Not on file Sexual Orientation Not on file documented as of this encounter Plan of Treatment Not on file documented as of this encounter Visit Diagnoses Diagnosis Sprain thoracic region- Primary Sprain of thoracic region documented in this encounter Care Teams Biodiesel Plant Operations Engineer Relationship Specialty Start Date End Date Alli Barbour MD [address] [phone] PCP - General Family Practice 09/11/17 documented as of this encounter
--- OUTSIDE RECORDS SUMMARY | 2025-01-10 11:40 | XMS_ITS | Data Portability ---
Author Organization JUANA F[facility]ardo [facility] Address [address] [place] [address] Care Team Providers Care Internal Corrosion Specialist Name Role Phone ELISABETH FRANCIS Primary Care Provider [phone] Assessment Encounter Date Assessment Date Assessment LastModified by Organization Details LastModified Time 03/13/2024 03/13/2024 We discussed the risks and alternatives to a colonoscopy. We discussed the risks of bleeding, perforation, and sedation. She had no further questions and wishes to proceed Not available 03/13/2024 11:32:13 08/20/2024 08/20/2024 She does not want any more treatment of her onychomycosis. Not available 08/22/2024 12:33:45 10/26/2024 10/26/2024 We discussed initiating blood pressure medications. I recommended metoprolol 50 mg er. She was not ready to make a decision at this time because she wants to avoid being on more medication. Not available 10/26/2024 11:01:57 Plan of Treatment Reminders Order Date Submit Date Provider Last Modified By Organization Details Last Modified Time Details Appointments OFFICE VISIT 20 2024 08:20A M Elisabeth Francis MD Not available Not available Not available Lab CMP, serum or plasma 2024 025 [facility], [address], [facility], [place], [address], 12/31/2024 16:27:01 microalbu min/creat inine, mass ratio, urine 2023 024 SCRANTON [facility], [address], [place], [address], 03/14/2024 15:01:09 HbA1c (hemoglob in A1c), blood 2023 024 [facility] ([facility]), [address] [facility] [facility], [place], [address], 03/13/2024 12:32:03 CMP, serum or plasma 2023 024 [facility], [address] [facility], [facility] 1, [place], [address], 03/13/2024 15:26:53 lipid panel, blood 2023 024 [facility], [address] [place] [address], [facility] 1, [place], [address], 03/13/2024 15:26:55 CBC 2023 024 [facility], [address] [facility], [facility] 1, [place], [address], 03/13/2024 12:31:58 Referral gynecolog ist referral 2024 025 [email or web address] Anthony Edwards DO, [address] [place] [address], [address], 08/29/2024 10:30:30 pelvic floor therapy referral [email or web address] [place] [address] [facility], [address] [place], [address], 05/28/2024 12:09:06 Procedures colonosco py procedure (PROC) 2023 024 asurface [facility], [address] , [place], [address], 03/14/2024 11:27:29 Surgeries None recorded. Imaging None recorded. Medication Orders monteluka st 10 mg tablet 2024 025 [facility] 15, [address], [place], [address], 12/31/2024 15:31:11 terbinafi ne HCl 250 mg tablet 2023 025 [facility] 15, [address], [place], [address], 08/20/2024 10:06:56 ibuprofen 800 mg tablet 2023 024 [facility] 15, [address], [place], [address], 03/13/2024 11:34:47 topiramat e 50 mg tablet 2023 024 [facility] 15, [address], [place], [address], 03/13/2024 11:34:50 amlodipin e 10 mg tablet 2023 024 [facility] 15, [address], [place], [address], 03/13/2024 11:34:49 olmesarta n 40 mg tablet 2023 024 [facility] 15, [address], [place], [address], 03/13/2024 11:34:49 Patient TargetsNo targets recorded. 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 Referring Physician: Elisabeth Francis [facility], Encounter Date: 08/20/2024 Results Created Date Observation Date Name Description Value Unit Range Abnormal Flag Note LastModifiedBy Organization Detail LastModifiedTime 02/16/20 24 02/16/2024 urina lysis , compl ete color Not Available [facility] ([facility]) [address] [place], [address], 02/16/2024 09:28:13 02/16/20 24 02/16/2024 urina lysis , compl ete clarity clear Not Available [facility] ([facility]) [address] [place], [address], 02/16/2024 09:28:13 02/16/20 24 02/16/2024 urina lysis , compl ete glucose negati ve Not Available [facility] ([facility]) [address] [place], [address], 02/16/2024 09:28:13 02/16/20 24 02/16/2024 urina lysis , compl ete bilirubin negati ve Not Available [facility] ([facility]) [address] [place], [address], 02/16/2024 09:28:13 02/16/20 24 02/16/2024 urina lysis , compl ete ketones negati ve Not Available [facility] ([facility]) [address] [place], [address], 02/16/2024 09:28:13 02/16/20 24 02/16/2024 urina lysis , compl ete specific gravity 1.005- 1.025 Not Available [facility] ([facility]) [address] [place], [address], 02/16/2024 09:28:13 02/16/20 24 02/16/2024 urina lysis , compl ete pH 5.0-7. 0 Not Available [facility] ([facility]) [address] [place], [address], 02/16/2024 09:28:13 02/16/20 24 02/16/2024 urina lysis , compl ete protein Not Available [facility] ([facility]) [address] [place], [address], 02/16/2024 09:28:13 02/16/20 24 02/16/2024 urina lysis , compl ete uro Not Available [facility] ([facility]) [address] [place], [address], 02/16/2024 09:28:13 02/16/20 24 02/16/2024 urina lysis , compl ete nitrate negati ve Not Available [facility] ([facility]) [address] [place], [address], 02/16/2024 09:28:13 02/16/20 24 02/16/2024 urina lysis , compl ete blood negati ve Not Available [facility] ([facility]) [address] [place], [address], 02/16/2024 09:28:13 02/16/20 24 02/16/2024 urina lysis , compl ete leukocytes negati ve Not Available [facility] ([facility]) [address] [place], [address], 02/16/2024 09:28:13 02/16/20 24 02/16/2024 urina lysis , compl ete WBC 0 Not Available [facility] ([facility]) [address] [place], [address], 02/16/2024 09:28:13 02/16/20 24 02/16/2024 urina lysis , compl ete RBC 0 Not Available [facility] ([facility]) [address] [place], [address], 02/16/2024 09:28:13 02/16/20 24 02/16/2024 urina lysis , compl ete epi cells 0 Not Available [facility] ([facility]) [address] [place], [address], 02/16/2024 09:28:13 02/16/20 24 02/16/2024 urina lysis , compl ete bacteria Not Available [facility] ([facility]) [address] [place], [address], 02/16/2024 09:28:13 02/16/20 24 02/16/2024 urina lysis , compl ete other Not Available [facility] ([facility]) [address] [place], [address], 02/16/2024 09:28:13 03/13/20 24 03/13/2024 CBC WBC 9.7 x10 4.0-10 .5 Not Available [facility] [address] [facility], [place], [address], 03/13/2024 12:31:58 03/13/20 24 03/13/2024 CBC RBC 4.86 x10 3.50-5 .50 Not Available [facility] [address], [place], [address], 03/13/2024 12:31:58 03/13/20 24 03/13/2024 CBC HGB 14.5 g/dL 12.0-1 6.0 Not Available [facility] [address], [place], [address], 03/13/2024 12:31:58 03/13/2003/13/2024 CBC HCT 42.3 % 37.0-4 7.0 Not Available [facility] [address], [place], [address], 03/13/2024 12:31:58 03/13/20 24 03/13/2024 CBC MCV 87.1 fL 80.0-9 9.9 Not Available [facility] [address], [place], [address], 03/13/2024 12:31:58 03/13/20 24 03/13/2024 CBC MCH 29.8 pg 27.0-3 2.0 Not Available [facility] [address] [facility] 1, [place], [address], 03/13/2024 12:31:58 03/13/2003/13/2024 CBC MCHC 34.3 g/dL 32.0-3 6.0 Not Available [facility] [address] [facility] 1, [place], [address], 03/13/2024 12:31:58 03/13/2003/13/2024 CBC RDW 13.9 % 11.5-1 4.5 Not Available [facility] [address] [facility] 1, [place], [address], 03/13/2024 12:31:58 03/13/2003/13/2024 CBC plt 238.0 x10 140.0- 451.0 Not Available [facility] [address] [facility] 1, [place], [address], 03/13/2024 12:31:58 03/13/2003/13/2024 CBC lymphocytes % 35.3 % 20.0-5 0.0 Not Available [facility] [address] [facility] 1, [place], [address], 03/13/2024 12:31:58 03/13/20 24 03/13/2024 CBC granulcytes % 54.2 % 30.0-7 0.0 Not Available [facility] [address] [facility] [address], [place], [address], 03/13/2024 12:31:58 03/13/20 24 03/13/2024 CBC monocytes % 6.5 % 2.0-16 .0 Not Available [facility] [address] [facility] 1, [place], [address], 03/13/2024 12:31:58 03/13/20 24 03/13/2024 CBC granulcytes# 5.3 x10 Not Zainab ilable [facility] [address] [facility], [place], [address], 03/13/2024 12:31:58 03/13/20 24 03/13/2024 CBC lymphocytes # 3.4 x10 Not Available [facility] [address] [facility], [place], [address], 03/13/2024 12:31:58 03/13/20 24 03/13/2024 CBC monocytes # 0.6 x10 Not Avai lable [facility] [address] [facility] 1, [place], [address], 03/13/2024 12:31:58 03/13/20 24 03/13/2024 CMP (FEMA LE) glucose 97.0 mg/dL 60.0-9 9.0 Not Available [facility] [address] [facility] 1, [place], [address], 03/13/2024 15:26:53 03/13/20 24 03/13/2024 CMP (FEMA LE) BUN (blood urea nitrogen) 19.0 mg/dL 10.0-2 6.0 Not Available [facility] [address] [facility], [place], [address], 03/13/2024 15:26:53 03/13/20 24 03/13/2024 CMP (FEMA LE) creatinine (serum) 0.6 mg/dL 0.4-1. 5 Not Available [facility] [address] [facility] [address], [place], [address], 03/13/2024 15:26:53 03/13/20 24 03/13/2024 CMP (FEMA LE) BUN/creatini ne ratio 34.55 ratio Not Available [facility] [address] [facility] [address], [place], [address], 03/13/2024 15:26:53 03/13/20 24 03/13/2024 CMP (FEMA LE) eGFR calculated 118.3 Not Available [facility] [address] [address], [place], [address], 03/13/2024 15:26:53 03/13/20 24 03/13/2024 CMP (FEMA LE) total protein 8.0 g/dL 6.0-8. 5 Not Available [facility] [address] [address], [place], [address], 03/13/2024 15:26:53 03/13/20 24 03/13/2024 CMP (FEMA LE) total bilirubin 0.4 mg/dL 0.2-1. 3 Not Available [facility] [address] [facility] [address] [address], [place], [address], 03/13/2024 15:26:53 03/13/20 24 03/13/2024 CMP (FEMA LE) albumin 4.5 g/dL 3.5-5. 5 Not Available [facility] [address] [facility] 1, [place], [address], 03/13/2024 15:26:53 03/13/20 24 03/13/2024 CMP (FEMA LE) globulin 3.5 calc Not Available [facility] [address] [facility] 1, [place], [address], 03/13/2024 15:26:53 03/13/20 24 03/13/2024 CMP (FEMA LE) AST (SGOT) 23.0 U/L 0.0-46 .0 Not Available [facility] [address] [facility] [place] [facility] 1, [place], [address], 03/13/2024 15:26:53 03/13/20 24 03/13/2024 CMP (FEMA LE) altv (SGPT) 20.0 U/L 13.0-6 9.0 normal Not Available [facility] [address] [facility] [place] [facility] 1, [place], [address], 03/13/2024 15:26:53 03/13/20 24 03/13/2024 CMP (FEMA LE) A/G ratio 1.3 ratio Not Available [facility] [address] [facility], [place], [address], 03/13/2024 15:26:53 03/13/20 24 03/13/2024 CMP (FEMA LE) ALP phos 75.0 U/L 30.0-1 40.0 normal Not Available [facility] [address] [facility] [place] [facility] 1, [place], [address], 03/13/2024 15:26:53 03/13/20 24 03/13/2024 CMP (FEMA LE) calcium 9.8 mg/dL 8.4-10 .5 Not Available [facility] [address] [facility] [place] [facility] [address], [place], [address], 03/13/2024 15:26:53 03/13/20 24 03/13/2024 CMP (FEMA LE) sodium 143.0 mmol/ L 136.0- 145.0 Not Available [facility] [address] [facility] 1, [place], [address], 03/13/2024 15:26:53 03/13/20 24 03/13/2024 CMP (FEMA LE) potassium 3.6 mmol/ L 3.5-5. 1 Not Available [facility] [address] [facility] 1, [place], [address], 03/13/2024 15:26:53 03/13/20 24 03/13/2024 CMP (FEMA LE) chloride 111.0 mmol/ L 98.0-1 10.0 abnormal Not Available [facility] [address] [facility] 1, [place], [address], 03/13/2024 15:26:53 03/13/20 24 03/13/2024 CMP (FEMA LE) C02 27.0 mmol/ L 22.0-3 1.0 Not Available [facility] [address] [facility] 1, [place], [address], 03/13/2024 15:26:53 03/13/20 24 03/13/2024 CMP (FEMA LE) anion gap 5.0 calc Not Available [facility] [address] [facility] 1, [place], [address], 03/13/2024 15:26:53 03/13/20 24 03/13/2024 CMP (FEMA LE) osmolality 297.2 calc Not Available [facility] [address] [facility], [place], [address], 03/13/2024 15:26:53 03/13/20 24 03/13/2024 LIPID PROFI LE (FEMA LE) cholesterol 227.0 mg/dL 0.0-20 0.0 high Not Available [facility] [address] [facility] 1, [place], [address], 03/13/2024 15:26:55 03/13/20 24 03/13/2024 LIPID PROFI LE (FEMA LE) trig 269.0 mg/dL 0.0-15 0.0 high Not Available [facility] [address] [facility] 1, [place], [address], 03/13/2024 15:26:55 03/13/20 24 03/13/2024 LIPID PROFI LE (FEMA LE) HDL - direct 46.0 mg/dL >40.[address] [facility] [address] [facility] [address], [place], [address], 03/13/2024 15:26:55 03/13/20 24 03/13/2024 LIPID PROFI LE (FEMA LE) VLDL - direct 53.8 mg/dL Not Available [facility] [address] [facility] [address], [place], [address], 03/13/2024 15:26:55 03/13/20 24 03/13/2024 LIPID PROFI LE (FEMA LE) LDL - direct 127.2 mg/dL 0.0-13 0.0 Not Available [facility] [address] [facility] [address], [place], [address], 03/13/2024 15:26:55 03/13/20 24 03/14/2024 ALBUM IN, RANDO M URINE W/CRE ATINI NE creatinine, random urine 80 mg/dL 20-275 normal Not Available [facility] [address], [place], [address], 03/14/2024 15:01:09 03/13/20 24 03/14/2024 ALBUM IN, RANDO M URINE W/CRE ATINI NE albumin, urine 1.3 mg/dL see note: normal Refer ence Range : Refer ence Range Not estab lishe d Not Available [facility] [address] [place], [address], 03/14/2024 15:01:09 03/13/20 24 03/14/2024 ALBUM IN, RANDO M URINE W/CRE ATINI NE albumin/crea tinine ratio, random urine 16 mg/g_ creat <30 normal The ADA defin es abnor malit ies in album in excre tion as follo ws: Album inuri a Categ ory Resul t (mg/g creat inine ) Ashley l to Mildl y incre ased <30 Moder ately incre ased 30-29 9 Sever azael incre ased > OR = 300 The ADA recom mends that at least two of three speci mens colle cted withi n a 3-6 month perio d be abnor mal befor e consi aishwarya g a patie nt to be withi n a diagn ostic categ ory. Not Available [facility] [address] [place], [address], 03/14/2024 15:01:09 03/13/20 24 03/13/2024 HbA1c (hemo globi n A1c), blood HbA1c 6.0 Not Available [facility] ([facility]) [address] [place] [address], [address], 03/13/2024 11:39:15 01/01/20 25 12/31/2024 CMP (FEMA LE) glucose 97.0 mg/dL 60.0-9 9.0 Not Available [facility] [address] [place] [address], [address], 12/31/2024 16:27:01 01/01/20 25 12/31/2024 CMP (FEMA LE) BUN (blood urea nitrogen) 12.0 mg/dL 10.0-2 6.0 Not Available [facility] [address] [facility], [place], [address], 12/31/2024 16:27:01 01/01/20 25 12/31/2024 CMP (FEMA LE) creatinine (serum) 0.7 mg/dL 0.4-1. 5 Not Available [facility] [address] [facility] [address], [place], [address], 12/31/2024 16:27:01 01/01/20 25 12/31/2024 CMP (FEMA LE) BUN/creatini ne ratio 17.14 ratio Not Available [facility] [address] [facility] [address], [place], [address], 12/31/2024 16:27:01 01/01/20 25 12/31/2024 CMP (FEMA LE) eGFR calculated 89.3 Not Available [facility] [address] [facility], [place], [address], 12/31/2024 16:27:01 01/01/20 25 12/31/2024 CMP (FEMA LE) total protein 8.5 g/dL 6.0-8. 5 Not Available [facility] [address] [facility] [address], [place], [address], 12/31/2024 16:27:01 01/01/20 25 12/31/2024 CMP (FEMA LE) total bilirubin 0.6 mg/dL 0.2-1. 3 Not Available [facility] [address] [facility], [place], [address], 12/31/2024 16:27:01 01/01/20 25 12/31/2024 CMP (FEMA LE) albumin 4.8 g/dL 3.5-5. 5 Not Available [facility] [address] [facility] [address], [place], [address], 12/31/2024 16:27:01 01/01/20 25 12/31/2024 CMP (FEMA LE) globulin 3.7 calc Not Available [facility] [address] [facility] 1, [place], [address], 12/31/2024 16:27:01 01/01/20 25 12/31/2024 CMP (FEMA LE) AST (SGOT) 27.0 U/L 0.0-46 .0 Not Available [facility] [address] [facility] 1, [place], [address], 12/31/2024 16:27:01 01/01/20 25 12/31/2024 CMP (FEMA LE) altv (SGPT) 29.0 U/L 13.0-6 9.0 normal Not Available [facility] [address] [facility] 1, [place], [address], 12/31/2024 16:27:01 01/01/20 25 12/31/2024 CMP (FEMA LE) A/G ratio 1.3 ratio Not Available [facility] [address] [facility] 1, [place], [address], 12/31/2024 16:27:01 01/01/20 25 12/31/2024 CMP (FEMA LE) ALP phos 84.0 U/L 30.0-1 40.0 normal Not Available [facility] [address] [facility] 1, [place], [address], 12/31/2024 16:27:01 01/01/20 25 12/31/2024 CMP (FEMA LE) calcium 10.1 mg/dL 8.4-10 .5 Not Available [facility] [address] [facility], [place], [address], 12/31/2024 16:27:01 01/01/20 25 12/31/2024 CMP (FEMA LE) sodium 142.0 mmol/ L 136.0- 145.0 Not Available [facility] [address] [facility] 1, [place], [address], 12/31/2024 16:27:01 01/01/20 25 12/31/2024 CMP (FEMA LE) potassium 3.9 mmol/ L 3.5-5. 1 Not Available [facility] [address] [facility] 1, [place], [address], 12/31/2024 16:27:01 01/01/20 25 12/31/2024 CMP (FEMA LE) chloride 108.0 mmol/ L 98.0-1 10.0 normal Not Available [facility] [address] [facility] 1, [place], [address], 12/31/2024 16:27:01 01/01/20 25 12/31/2024 CMP (FEMA LE) C02 24.0 mmol/ L 22.0-3 1.0 Not Available [facility] [address] [facility] 1, [place], [address], 12/31/2024 16:27:01 01/01/20 25 12/31/2024 CMP (FEMA LE) anion gap 10.0 calc Not Available [facility] [address] [facility] 1, [place], [address], 12/31/2024 16:27:01 01/01/20 25 12/31/2024 CMP (FEMA LE) osmolality 292.9 calc Not Available [facility] [address] [facility] 1, [place], [address], 12/31/2024 16:27:01 04/03/20 24 04/03/2024 colon oscop y proce dure (PROC ) No observ ation record ed. [email or web address] [facility] [address] , [place], [address], 04/03/2024 17:58:48 01/09/20 25 01/08/2025 MAMMO , evee edwin, digit al, bilat eral No observ ation record ed. [facility] [address] [place], [address], 01/08/2025 12:27:14 Result Notes None recorded. Problems Name Problem SNOMED Code Status Onset Date Resolution Date Notes Provider Name and Address Organization Details Recorded Time Chronic obstruct nga pulmonar y disease 49259344 Active 2022 CINDY austin [facility] 11:36:36 Arthriti s 6990616 Active 2022 CINDY austin [facility] 11:36:30 Acute bronchit is 53456709 Completed 202208/17/2024 CINDY CABELLO [facility] 11:35:51 Spinal stenosis of lumbar region 56709142 Active 2023 CINDY CABELLO [facility] 11:37:09 Incontin ence of feces 83006725 Active 2023 CINDY austin [facility] 11:37:02 Urinary incontin ence 291742455 Active 2023 CINDY CABELLO [facility] 11:37:17 Onychomy cosis of toenails 099395579 Completed 202410/26/2024 AINSLEY REED [facility] 10:01:11 History of hysterec august 719682540 Completed 202208/17/2024 Hysterect rose; Abdominal ; complete; 3 11:01AM by Rebecca Mckay, Office Visit; Promoted; acuity set as *; Hysterec august; Vaginal; partial; 3 11:01AM by Rebecca Mckay, Office Visit; Promoted; acuity set as *; CINDY austin [facility] 5 11:36:58 Migraine NOS Active 2022 migraine petit; 3 11:01AM by Rebecca Mckay, Office Visit; Promoted; acuity set as *; CINDY austin [facility] 5 11:37:06 Gastroes ophageal reflux disease 117849980 Active 2022 Esophagea l Reflux; 3 11:01AM by Rebecca Mckay, Office Visit; Promoted; acuity set as *; CINDY austin [facility] 5 11:36:53 Benign essentia l hyperten tania 3799667 Active 2022 Hypertens ion; 3 11:01AM by Rebecca Mckay, Office Visit; Promoted; acuity set as *; CINDY austin [facility] 5 11:36:40 Appendec august Completed 202208/17/2024 Appendect rose; 3 11:01AM by Rebecca Mckay, Office Visit; Promoted; acuity set as *; Removal Reason: procedure CINDY austin [facility] 5 11:36:25 Esophago gastrodu odenosco py Completed 202208/17/2024 EGD 09/02/06; 11/2007; 3 11:01AM by Rebecca Mckay, Office Visit; Promoted; acuity set as *; CINDY austin [facility] 5 11:36:46 Tonsille ctomy Completed 202208/17/2024 Tonsillec august; 11:01AM by Rebecca Mckay, Office Visit; Promoted; acuity set as *; CINDY DAPHNEY austin [facility] 11:37:14 Problem Notes None recorded. Procedures Surgical History Date Name Laterality Status Provider Name and Address Organization Details Recorded Time 04/03/20 24 Colonoscopy completed CINDY DAPHNEY [facility] 04/03/2024 17:58:07 appendectomy completed Jenny Cohen [facility] 02/16/2024 09:19:10 hysterectomy completed CINDY HAMBY [facility] 08/17/2024 11:37:47 procedure on spine completed CINDY DAPHNEY [facility] 08/17/2024 11:38:13 Imaging Results None recorded. Procedure Notes None recorded. Medical Equipment None Reported. Allergies No known drug allergies Medications Name Sig Start Date Stop Date Status Note LastModified by Organization Details LastModified Time metformin 500 mg tablet TAKE 1 TABLET BY MOUTH TWICE DAILY 05/15 completed Not Available Not Available Not Available gabapenti n 600 mg tablet TAKE 1 TABLET BY MOUTH THREE TIMES DAILY 02/23 completed Not Available Not Available Not Available doxycycli ne hyclate 100 mg capsule Take 1 capsule twice a day by oral route. 05/09 completed Not Available Not Available Not Available albuterol sulfate 2.5 mg/3 mL (0.083 %) solution for nebulizat ion every 8 hours as needed active Not Available Not Available No t Available ibuprofen 800 mg tablet TAKE 1 TABLET BY MOUTH EVERY 8 HOURS NEEDED active Not Available Not Available No t Available prednison e 20 mg tablet TAKE 2 TABLETS BY MOUTH ONCE DAILY FOR 5 DAYS 03/13 completed Not Available Not Available Not Available chlorthal idone 25 mg tablet TAKE 1 TABLET BY MOUTH EVERY DAY IN THE MORNING active Not Available Not Available No t Available amlodipin e 5 mg tablet 02/15 completed Not Available Not Available Not Available Imitrex 50 mg tablet QD prn 03/13 completed Recorded 12/05/19 19 10:41AM by Elisabeth Francis MD, Office Visit; Refill Quantity : 10; Tablet; Not Available Not Available Not Available terbinafi ne HCl 250 mg tablet TAKE 1 TABLET BY MOUTH ONCE DAILY 08/20 completed nausea and diarrhea Not Available Not Available Not Available amlodipin e 10 mg tablet TAKE 1 TABLET BY MOUTH ONCE DAILY active Not Available Not Available No t Available pantopraz ole 40 mg tablet,de layed release TAKE 1 TABLET BY MOUTH TWICE DAILY 03/13 completed Not Available Not Available Not Available monteluka st 10 mg tablet Take 1 tablet every day by oral route. 2024 active Not Available Not Available Not Avai lable lorazepam 1 mg tablet QD PRN 03/13 completed Not Available Not Available Not Available albuterol sulfate HFA 90 mcg/actua tion aerosol inhaler INHALE 2 PUFFS BY MOUTH EVERY 4 HOURS NEEDED 2024 active Not Available Not Available Not Avai lable lisinopri l 40 mg tablet TAKE 1 TABLET BY MOUTH EVERY DAY 05/09 completed Not Available Not Available Not Available doxycycli ne hyclate 100 mg tablet Take 1 tablet twice a day by oral route for 7 days. 05/09 completed Not Available Not Available Not Available amoxicill in 875 mg-potass ium clavulana te 125 mg tablet TAKE 1 TABLET BY MOUTH EVERY 12 HOURS FOR 10 DAYS 02/15 completed Not Available Not Available Not Available olmesarta n 20 mg tablet Take 1 tablet every day by oral route. 05/15 completed Not Available Not Available Not Available olmesarta n 40 mg tablet TAKE 1 TABLET BY MOUTH ONCE DAILY active Not Available Not Available No t Available topiramat e 50 mg tablet TAKE 1 TABLET BY MOUTH TWICE DAILY active Not Available Not Available No t Available Flovent HFA 110 mcg/actua tion aerosol inhaler Inhale 2 puffs by mouth twice daily 2022 active Not Available Not Available Not Avai lable Aspirin EC QD 05/15 completed Not Available Not Available Not Available venlafaxi ne QD 05/15 completed vo JR/bh; Recorded 01/23/20 3:45PM by Cindy Cabello RN, Historic al Summary; Refill Quantity : 90; Capsule; Not Available Not Available Not Available lisinopri l QD 02/23 completed Recorded 01/12/20 10:18AM by Elisabeth Francis MD, Office Visit; Refill Quantity : 100; Tablet; Not Available Not Available Not Available metformin bid 02/23 completed Recorded 08/16/19 11:40AM by Elisabeth Francis MD, Office Visit; Refill Quantity : 200; Tablet; Not Available Not Available Not Available gabapenti n TID 02/23 completed vo JR/bh; 173; Recorded 07/12/19 11:27AM by Cindy Cabello RN (Authori zed through Elisabeth Francis MD), Refill Request; Refill Quantity : 270; Tablet; Not Available Not Available Not Available Trazodone QHS / HS 03/13 completed VO JR/bh; 173; Recorded 11/28/19 12:14PM by Cindy Cabello RN (Authori zed through Elisabeth Francis MD), Refill Request; Refill Quantity : 90; Tablet; Not Available Not Available Not Available amlodipin e besylate (bulk) daily 02/23 completed Recorded 08/16/19 11:43AM by Elisabeth Francis MD, Office Visit; Refill Quantity : 100; Tablet; Not Available Not Available Not Available mirabegro n ER 25 mg tablet,ex tended release 24 hr TAKE 1 TABLET BY MOUTH ONCE DAILY FOR 21 DAYS 12/31 completed made pt have diarrhea Not Available Not Available Not Available Stiolto Respimat 2.5 mcg-2.5 mcg/actua tion solution for inhalatio n daily 2021 active Recorded 04/12/20 9:43AM by Elisabeth Francis MD, Office Visit; Refill Quantity : 60; Inhalati on; Not Available Not Available Not Available Vitals Date Recorded Body height Body mass index (BMI) Body weight Oxygen saturation Oxygen saturation in Arterial blood by Pulse oximetry Heart rate Respiratory rate Body temperature Systolic And Diastolic Provider Name and Address Organization Details Last Updated DateTime 5 154.94 cm 35.6 kg/m2 85024.4 7 g 98 % 98 % 70 /min 20 /min 97.8 [degF] 132/80 mm[Hg] [facility] 5 10:05:14 Date Recorded Body height Body mass index (BMI) Body weight Body temperature Respiratory rate Heart rate Oxygen saturation Oxygen saturation in Arterial blood by Pulse oximetry Systolic And Diastolic Provider Name and Address Organization Details Last Updated DateTime 5 154.94 cm 35.4 kg/m2 11963.5 7 g 97.7 [degF] 18 /min 80 /min 98 % 98 % 144/82 mm[Hg] [facility] 5 10:07:12 Date Recorded Body height Body mass index (BMI) Body weight Oxygen saturation Oxygen saturation in Arterial blood by Pulse oximetry Heart rate Respiratory rate Body temperature Systolic And Diastolic Provider Name and Address Organization Details Last Updated DateTime 5 154.94 cm 35.3 kg/m2 50758.7 7 g 99 % 99 % 55 /min 24 /min 97.5 [degF] 142/90 mm[Hg] [facility] 5 15:18:24 Date Recorded Body height Body mass index (BMI) Body weight Oxygen saturation Oxygen saturation in Arterial blood by Pulse oximetry Heart rate Respiratory rate Body temperature Systolic And Diastolic Provider Name and Address Organization Details Last Updated DateTime 4 154.94 cm 35.7 kg/m2 19306.9 6 g 98 % 98 % 72 /min 24 /min 98.1 [degF] 164/92 mm[Hg] [facility] 4 11:16:34 Date Recorded Body height Body mass index (BMI) Body weight Oxygen saturation Oxygen saturation in Arterial blood by Pulse oximetry Heart rate Respiratory rate Body temperature Systolic And Diastolic Provider Name and Address Organization Details Last Updated DateTime 4 154.94 cm 35.1 kg/m2 15002.1 8 g 97 % 97 % 64 /min 20 /min 98 [degF] 132/84 mm[Hg] CINDY DAPHNEY [facility] 4 11:07:49 Social History Question Answer Notes LastModified by [facility] Details LastModified Time Tobacco Smoking Status Former Smoker quit smoking 04/2025 pt vapes 3 to 4 times a day AINSLEY austin [facility] 12/31/2024 15:11:30 Are You Blind Or Do You Have Difficulty Seeing? No Information not available 12/31/2024 Are You Deaf Or Do You Have Serious Difficulty Hearing? No Information not available 12/31/2024 What Was The Date Of Your Most Recent Tobacco Screening? 12/31/2024 Information not available 12/31/2024 What Is Your Relationship Status? Information not available 05/09/2023 Do You Have Difficulty Walking Or Climbing Stairs? No Information not available 12/31/2024 Sex: Unknown Functional Status Question Answer Note LastModified by [employer] ion Details LastModified Time Do you use any illicit or recreational drugs? No Information not available 05/09/2023 What is your level of alcohol consumption? None Information not available 05/09/2023 Are you able to walk? YESWOREST Information not available 12/31/2024 Do you have difficulty doing errands alone? No Information not available 12/31/2024 Are you able to care for yourself? Yes Information n ot available 05/09/2023 Do you have difficulty dressing or bathing? No Information not available 12/31/2024 Mental Status Question Answer Note LastModified by Organization D etails LastModified Time Do you have difficulty concentrating, remembering or making decisions? No Information no t available 12/31/2024 Family History Nothing Reported Notes:ACUTE MYOCARDIAL INFAR CTION; her father: Denied Diabetes mellitus, Type II: Mother Father: Hypertension, Lung Cancer Maternal Aunt: Arthritis Mother: Arthritis, Hypertension, Diabetes: Denied Myocardial infarction: Father Paternal Aunt: Breast Cancer Paternal Uncle: Tremor, Parkinson's Disease Sister: Hypertension, Diabetes: Denied Medical History No medical history recorded. Gynecological HistoryNo gynecological history recorded. Obstetrics History GPAL:G 0 P 0 0 0 0 Immunizations Vaccine Type Date Status Note Provider Nam e and Address Organization Details Recorded Time COVID-19, mRNA, LNP-S, PF, 100 mcg/0.5mL dose or 50 mcg/0.25mL dose 03/20/2021 completed ABHILASH VEE [address], [phone], [facility] 09/07/2023 10:05:53 COVID-19, mRNA, LNP-S, PF, 100 mcg/0.5mL dose or 50 mcg/0.25mL dose 05/15/2021 completed ABHILASH VEE [facility] [address] [place] [address], [phone], [facility] 09/07/2023 10:05:53 Tdap 10/18/2014 completed Not Available [facility] 01/29/2023 02:24:51 Past Encounters Encounter ID Performer Location Encounter Start Date Encounter Closed Date Diagnosis/Indication Diagnosis SNOMED-CT Code Diagnosis ICD10 Code Diagnosis Note [id number] Jorden Albrecht MD [facility] ([facility]) [address] [place] [address] 02/23/2023 16:44:02 02/23/2023 17:56:15 Acute bronchitis 69671444 J20.9 Based on shortness of breath and increased sputum production , we will treat with antibiotic s and steroids. Patient was encouraged to continue to use inhalers and albuterol as needed. [id number] Jorden Albrecht MD [facility] ([facility]) [address] [place] [phone] 04/21/2023 11:17:41 04/21/2023 15:28:50 Bronchitis 56770953 J40 We will go ahead and retreat with Doxy and prednisone at this time. Chronic ob structive pulmonary disease 06290895 J44.9 Likely not controllin g her baseline symptoms well with Stiolto alone. We will add steroid inhaler to complete triple therapy. Has a follow-up appointmen t in May with PCP. This will be a good time to readdress and reevaluate her symptoms. [id number] Elisabeth Francis MD [facility] ([facility]) [address] [place] [phone] 05/09/2023 13:37:13 05/09/2023 16:07:01 Chronic obstructive pulmonary disease 42140083 J44.9 Essential hypertension 78441396 I10 [id number] EDIE ANDERSON [facility] ([facility]) [address] [place] [phone] 09/07/2023 08:22:21 09/07/2023 10:28:31 Sore throat 488989075 J02.9 Acute non- suppurative otitis media of right ear 4999423366 562965 H65.610 [id number] Jorden Albrecht MD [facility] ([facility]) [address] [place] [id number] 02/16/2024 09:01:01 02/16/2024 12:17:04 Dysuria 32350449 R30.0 Urinary incontinence 165 586177 R32 Spinal wesley nosis of lumbar region 51576813 M48.061 Exhibiting signs of potential spinal stenosis and given her history, I would recommend a stat MRI with and without contrast. Encouraged emergency room visit if symptoms significan tly worsen. Incontinence of feces 72 908956 R15.9 [id number] Elisabeth Francis MD [facility] ([facility]) [address] [place] [phone] 03/13/2024 10:39:42 03/13/2024 11:45:15 Incontinence of feces 54276141 R15.9 Essential hypertension 50506313 I10 Migraine 95496164 G43.90 9 Arthritis 7101659 M19.90 Screening for malignant neoplasm of colon 734651074 Z12.11 Hyperglycemia 55174965 R 73.9 Type 2 miguel a betes mellitus 42042523 E11.9 [id number] Elisabeth Francis MD [facility] ([facility]) [address] [place] [phone] 05/15/2024 10:51:42 05/15/2024 11:48:31 Benign essential hypertension 8280850 I10 Incontinence of feces 72 090556 R15.9 Urinary incontinence 165 727556 R32 Onychomyco sis of toenails 850878699 B35.1 [id number] Elisabeth Francis MD [facility] ([facility]) [address] [place] [phone] 08/20/2024 09:36:20 08/20/2024 13:03:08 Urinary incontinence 560232931 R32 Incontinence of feces 72 147106 R15.9 Onychomyco sis of toenails 457485667 B35.1 Chronic ob structive pulmonary disease 97742073 J44.9 [id number] Elisabeth Francis MD [facility] ([facility]) [address] [place] [phone] 10/26/2024 09:34:08 10/26/2024 11:30:58 Chronic obstructive pulmonary disease 33279686 J44.9 Incontinence of feces 72 618523 R15.9 Urinary incontinence 165 166150 R32 Benign ess ential hypertension 5410868 I10 Acute migraine 554631218 1 85728 G43.602 [id number] Elisabeth Francis MD [facility] ([facility]) [address] [place] [id number] 12/31/2024 14:17:16 12/31/2024 15:38:14 Benign essential hypertension 6156763 I10 Chronic cough 23474680 R 05.3 Health Concerns Section Related Observation LastModified by Organization Detai ls LastModified Time None Recorded Concern Status LastModified by Organization Details LastModified Time None Recorded Advance Directives Directive None Recorded Payers Insurance Date Sequence Insurance Name Policy Number Policy Hernandez Covered Member ID Hernandez Member ID Guarantor Name 05/05/2023 2 [facility] (PPO) Mary Ann Donohue [id number] Mary Ann Donohue 08/20/2024 2 [facility] Mary Ann Donohue [id number] Mary Ann Donohue 05/05/2023 2 [facility] (PPO) Mary Ann Donohue [id number] Mary Ann Donohue 12/28/2024 [place] - [id number] (MEDICARE) Mary Ann Donohue [id number] Mary Ann Donohue 10/26/2024 2 [place] Mary Ann Donohue [id number] Mary Ann Donohue 01/01/2025 1 [facility] (MEDICARE REPLACEMENT/ADV ANTAGE - PPO) [id number] Mary Ann Donohue [id number] Mary Ann Donohue Notes Date Note Type Note Provider Name and Address Organization Details Recorded Time 4 text/html Pt was seen at the walk in by Dr Albrecht due to urinary and stool incontinence with severe back pain on 02/16/24 Pt then went to ER and had a MRI she was told it was clear and no tumors on her spine. Pt states she is still having the incontinence with urine and stool she is still having the back pain it is not as bad as it was but still hurts on the left lower hip area. Pt states her Bp has been running high 174/103, 144/84, the highest it has been was 206/122 Elisabeth Francis MD [address] [place] [address], [phone], [facility] 03/13/2024 11:40:54 4 text/html Hypertension F/UReported bypatient.Medications:michael ing medications as directed; no side effects from medication Associated Symptoms:no dizziness; no lightheadedness; no chest pain; no palpitations; no edema;shortness of breath;headache 2 month follow up. Last visit pts Olmesartan was increased Pt stated that she is still having problems with incontinence of urine and feces, and her symptoms are worsening. She is wondering about if she needs a referral to a urologist Eilsabeth Francis MD [address] [place] [address], [phone], [facility] 05/15/2024 11:47:05 5 text/html IncontinenceReported bypatient.Quality:mixed incontinence Severity:moderate Duration:intermittent Context:aging; COPD Aggravating Factors:coughing or sneezing Alleviating Factors:pelvic floor muscle exercises Associated Symptoms:no abdominal pain; no back pain Last visit pt was referred to pelvic floor therapy. Pt has been going to therapy and has not noticed any difference.Pt stated that she is still having problems with incontinence of urine and feces, and her symptoms are about the same.Pt quit taking the terbinafine because she was having nausea and diarrhea. Elisabeth Francis MD [address] [place] [address], [phone], [facility] 08/22/2024 12:34:14 5 text/html IncontinenceReported bypatient.Quality:mixed incontinence Severity:moderate Duration:intermittent Context:aging; COPD Aggravating Factors:coughing or sneezing Alleviating Factors:pelvic floor muscle exercises Associated Symptoms:no abdominal pain; no back pain Last visit pt was referred to pelvic floor therapy. Pt has been going to therapy and has not noticed any difference.Pt stated that she is still having problems with incontinence of urine and feces, and her symptoms are about the same. Pt will be having [employer] in [place] with Dr Edwards on 11/15/24Pt states she has not been feeling well her Bp has been running high 236/131 on Easter she been under more stress, 159/96, 152/103, 179/103 and this AM it was 152/103.Recheck[facility] her machine at [facility] today it was 147/84 and office check was 144/82. Pt has a migraine today Elisabeth Francis MD [address] [place] [address], [phone], [facility] 10/26/2024 11:03:55 5 text/html Pt will go 01/18/25 to get the Interstim device at [place], Dr Anthony Edwards. Pt states her Bp this AM 142/96, Pt has been having headaches. Pt states her diastolic runs in the 80s, low 90s Pt has been fighting a cold for the last 3 weeks. Pt has a cough, SOB, coughing up green sputum. Pt is under more stress with her sister, she feels like that is why her Bp is high. Elisabeth Francis MD [address] [place] [address], [phone], [facility], [facility] 12/31/2024 15:36:31 OBGyn Episode No OBEpisode recorded.
--- OUTSIDE RECORDS SUMMARY | 2025-01-10 11:40 | XMS_ITS | Encounter Summary ---
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
--- OUTSIDE RECORDS SUMMARY | 2025-01-10 11:40 | XMS_ITS | Encounter Summary ---
Author Organization [facility] Address [address] [place] [address] Care Team Providers Care Limehouse Worker Name Role Phone Alli Barbour MD Primary Care Provider [phone]- [phone] Encounter Details Date Type Department Care Team (Latest Contact Info) Description 01/07/2003 Outpatient Historical [facility] [place] [address] [place] [phone] Andra Simental MD NO ADDRESS ON FILE SCREENING MAMM-MAILG NEOPL-OTHER (Primary Dx) Social History Tobacco Use Types Packs/Day Years Used Date Smoking Tobacco: Never Assessed Comments Unknown Sex and Gender Information Value Date Recorded Sex Assigned at Not on file 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
--- OUTSIDE RECORDS SUMMARY | 2025-01-10 11:40 | XMS_ITS | Encounter Summary ---
Author Organization [facility] Address [address] [place] [address] Care Team Providers Care Brazer Assembler Name Role Phone Alli Barbour MD Primary Care Provider +- [phone] Encounter Details Date Type Department Care Team (Latest Contact Info) Description 12/26/2001 Outpatient Historical [facility] [place] [address] [place] [address] Carlos Hill MD NO ADDRESS ON FILE SURGERY FOLLOWUP, UNSPEC (Primary Dx) Social History Tobacco Use Types Packs/Day Years Used Date Smoking Tobacco: Never Assessed Comments Unknown Sex and Gender Information Value Date Recorded Sex Assigned at Not on file 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
--- OUTSIDE RECORDS SUMMARY | 2025-01-10 11:40 | XMS_ITS | Clinical Summary ---
Author Organization [facility] Address [address] [facility] [address] [place] [address] Phone Care Team Providers Care Catering Service Manager Name Role Phone Alli Barbour MD Primary Care Provider +1- [phone] Allergies No known active allergies Medications escitalopram oxalate (LEXAPRO) 10 mg tablet Take 20 mg by mouth daily . Active atenolol (TENORMIN) 25 mg tablet Take 25 mg by mouth daily. Active atorvastatin (LIPITOR) 80 mg tablet Take 80 mg by mouth late in the day. Active gabapentin (NEURONTIN) 600 mg tablet Take 600 mg by mouth 3 times daily. Active ibuprofen (MOTRIN) 800 mg tablet Take 800 mg by mouth every 6 hours as needed for Pain, Mild. Active lisinopril (PRINIVIL) 10 mg tablet Take 10 mg by mouth daily. Active LORazepam (ATIVAN) 1 mg tablet Take 1 mg by mouth every 6 hours as needed for Anxiety. Active metFORMIN (GLUCOPHAGE) 500 mg tablet Take 500 mg by mouth 2 times daily with meals. Active metoclopramide HCl (REGLAN) 5 mg tablet Take 5 mg by mouth 4 times daily before meals and at bedtime. Active raNITIdine (ZANTAC) 300 mg tablet Take 300 mg by mouth daily at bedtime. Active topiramate (TOPAMAX) 50 mg tablet Take 50 mg by mouth 2 times daily. Active traZODone (DESYREL) 100 mg tablet Take 100 mg by mouth daily at bedtime. 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 Gender Identity Not on file Sexual Orientation Not on file Last Filed Vital Signs Vital Sign Reading Time Taken Comments Blood Pressure 141/127 05/10/2018 1:31 PM FLEXBOARD OPERATOR Pulse 70 05/10/2018 1:31 PM FLEXBOARD OPERATOR Temperature 36.7 C (98.1 F) 09/11/2017 3:30 PM CDT Respiratory Rate 18 09/11/2017 3:30 PM CDT Oxygen Saturation 95% 09/11/2017 3:30 PM CDT Inhaled Oxygen Concentration - - Weight 85.3 kg (188 lb) 05/10/2018 1:31 PM FLEXBOARD OPERATOR Height 157.5 cm (5' 2 ) 05/10/2018 1:31 PM FLEXBOARD OPERATOR Body Mass Index 34.39 05/10/2018 1:31 PM FLEXBOARD OPERATOR Plan of Treatment Health Maintenance Due Date [...] ) (1 - 1-dose 75+ series) 2034 Insurance Care Teams Catering Service Manager Relationship Specialty Start Date End Date Alli Barbour MD [address] [phone] PCP - General Family Practice 09/11/17
--- OUTSIDE RECORDS SUMMARY | 2025-01-10 11:40 | XMS_ITS | Encounter Summary ---
Author Organization [facility] Address [address] [place] [address] Care Team Providers Care Divinity Professor Name Role Phone Alli Barbour MD Primary Care Provider [phone]- [phone] Encounter Details Date Type Department Care Team (Latest Contact Info) Description 11/20/2001 Outpatient Historical [facility] [address] [place] [address] Carlos Hill MD NO ADDRESS ON FILE FEMALE GENITAL SYMPTOMS NOS (Primary Dx) Social History Tobacco Use Types Packs/Day Years Used Date Smoking Tobacco: Never Assessed Comments Unknown Sex and Gender Information Value Date Recorded Sex Assigned at Not on file 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
--- OUTSIDE RECORDS SUMMARY | 2025-01-10 11:40 | XMS_ITS | Encounter Summary ---
Author Organization [facility] Address [address] [place] [address] Care Team Providers Care Carriage Feeder Name Role Phone Alli Barbour MD Primary Care Provider [phone]- [phone] Encounter Details Date Type Department Care Team (Late st Contact Info) Description 11/27/2002 Outpatient [facility] [address] [place] [address] Carlos Hill MD NO ADDRESS ON FILE Social History Tobacco Use Types Packs/Day Years Used Date Smoking Tobacco: Never Assessed Comments Unknown Sex and Gender Information Value Date Recorded Sex Assigned at Not on file 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
--- OUTSIDE RECORDS SUMMARY | 2025-01-10 11:40 | XMS_ITS | Encounter Summary ---
Author Organization 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
--- NOTE | 2025-01-10 11:41 | ECG_ITS ---
[facility] Test Date: 2025-01-10 Pat Name: Mary Ann Donohue Department: Room: Gender: Female Zanjero: : 1960 Requested By: Jamila Ellis Order Number: [id number] Dottie MD: Seda Dia M.D. Measurements Intervals [place] Rate: 75 P: 57 MD: 148 QRS: 9 QRSD: 94 T: 76 QT: 359 QTc: 403 Interpretive Statements SINUS RHYTHM NONSPECIFIC T-WAVE ABNORMALITY Compared to ECG 12/02/2021 22:46:49 Sinus bradycardia no longer present T-wave abnormality still present Electronically Signed On 01-11-2025 15:22:12 CDT by Seda Dia M.D. [email or web address]
--- NOTE | 2025-01-10 12:06 | XR_ITS ---
WS: [id number] Exam: XR chest 1V portable [id number] Date/Time of Exam: 01/10/2025 12:07 PM Reason For Exam: HYPERTENSION Comparison 12/02/2021. Lungs are fully expanded and clear. Normal cardiomediastinal silhouette and regional bony elements. No pleural effusion. XR/XR chest 1V portable [id number] IMPRESSION: 1. Normal chest.
--- NOTE | 2025-01-10 12:11 | W.ED.ARRPALP ---
HPI - Arrhythmia/Palpitations General: Chief Complaint: Arrhythmia/Palpitations Stated Complaint: high bp, dizzy, numbess Time Seen by Provider: 01/10/25 11:34 History of Present Illness: 64-year-old female with a history of hypertension, obesity, diabetes and anxiety and depression who presents the emergency room with complaints of high blood pressure, dizziness, hand numbness. She had an episode a couple of days ago. She said at that time she felt lightheaded. She said this eventually resolved and she felt better yesterday but this morning she developed symptoms again. She says both times her blood pressure has been elevated but then resolved. On presentation here she initially appears quite anxious according to triage but when I see her she appears much more relaxed and her blood pressure has improved some. She says her blood pressure was quite elevated at home. She had some tightness in her chest. She said today she felt more spinning type dizzy but also lightheaded as well. Some numbness around her mouth. Numbness in her fingers. Related Data Home Medications ?Medication ?Instructions ?Recorded ?Confirmed gabapentin 600 mg tablet 600 mg PO TID 10/16/19 12/03/21 lorazepam 1 mg tablet 1 mg PO DAILY PRN Anxiety 10/16/19 12/03/21 metformin 500 mg tablet 500 mg PO BID PRN blood sugar 10/16/19 12/03/21 sumatriptan succinate 25 mg tablet 25 mg PO Q2H PRN Migraine Headache 10/16/19 12/03/21 acetaminophen 500 mg tablet 500 - 1,000 mg PO BID PRN Fever 04/11/20 12/03/21 albuterol sulfate 90 mcg/actuation 1 inh inhalation QID PRN Shortness 04/11/20 12/03/21 aerosol inhaler Of Breath atorvastatin 80 mg tablet 80 mg PO BEDTIME 04/11/20 12/03/21 guaifenesin 600 mg tablet, 600 mg PO Q12H PRN Congestion 04/11/20 12/03/21 extended release 12 hr (Mucinex) topiramate 50 mg tablet 50 mg PO BID 04/11/20 12/03/21 trazodone 100 mg tablet 100 mg PO BEDTIME 04/11/20 12/03/21 venlafaxine 150 mg 150 mg PO DAILY 04/11/20 12/03/21 capsule,extended release 24 hr ibuprofen 800 mg tablet 800 mg PO Q8H PRN Pain 12/03/21 12/03/21 Held on 12/05/21. Instructions: Resume on 12/18/21. tiotropium 2.5 mcg-olodaterol 2.5 1 inh inhalation DAILY 12/03/21 12/03/21 mcg/actuation mist for inhalation (Stiolto Respimat) Previous Rx's ?Medication ?Instructions ?Recorded albuterol sulfate 2.5 mg/3 mL 2.5 mg (3 mL) inhalation Q4H PRN 04/06/20 (0.083 %) solution for nebulization shortness of breath or wheezing #90 mL Sole Supports #1 ea 05/06/20 amlodipine 5 mg tablet 5 mg PO DAILY #10 tabs 12/05/21 clonidine HCl 0.1 mg tablet 0.1 mg PO Q8H PRN hypertensive 01/10/25 emergency #20 tabs Allergies Allergy/AdvReac Type Severity Reaction Status Date / Time No Known Allergies Allergy Verified 12/02/21 17:16 Review of Systems Narrative: Constitutional symptoms: Negative except as documented in HPI. Skin symptoms: Negative except as documented in HPI. Eye symptoms: Negative except as documented in HPI. ENMT symptoms: Negative except as documented in HPI. Respiratory symptoms: Negative except as documented in HPI. Cardiovascular symptoms: Negative except as documented in HPI. Gastrointestinal symptoms: Negative except as documented in HPI. Genitourinary symptoms: Negative except as documented in HPI. Musculoskeletal symptoms: Negative except as documented in HPI. Neurologic symptoms: Negative except as documented in HPI. Psychiatric symptoms: Negative except as documented in HPI. Endocrine symptoms: Negative except as documented in HPI. PFSH ED PFSH: Medical History (Updated 01/10/25 @ 13:08 by Jamila Hernandez MD) COPD (chronic obstructive pulmonary disease) Pneumonia due to COVID-19 virus Hypertension COPD (chronic obstructive pulmonary disease) Diabetes Tumor Surgical History H/O: hysterectomy History of appendectomy Hx of tonsillectomy Social History Smoking and tobacco/nicotine status: current every day tobacco/nicotine user Physical Exam Narrative: EXAM NARRATIVE: General: Alert, no acute distress. Skin: Warm, dry. Head: Normocephalic, atraumatic. Neck: Supple, trachea midline. Eye: Extraocular movements are intact. Ears, nose, mouth and throat: mucosa moist. Cardiovascular: Regular, Normal peripheral perfusion. Respiratory: Lungs are clear to auscultation, respirations are non-labored, breath sounds are equal, Symmetrical chest wall expansion. Gastrointestinal: Soft, Nontender, Non distended Musculoskeletal: Normal ROM, no deformity. Neurological: Alert and oriented, No focal neurological deficit observed. Psychiatric: Cooperative, appropriate mood & affect. Course Vital Signs: Vital signs: Vital Signs Pulse Rate 61 01/10/25 12:29 Respiratory Rate 16 01/10/25 11:38 Blood Pressure 163/93 01/10/25 12:29 Pulse Oximetry 96 01/10/25 12:29 Oxygen Delivery Me thod Room Air 01/10/25 12:29 MDM - Arrhythmia/Palpitations Medical Decision Making Medical decision making: Differential diagnosis including but not limited to and based on the above HPI, review of systems and physical exam: Patient presents with hypertension: Essential hypertension. Stroke. acute coronary syndrome. kidney failure. congestive heart failure. anxiety. Orders placed to evaluate differential diagnosis based on the above differential, HPI and physical exam EKG: Time 1141. Rate 75. Normal sinus rhythm, nonspecific ST-T changes, no ectopy, normal MA & QRS intervals, This was reviewed and interpreted by myself the ER physician at 1145. Chest x-ray: No acute process. No infiltrate. No pneumothorax. This was reviewed and interpreted by myself the emergency room physician. I also reviewed the radiology report. CT head: No acute intracranial process. no intracranial hemorrhage, no evidence of infarct. no evidence of acute fracture.This was reviewed and interpreted by myself the ER physician. Lab Review: Laboratory results were reviewed and interpreted by myself the emergency room physician. No leukocytosis. No anemia. No renal failure. No urinary tract infection. Serial troponins are negative. I reviewed the patient's medical record. Reexamination: Patient says she feels much better at this point. Blood pressure is improved. We discussed findings at length. She is going to follow-up with her primary care provider. I did call her in some clonidine. No increased work of breathing. No oxygen requirements. No altered mental status. Assessment and plan: Hypertension ? Possibly anxiety related. Has improved spontaneously. - Discharged home - Discussed plan with patient. Answered any questions. - Evaluation and treatment of this problem were appropriate in the emergency setting. Lab Data 01/10/25 11:53 01/10/25 12:35 Radiology Impressions Chest X-Ray 01/10/25 12:06 IMPRESSION: 1. Normal chest. Head CT 01/10/25 12:12 IMPRESSION: 1. Unremarkable noncontrast CT scan of the brain. 2. Small retention cysts in the bilateral maxillary sinuses. Laboratory Results WBC 8.60 10^3/uL (3.29-11.43) 01/10/25 11:53 RBC 5.24 10^6/uL (3.85-5.65) 01/10/25 11:53 Hgb 15.40 g/dL (11.27-16.99) 01/10/25 11:53 Hct 46.6 % (36-47) 01/10/25 11:53 MCV 88.9 fl (85-98) 01/10/25 11:53 MCH 29.4 pg (27-33) 01/10/25 11:53 MCHC 33.0 g/dL (30-55) 01/10/25 11:53 RDW 13.3 % (12.1-15.1) 01/10/25 11:53 Plt Count 233 10^3/cmm (157-399) 01/10/25 11:53 MPV 10.2 fL (7.4-10.4) 01/10/25 11:53 Neut % (Auto) 56.8 % 01/10/25 11:53 Lymph % (Auto) 33.8 % 01/10/25 11:53 [place] % (Auto) 5.6 % 01/10/25 11:53 Eos % (Auto) 2.7 % 01/10/25 11:53 Baso % (Auto) 0.6 % 01/10/25 11:53 Neut # (Auto) 4.89 10^3/uL (1.8-7.7) 01/10/25 11:53 Lymph # (Auto) 2.9 10^3/uL (0.8-4.8) 01/10/25 11:53 [place] # (Auto) 0.5 10^3/uL (0.2-0.9) 01/10/25 11:53 Eos # (Auto) 0.2 10^3/uL (0.0-0.8) 01/10/25 11:53 Baso # (Auto) 0.1 10^3/uL (0.0-0.1) 01/10/25 11:53 Nucleated RBC % (auto) 0 % 01/10/25 11:53 Nucleated RBCs # 0.0 /100WBC 01/10/25 11:53 Sodium 140 mmol/L (136-145) 01/10/25 12:35 Potassium 3.6 mmol/L (3.5-5.1) 01/10/25 12:35 Chloride 109 mmol/L (98-107) H 01/10/25 12:35 Carbon Dioxide 18 mmol/L (22-29) L 01/10/25 12:35 Anion Gap 16.6 (5-19) 01/10/25 12:35 BUN 12 mg/dL (8-23) 01/10/25 12:35 Creatinine 0.4 mg/dL (0.5-0.9) L 01/10/25 12:35 GFR Calculation 160.2 mL/min (90-130) H 01/10/25 12:35 Glucose 90 mg/dL (65-115) 01/10/25 12:35 Calculated Osmolality 289 mOsm/kg (285-295) 01/10/25 12:35 Calcium 9.0 mg/dL (8.5-10.5) 01/10/25 12:35 Total Bilirubin 0.4 mg/dL (0.15-1.2) 01/10/25 12:35 AST 15 U/L (0-32) 01/10/25 12:35 ALT 15 U/L (0-33) 01/10/25 12:35 Alkaline Phosphatase 89 U/L (35-105) 01/10/25 12:35 Troponin T Baseline < 6 ng/L (0-10) 01/10/25 11:53 Total Protein 7.2 g/dL (6.6-8.7) 01/10/25 12:35 Albumin 4.1 g/dL (3.5-5.2) 01/10/25 12:35 Globulin 3.1 g/dL (1.3-4.6) 01/10/25 12:35 Urine Color Yellow (Yellow) 01/10/25 11:52 Urine Appearance Clear (CLEAR) 01/10/25 11:52 Urine pH 8.0 (5-7) A 01/10/25 11:52 Ur Specific [place] 1.006 (1.005-1.030) 01/10/25 11:52 Urine Protein Negative (Negative) 01/10/25 11:52 Urine Glucose (UA) Negative (Normal) 01/10/25 11:52 Urine Ketones Negative (Negative) 01/10/25 11:52 Urine Blood Negative (Negative) 01/10/25 11:52 Urine Nitrate Negative (Negative) 01/10/25 11:52 Urine Bilirubin Negative (Negative) 01/10/25 11:52 Urine Urobilinogen 0.2 mg/dL (Negative) 01/10/25 11:52 Ur Leukocyte Esterase Negative (Negative) 01/10/25 11:52 Urine RBC 0-2 /hpf (0-2) 01/10/25 11:52 Urine WBC 0-5 /hpf (0-5) 01/10/25 11:52 Ur Squamous Epith Cells 0-5 /hpf (0-5) 01/10/25 11:52 Amorphous Sediment Not Reportable 01/10/25 11:52 Urine Bacteria None seen /hpf (NONE) 01/10/25 11:52 Hyaline Casts 0-4 /lpf H 01/10/25 11:52 All radiology interpretation(s) finalized by discharge Discharge Plan Discharge Patient Disposition: Home Clinical Impression: Hypertension Condition: Stable Prescriptions: New clonidine HCl 0.1 mg tablet 0.1 mg PO Q8H PRN (Reason: hypertensive emergency) Qty: 20 0RF Rx Instructions: For Systolic >185 diastolic >100 No Action (DME) Sole Supports See Rx Instructions .ROUTE .MEDSUPPLY Qty: 1 0RF Rx Instructions: As directed albuterol sulfate 2.5 mg /3 mL (0.083 %) solution for nebulization 2.5 mg INHALATION Q4H PRN (Reason: shortness of breath or wheezing) Qty: 90 0RF gabapentin 600 mg Tablet 600 mg PO TID metformin 500 mg Tablet 500 mg PO BID PRN (Reason: blood sugar) sumatriptan succinate 25 mg Tablet 25 mg PO Q2H PRN (Reason: Migraine Headache) lorazepam 1 mg Tablet 1 mg PO DAILY PRN (Reason: Anxiety) atorvastatin 80 mg tablet 80 mg PO BEDTIME venlafaxine 150 mg capsule,extended release 24hr 150 mg PO DAILY acetaminophen 500 mg Tablet 500 - 1,000 mg PO BID PRN (Reason: Fever) trazodone 100 mg tablet 100 mg PO BEDTIME albuterol sulfate 90 mcg/actuation Hfa Aerosol Inhaler 1 inh INHALATION QID PRN (Reason: Shortness Of Breath) topiramate 50 mg tablet 50 mg PO BID guaifenesin [Mucinex] 600 mg Tablet Extended Release 12hr 600 mg PO Q12H PRN (Reason: Congestion) ibuprofen 800 mg tablet 800 mg PO Q8H PRN (Reason: Pain) Stiolto Respimat 2.5-2.5 mcg/actuation mist 1 inh INHALATION DAILY amlodipine 5 mg tablet 5 mg PO DAILY Qty: 10 0RF Discharge Orders: Discharge ED (Routine); Ordered 01/10/25 Ordered By: Jamila Hernandez Discharge Diet: Usual diet Discharge Activity: Increase activity as tolerated Patient Instructions: Hypertension (ED), Opioid Safety, Pain Management, Patient Portal & [facility] Instructions Activity Restrictions/Additional Instructions: Thank you for choosing [facility] for your healthcare needs today. You have been screened and evaluated and felt safe for discharge. Health conditions do change or evolve sometimes and as such it is important that you follow up with your Primary Doctor to be re checked, 3-5 days is a general good time frame for follow up. You are always welcome to return to the ED for re assessment if your symptoms are worsening or you have new concerns Print Language: Maori Coding Level of Care Code ED Co Director for Carina White
--- NOTE | 2025-01-10 12:12 | CT_ITS ---
WS: [id number] Exam: CT head wo con* [id number] Date/Time of Exam: 01/10/2025 12:29 PM Reason For Exam: htn, headache, dizzy DLP: 1317.[address] scans at [facility] use at least one of these dose optimization techniques: automated exposure control; mA and/or kV adjustment per patient size (includes targeted exams where dose is matched to clinical indication); or iterative reconstruction. No sign of acute intracranial bleed or space-occupying mass. The ventricles and basal cisterns are unremarkable in appearance. No extra-axial fluid collections. The skull is intact. The mastoids are clear. Small retention cysts in both maxillary sinuses. Normal orbits and optic globes. CT/CT head wo con* [id number] IMPRESSION: 1. Unremarkable noncontrast CT scan of the brain. 2. Small retention cysts in the bilateral maxillary sinuses.
[2025-01-10 12:14] LABS: Hematocrit 46.6 % (36-47); Hemoglobin 15.40 g/dL (11.27-16.99); Mean Corpuscular HGB Conc 33.0 g/dL (30-55); Mean Corpuscular Hemoglobin 29.4 pg (27-33); Mean Corpuscular Volume 88.9 fl (85-98); Nucleated Red Blood Cells % 0 %; Platelet Count 233 10^3/cmm (157-399); Red Blood Count 5.24 10^6/uL (3.85-5.65); White Blood Count 8.60 10^3/uL (3.29-11.43)
[2025-01-10 12:29] VITALS: BP 163/93; PULSE 61; O2SAT 96
[2025-01-10 12:29] LABS: Glucose Urine UA Negative (Normal); Nitrate Urine Negative (Negative); Specific Gravity, Urine 1.006 (1.005-1.030)
--- NOTE | 2025-01-10 12:29 | PC.NURSE ---
pt's in room bp is not working, showing module error on screen, charge nurse aware, ticket placed to be fixed, mobile vs bp taken and in room for b/p.
[2025-01-10 12:34] LABS: Troponin(5th) Baseline < 6 ng/L (0-10)
[2025-01-10 13:03] LABS: Alanine Aminotransferase 15 U/L (0-33); Albumin Level 4.1 g/dL (3.5-5.2); Alkaline Phosphatase 89 U/L (35-105); Aspartate Amino Transferase 15 U/L (0-32); Blood Urea Nitrogen 12 mg/dL (8-23); Calcium 9.0 mg/dL (8.5-10.5); Carbon Dioxide 18 mmol/L (22-29); Chloride 109 mmol/L (98-107); Creatinine Clr Calc Pharmacy 71.4235; Globulin 3.1 g/dL (1.3-4.6); Glucose 90 mg/dL (65-115); Osmolality Calculated 289 mOsm/kg (285-295); Sodium 140 mmol/L (136-145); Total Protein 7.2 g/dL (6.6-8.7)
[2025-01-10 13:04] LABS: Anion Gap 16.6 (5-19); Potassium 3.6 mmol/L (3.5-5.1)
[2025-01-10 13:41] VITALS: BP 170/91; PULSE 92; O2SAT 94
== END 2025-01-10 13:42 | disposition home or self-care (01) ==
PROVIDERS: Emergency Provider Emergency Medicine
DX: I10 Essential (primary) hypertension (principal); I49.9 Cardiac arrhythmia, unspecified; E11.9 Type 2 diabetes mellitus without complications; E66.9 Obesity, unspecified; Z68.34 Body mass index [BMI] 34.0-34.9, adult; Z79.84 Long term (current) use of oral hypoglycemic drugs; Z79.899 Other long term (current) drug therapy; F17.200 Nicotine dependence, unspecified, uncomplicated
CPT/HCPCS: 70450; 71045; 80053; 81001; 84484; 85025; 93005; 99285